=== PATIENT | female | born 1970 | race Caucasian/White ===

== ENCOUNTER → 2018-02-13 08:02 | Outpatient (CLI) | payer OTHER, SELFPAY ==
[2018-02-13 09:04] LABS: Hemoglobin A1C% w Est Avg Glu 6.7 % (4.0-6.0)
[2018-02-13 09:41] LABS: Alanine Aminotransferase 33 IU/L (9-52); Albumin 3.9 g/dL (3.5-5.0); Albumin Globulin Ratio 1.5 (1.0-2.8); Alkaline Phosphatase 71 U/L (38-126); Aspartate Aminotransferase 13 IU/L (14-36); BUN Creatinine Ratio 11.4 (6-22); Bilirubin Total 0.3 mg/dL (0.2-1.3); Blood Urea Nitrogen 8 mg/dL (7-17); Calcium 8.8 mg/dL (8.4-10.2); Carbon Dioxide 26 mmol/L (22-32); Chloride 103 mmol/L (98-107); Cholesterol 135 mg/dL (140-199); Estimated Glomerular Filt Rate > 60.0 mL/min (>60); Globulin 2.6 g/dL (1.7-4.1); Glucose 113 mg/dL (70-100); HDL Cholesterol 36 mg/dL (40-60); HEMOLYSIS < 15 (0-50); LDL Cholesterol Calculated 66 mg/dL (<100); Potassium 4.6 mmol/L (3.4-5.1); Sodium 140 mmol/L (137-145); Total Protein 6.5 g/dL (6.3-8.2); Triglycerides 165 mg/dL (35-150)
== END ==
PROVIDERS: PCP Family Medicine; Visit Provider Family Medicine
DX: E78.5 Hyperlipidemia, unspecified (principal); R73.9 Hyperglycemia, unspecified; Z51.81 Encounter for therapeutic drug level monitoring
CPT/HCPCS: 36415; 80053; 80061; 83036

== ENCOUNTER → 2018-04-19 08:21 | Outpatient (CLI) | payer OTHER, SELFPAY ==
[2018-04-19 08:53] LABS: Add Manual Diff / Slide Review NO; Basophils Percent Auto 0.7 % (0-2); Eosinophils Percent Auto 2.3 % (2-4); Hematocrit 43.9 % (36-46); Hemoglobin 14.7 g/dL (12.0-16.0); Lymphocytes Percent Auto 18.1 % (25-40); Mean Corpuscular HGB Conc 33.4 % (30-36); Mean Corpuscular Hemoglobin 30.3 PG (26-34); Mean Corpuscular Volume 90.8 fL (80-100); Monocytes Percent Auto 6.9 % (3-14); Neutrophils Absolute Auto 9100 /uL (1500-7000); Platelet Count 307 X10^3/uL (150-400); Red Blood Cell Count 4.83 X10^6/uL (4.0-5.2); Red Cell Distribution Width 13.3 % (11.6-14.8); White Blood Cell Count 12.6 X10^3/uL (4.5-11.0)
[2018-04-19 09:05] LABS: BUN Creatinine Ratio 11.4 (6-22); Blood Urea Nitrogen 8 mg/dL (7-17); Carbon Dioxide 24 mmol/L (22-32); Chloride 104 mmol/L (98-107); Cholesterol 145 mg/dL (140-199); Estimated Glomerular Filt Rate > 60.0 mL/min (>60); Glucose 120 mg/dL (70-100); HDL Cholesterol 35 mg/dL (40-60); HEMOLYSIS < 15 (0-50); LDL Cholesterol Calculated 84 mg/dL (<100); Potassium 4.3 mmol/L (3.4-5.1); Sodium 140 mmol/L (137-145); Triglycerides 129 mg/dL (35-150)
[2018-04-19 09:44] LABS: Lithium 0.3 mmol/L (0.6-1.2)
[2018-04-19 10:21] LABS: Thyroid Stimulating Hormone 3.17 uIU/mL (0.47-4.68)
== END ==
PROVIDERS: PCP Family Medicine; Visit Provider Psychiatry & Neurology Psychiatry
DX: Z79.899 Other long term (current) drug therapy (principal)
CPT/HCPCS: 36415; 80051; 80061; 80178; 82565; 82947; 84443; 84520; 85025

== ENCOUNTER → 2018-05-21 13:26 | Outpatient (CLI) | payer OTHER, SELFPAY ==
--- NOTE | 2018-05-21 | DI.MG.S_ITS ---
BILATERAL DIGITAL SCREENING MAMMOGRAM 3D/2D WITH CAD: 05/21/2018 CLINICAL: Routine screening. Comparison is made to exams dated: 04/13/2017 mammogram and 03/28/2016 mammogram - [facility]. There are scattered fibroglandular elements in both breasts. Current study was also evaluated with a Computer Aided Detection (CAD) system. There are benign calcifications in both breasts. No significant masses, calcifications, or other findings are seen in either breast. There has been no significant interval change. IMPRESSION: There is no mammographic evidence of malignancy. A 1 year screening mammogram is recommended. This exam was interpreted at Station ID: [id number]. NOTE: For mammograms, a report in lay terms will be sent to the patient. Approximately 15% of breast malignancies will not be visualized mammographically. In the management of a palpable breast mass, a negative mammogram must not discourage biopsy of a clinically suspicious lesion. Electronically Signed By: Cody alicea/geoffrey:05/21/2018 13:55:59 letter sent: Normal Exam ACR BI-RADS Category 2: Benign Finding(s) 3342F
== END ==
PROVIDERS: PCP Family Medicine; Visit Provider Family Medicine
DX: Z12.31 Encounter for screening mammogram for malignant neoplasm of breast (principal)
CPT/HCPCS: 77063; 77067

== ENCOUNTER → 2018-11-16 07:11 | Outpatient (CLI) | payer SELFPAY ==
[2018-11-16 07:47] LABS: Hemoglobin A1C% w Est Avg Glu 6.1 % (4.0-6.0)
[2018-11-16 08:31] LABS: Alanine Aminotransferase 17 IU/L (9-52); Albumin 4.1 g/dL (3.5-5.0); Albumin Globulin Ratio 1.6 (1.0-2.8); Alkaline Phosphatase 63 U/L (38-126); Aspartate Aminotransferase 13 IU/L (14-36); BUN Creatinine Ratio 11.4 (6-22); Bilirubin Total 0.6 mg/dL (0.2-1.3); Blood Urea Nitrogen 8 mg/dL (7-17); Calcium 9.3 mg/dL (8.4-10.2); Carbon Dioxide 24 mmol/L (22-32); Chloride 104 mmol/L (98-107); Cholesterol 136 mg/dL (140-199); Estimated Glomerular Filt Rate > 60.0 mL/min (>60); Globulin 2.6 g/dL (1.7-4.1); Glucose 103 mg/dL (70-100); HDL Cholesterol 33 mg/dL (40-60); HEMOLYSIS < 15 (0-50); LDL Cholesterol Calculated 81 mg/dL (<100); Potassium 4.5 mmol/L (3.4-5.1); Sodium 136 mmol/L (137-145); Total Protein 6.7 g/dL (6.3-8.2); Triglycerides 109 mg/dL (35-150)
== END ==
PROVIDERS: PCP Family Medicine; Visit Provider Family Medicine
DX: I10 Essential (primary) hypertension (principal); Z51.81 Encounter for therapeutic drug level monitoring
CPT/HCPCS: 36415; 80053; 80061; 83036

== ENCOUNTER → 2019-05-30 11:23 | Outpatient (CLI) | payer OTHER, SELFPAY ==
--- NOTE | 2019-05-30 11:42 | DI.MG.S_ITS ---
Patient Name: NAZ WELLER date: 1970 Sex: F Attending Physician: Hood Indications: Date: 05/30/2019 11:42 At the request of: MARYLIN CARRION Procedure: MM screening mammo BI BILATERAL DIGITAL SCREENING MAMMOGRAM 3D/2D WITH CAD: 05/30/2019 CLINICAL: Routine screening. Comparison is made to exams dated: 05/21/2018 mammogram, 04/13/2017 mammogram, and 03/28/2016 mammogram - [facility]. The tissue of both breasts is heterogeneously dense. This may lower the sensitivity of mammography. Current study was also evaluated with a Computer Aided Detection (CAD) system. No significant masses, calcifications, or other findings are seen in either breast. There has been no significant interval change. IMPRESSION: NEGATIVE There is no mammographic evidence of malignancy. A 1 year screening mammogram is recommended. This exam was interpreted at Station ID: [id number]. NOTE: For mammograms, a report in lay terms will be sent to the patient. Approximately 15% of breast malignancies will not be visualized mammographically. In the management of a palpable breast mass, a negative mammogram must not discourage biopsy of a clinically suspicious lesion. Electronically Signed By: George crawford/geoffrey:05/30/2019 18:29:35 letter sent: Normal Exam ACR BI-RADS Category 1: Negative 3341F
== END ==
PROVIDERS: PCP Family Medicine; Referring Provider Family Medicine; Visit Provider Family Medicine
DX: Z12.31 Encounter for screening mammogram for malignant neoplasm of breast (principal)
CPT/HCPCS: 77063; 77067

== ENCOUNTER → 2019-06-20 07:21 | Outpatient (CLI) | payer OTHER, SELFPAY ==
[2019-06-20 08:52] LABS: Add Manual Diff / Slide Review NO; Basophils Absolute Auto 100 /uL (0-100); Basophils Percent Auto 0.7 % (0-2); Eosinophils Absolute Auto 200 /uL (0-450); Eosinophils Percent Auto 2.2 % (2-4); Hematocrit 44.2 % (36-46); Hemoglobin 15.2 g/dL (12.0-16.0); Lymphocytes Absolute Auto 1900 /uL (1100-4500); Mean Corpuscular HGB Conc 34.4 % (30-36); Mean Corpuscular Hemoglobin 31.5 PG (26-34); Mean Corpuscular Volume 91.7 fL (80-100); Monocytes Absolute Auto 700 /uL (0-900); Monocytes Percent Auto 6.8 % (3-14); Neutrophils Absolute Auto 6900 /uL (1500-7000); Neutrophils Percent Auto 70.3 % (50-75); Platelet Count 298 X10^3/uL (150-400); Red Blood Cell Count 4.82 X10^6/uL (4.0-5.2); Red Cell Distribution Width 12.8 % (11.6-14.8); White Blood Cell Count 9.7 X10^3/uL (4.5-11.0)
[2019-06-20 09:24] LABS: Alanine Aminotransferase 21 IU/L (<35); Albumin 4.2 g/dL (3.5-5.0); Albumin Globulin Ratio 1.4 (1.0-2.8); Alkaline Phosphatase 68 U/L (38-126); Aspartate Aminotransferase 20 IU/L (14-36); Bilirubin Total 0.3 mg/dL (0.2-1.3); Blood Urea Nitrogen 15 mg/dL (7-17); Calcium 8.8 mg/dL (8.4-10.2); Carbon Dioxide 22 mmol/L (22-32); Chloride 105 mmol/L (98-107); Cholesterol 146 mg/dL (140-199); Estimated Glomerular Filt Rate > 60.0 mL/min (>60); Globulin 2.9 g/dL (1.7-4.1); Glucose 129 mg/dL (70-100); HDL Cholesterol 31 mg/dL (40-60); HEMOLYSIS < 15 (0-50); LDL Cholesterol Calculated 83 mg/dL (<100); Potassium 4.3 mmol/L (3.4-5.1); Sodium 137 mmol/L (137-145); Total Protein 7.1 g/dL (6.3-8.2); Triglycerides 161 mg/dL (35-150)
[2019-06-21 11:14] LABS: Hemoglobin A1C% w Est Avg Glu 6.4 % (4.0-6.0)
== END ==
PROVIDERS: Nurse Practitioner Family; Referring Provider Family Medicine; Visit Provider Family Medicine
DX: E78.5 Hyperlipidemia, unspecified (principal); G47.00 Insomnia, unspecified; I10 Essential (primary) hypertension; F43.10 Post-traumatic stress disorder, unspecified
CPT/HCPCS: 36415; 80053; 80061; 83036; 85025

== ENCOUNTER → 2019-08-09 07:13 | Outpatient (CLI) | payer OTHER, SELFPAY ==
[2019-08-09 08:04] LABS: Add Manual Diff / Slide Review NO; Basophils Absolute Auto 100 /uL (0-100); Basophils Percent Auto 0.8 % (0-2); Eosinophils Absolute Auto 200 /uL (0-450); Eosinophils Percent Auto 2.3 % (2-4); Hematocrit 44.6 % (36-46); Lymphocytes Absolute Auto 2200 /uL (1100-4500); Lymphocytes Percent Auto 26.2 % (25-40); Mean Corpuscular HGB Conc 33.6 % (30-36); Mean Corpuscular Hemoglobin 31.2 PG (26-34); Mean Corpuscular Volume 92.8 fL (80-100); Monocytes Absolute Auto 700 /uL (0-900); Monocytes Percent Auto 7.9 % (3-14); Neutrophils Absolute Auto 5300 /uL (1500-7000); Neutrophils Percent Auto 62.8 % (50-75); Platelet Count 325 X10^3/uL (150-400); Red Blood Cell Count 4.81 X10^6/uL (4.0-5.2); Red Cell Distribution Width 12.9 % (11.6-14.8); White Blood Cell Count 8.4 X10^3/uL (4.5-11.0)
[2019-08-09 08:17] LABS: Alanine Aminotransferase 20 IU/L (<35); Albumin 4.3 g/dL (3.5-5.0); Albumin Globulin Ratio 1.4 (1.0-2.8); Alkaline Phosphatase 62 U/L (38-126); Aspartate Aminotransferase 19 IU/L (14-36); BUN Creatinine Ratio 18.5 (6-22); Bilirubin Total 0.3 mg/dL (0.2-1.3); Blood Urea Nitrogen 12 mg/dL (7-17); Calcium 8.7 mg/dL (8.4-10.2); Carbon Dioxide 25 mmol/L (22-32); Chloride 107 mmol/L (98-107); Cholesterol 167 mg/dL (140-199); Estimated Glomerular Filt Rate > 60.0 mL/min (>60); Glucose 121 mg/dL (70-100); HDL Cholesterol 32 mg/dL (40-60); HEMOLYSIS < 15 (0-50); LDL Cholesterol Calculated 98 mg/dL (<100); Potassium 4.2 mmol/L (3.4-5.1); Sodium 138 mmol/L (137-145); Total Protein 7.3 g/dL (6.3-8.2); Triglycerides 185 mg/dL (35-150)
[2019-08-09 08:21] LABS: Lithium 0.5 mmol/L (0.6-1.2)
[2019-08-09 08:24] LABS: Hemoglobin A1C% w Est Avg Glu 6.6 % (4.0-6.0)
== END ==
PROVIDERS: Referring Provider Psychiatry & Neurology Psychiatry; Visit Provider Psychiatry & Neurology Psychiatry
DX: Z13.1 Encounter for screening for diabetes mellitus (principal); Z13.228 Encounter for screening for other metabolic disorders; Z79.899 Other long term (current) drug therapy
CPT/HCPCS: 36415; 80053; 80061; 80178; 83036; 84443; 85025

== ENCOUNTER → 2019-10-04 07:07 | Outpatient (CLI) | payer OTHER, SELFPAY ==
[2019-10-04 08:21] LABS: Hemoglobin A1C% w Est Avg Glu 6.5 % (4.0-6.0)
[2019-10-04 08:24] LABS: Blood Urea Nitrogen 11 mg/dL (7-17); Calcium 8.8 mg/dL (8.4-10.2); Carbon Dioxide 24 mmol/L (22-32); Chloride 106 mmol/L (98-107); Estimated Glomerular Filt Rate > 60.0 mL/min (>60); Glucose 112 mg/dL (70-100); HEMOLYSIS < 15 (0-50); Potassium 4.6 mmol/L (3.4-5.1); Sodium 134 mmol/L (137-145)
[2019-10-04 10:42] LABS: Creatinine Urine Random 48.2 mg/dL
[2019-10-04 10:45] LABS: Microalbumi Creatinin Ratio Ur 45.6 ug/mg CR (<30); Microalbumin Urine Random 2.2 mg/dL (0-1.6)
== END ==
PROVIDERS: PCP Nurse Practitioner Family; Referring Provider Nurse Practitioner Family; Visit Provider Nurse Practitioner Family
DX: E11.9 Type 2 diabetes mellitus without complications (principal)
CPT/HCPCS: 36415; 80048; 82043; 82570; 83036

== ENCOUNTER → 2020-04-03 07:13 | Outpatient (CLI) | payer OTHER, SELFPAY ==
[2020-04-03 08:21] LABS: Hemoglobin A1C% w Est Avg Glu 6.7 % (4.0-6.0)
[2020-04-03 08:28] LABS: BUN Creatinine Ratio 17.9 (6-22); Blood Urea Nitrogen 10 mg/dL (7-17); Calcium 8.9 mg/dL (8.4-10.2); Carbon Dioxide 28 mmol/L (22-32); Chloride 105 mmol/L (98-107); Estimated Glomerular Filt Rate > 60.0 mL/min (>60); Glucose 120 mg/dL (70-100); HEMOLYSIS < 15 (0-50); Potassium 4.5 mmol/L (3.4-5.1); Sodium 136 mmol/L (137-145)
== END ==
PROVIDERS: PCP Nurse Practitioner Family; Referring Provider Nurse Practitioner Family; Visit Provider Nurse Practitioner Family
DX: E11.9 Type 2 diabetes mellitus without complications (principal)
CPT/HCPCS: 36415; 80048; 83036

== ENCOUNTER → 2020-06-03 15:38 | Outpatient (CLI) | payer OTHER, SELFPAY ==
--- NOTE | 2020-06-03 | DI.MG.S_ITS ---
BILATERAL DIGITAL SCREENING MAMMOGRAM 3D/2D WITH CAD: 06/03/2020 CLINICAL: Routine screening. Comparison is made to exams dated: 05/30/2019 mammogram, 05/21/2018 mammogram, and 04/13/2017 mammogram - [facility]. The tissue of both breasts is heterogeneously dense. This may lower the sensitivity of mammography. Current study was also evaluated with a Computer Aided Detection (CAD) system. No significant masses, calcifications, or other findings are seen in either breast. There has been no significant interval change. IMPRESSION: NEGATIVE There is no mammographic evidence of malignancy. A 1 year screening mammogram is recommended. This exam was interpreted at Station ID: [id number]. NOTE: For mammograms, a report in lay terms will be sent to the patient. Approximately 15% of breast malignancies will not be visualized mammographically. In the management of a palpable breast mass, a negative mammogram must not discourage biopsy of a clinically suspicious lesion. Electronically Signed By: Kevin Alvarenga acr/penrad:06/03/2020 16:59:15 letter sent: Normal Exam ACR BI-RADS Category 1: Negative 3341F
== END ==
PROVIDERS: PCP Nurse Practitioner Family; Referring Provider Nurse Practitioner Family; Visit Provider Nurse Practitioner Family
DX: Z12.31 Encounter for screening mammogram for malignant neoplasm of breast (principal)
CPT/HCPCS: 77063; 77067

== ENCOUNTER 2020-06-07 18:02 | Emergency (ER) | payer OTHER, SELFPAY ==
[2020-06-07 18:19] VITALS: BP 122/58; PULSE 77; RESP 16; TEMP 36.8; O2SAT 97; BMI 26.5
--- NOTE | 2020-06-07 18:30 | ED.BACK ---
HPI - Back Pain/Injury General Chief Complaint: Back Pain/Injury Stated Complaint: pain in lower back and hip Time Seen by Provider: 06/07/20 18:27 History of Present Illness HPI Narrative: 49-year-old woman with a history of bipolar disorder currently stable on medications including lithium, diabetes and hyperlipidemia presents with acute back pain. She has had intermittent issues with her neck and upper back due to posture, work position, sitting in computers and very large breasts complicating issues. She has not typically have problems with low back pain. Today she was standing outside she coughed and felt a slight twinge in the left side of her lower back that rapidly progressed to severe spasm to the point that she had trouble walking up to stairs. She notes that 2 or 3 days ago she was moving and debbie and and felt a slight twinge in her low back and had been noticing that that area was slightly more sensitive but it having particularly been bothering her. For pain medication she uses topical Voltaren and tries to avoid home medications to not complicate any of her lithium levels. She has had no fever or chills, there is no IV drug use, she has has no interventions or procedures to her spine. She describes no rashes, no abdominal pain, no flank pain no dysuria. No cough or palpitations. Related Data Home Medications Medication Instructions Recorded Confirmed calcium carbonate 600 mg PO QDAY #0 07/28/17 08/14/19 lurasidone [Latuda] 60 mg PO QDAY #0 07/28/17 08/14/19 lithium carbonate 600 mg capsule 600 mg PO BEDTIME 08/14/19 08/14/19 sertraline 50 mg tablet 50 mg PO DAILY 08/14/19 08/14/19 Previous Rx's Medication Instructions Recorded atorvastatin 10 mg tablet 10 mg PO HS #90 tab 11/18/19 diclofenac sodium 1 % topical gel 2 g TOPICAL QID #100 g 04/21/20 metformin 500 mg tablet,extended See Rx Instructions .ROUTE 04/21/20 release 24 hr .COMPLEX #90 tab diazepam 5 mg PO TID PRN #14 tab 06/07/20 Allergies Allergy/AdvReac Type Severity Reaction Status Date / Time codeine [CODEINE] Allergy Unknown Verified 08/14/19 12:03 Review of Systems Review of Systems ROS Unobtainable: All systems reviewed & are unremarkable except as noted in HPI and below Patient History Medical History Bipolar disorder HTN (hypertension) Hyperlipidemia Neck muscle strain Type 2 diabetes mellitus without complication (07/2019) Surgical History Status post appendectomy Status post delivery Social History Smoking Status: Current every day smoker quit status: considering quitting second hand exposure: No alcohol intake: never substance use type: marijuana (daily ) Smoking Status: Current every day smoker Exam Narrative Exam Narrative: General: Healthy appearing, in in significant pain but able to give a complete and coherent history. Well-nourished well-developed Neck: supple, no significant neck pain or decreased range of motion Respiratory: Lungs are clear to auscultation, no wheezing no rales no rhonchi. Full and symmetrical air movement Cardiac: Regular rate and rhythm no murmurs no bruits Abdomen: Soft, nontender, good bowel tones, no flank pain Skin: Warm and dry, no rashes Neurologic: Grossly neurologically intact with no obvious asymmetries or abnormalities. Symmetrical patellar reflexes and ankle jerks. No specific weakness in the lower extremities and no loss of sensation to the perineum. She is able to walk, gait is antalgic Extremities: No trauma, well perfused, straight leg lift on the left does cause an increase in the muscle spasm but she is able to fully extend. Minimal difficulties with fully extending the right leg. Psych: Cooperative, appropriate insight and affect Initial Vital Signs Initial Vital Signs: Vital Signs Temperature 98.3 F 06/07/20 18:19 Pulse Rate 77 06/07/20 18:19 Respiratory Rate 16 06/07/20 18:19 Blood Pressure 122/58 L 06/07/20 18:19 Pulse Oximetry 97 06/07/20 18:19 Course Orders Ordered: Discontinued Medications Diazepam (Diazepam 5 Mg Tablet) 5 mg PO NOW ONE Stop: 06/07/20 18:48 Last Admin: 06/07/20 19:17 Dose: 5 mg Documented by: VENESSA Ketorolac Tromethamine (Ketorolac 60 Mg/2 Ml Vial) 30 mg IM NOW ONE Stop: 06/07/20 18:48 Last Admin: 06/07/20 19:18 Dose: 30 mg Documented by: VENESSA Vital Signs Vital signs: Vital Signs - 8 hr 06/07/20 18:19 Temperature 98.3 F Pulse Rate 77 Respiratory Rate 16 Blood Pressure 122/58 L Pulse Oximetry 97 [facility] - Back Pain/Injury Medical Records Attestation: I reviewed the patient's medical records. Lab Data Attestation: I reviewed the patient's lab results. [facility] Narrative Medical decision making narrative: 49-year-old woman with acute low back strain no evidence of trauma, infection/epidural abscess or other red flags that need additional workup per imaging. She responded nicely to IM Toradol and 5 mg of oral diazepam for muscle spasm. At this point she is safe for home discharge Discharge Plan Departure Patient Disposition: Home Clinical Impression: Acute back pain Qualifiers: Back pain location: low back pain Back pain laterality: right Sciatica presence: without sciatica Qualified Code(s): M54.5 - Low back pain Instructions: DI for Back Strain or Sprain Activity Restrictions/Additional Instructions: Thank you for coming in today You have a fairly classic presentation of an acute back strain. There is no evidence of more significant disease or pathology on your exam today. You are given a shot of Toradol(similar to ibuprofen) for pain and oral diazepam to help with muscle spasm. Using 400 mg of ibuprofen (2 [id number] pills) and 1 Tylenol every 6 hours can be very helpful in controlling pain. To this you can add 5 mg of diazepam for muscle spasm up to every 8 hours. Please make sure you do remain active, walking can be helpful in getting you back to full activity sooner. I would encourage you to schedule that PT appointment that you have been putting off. If things get worse, please feel free to return to the emergency department Prescriptions: New diazepam 5 mg tablet 5 mg PO TID PRN (Reason: muscle spasm) Qty: 14 RF: 0 No Action calcium carbonate 600 MG tablet 600 mg PO QDAY Qty: 0 RF: 0 lurasidone [Latuda] 60 MG tablet 60 mg PO QDAY Qty: 0 RF: 0 atorvastatin [Lipitor] 10 mg tablet 10 mg PO HS Qty: 90 RF: 2 sertraline 50 mg tablet 50 mg PO DAILY RF: 0 lithium carbonate 600 mg capsule 600 mg PO BEDTIME RF: 0 metformin 500 mg tablet extended release 24 hr See Rx Instructions .ROUTE .COMPLEX Qty: 90 RF: 2 diclofenac sodium 1 % gel 2 g topical QID Qty: 100 RF: 0 Referrals: Murphy Woodard ARNP [Primary Care Provider] -
[2020-06-07] MEDS: diazePAM 5 MG TABLET PO (19:17)
[2020-06-07] MEDS: KETOROLAC 60 MG/2 ML VIAL 30 MG IM (19:18)
[2020-06-07 20:16] VITALS: BP 104/54; PULSE 70; RESP 16; O2SAT 98
== END 2020-06-07 20:18 | disposition home or self-care (01) ==
PROVIDERS: Emergency Provider Emergency Medicine; PCP Nurse Practitioner Family
DX: M54.5 Low back pain (principal); M62.830 Muscle spasm of back; F31.9 Bipolar disorder, unspecified; I10 Essential (primary) hypertension; E78.5 Hyperlipidemia, unspecified; E11.9 Type 2 diabetes mellitus without complications
CPT/HCPCS: 96372; 99281; 99283; J1885

== ENCOUNTER → 2020-07-06 07:22 | Outpatient (CLI) | payer OTHER, SELFPAY ==
[2020-07-06 08:10] LABS: Hematocrit 42.5 % (36-46); Hemoglobin 14.6 g/dL (12.0-16.0); Mean Corpuscular HGB Conc 34.3 % (30-36); Mean Corpuscular Hemoglobin 31.4 PG (26-34); Mean Corpuscular Volume 91.6 fL (80-100); Platelet Count 298 X10^3/uL (150-400); Red Blood Cell Count 4.63 X10^6/uL (4.0-5.2); Red Cell Distribution Width 12.9 % (11.6-14.8); White Blood Cell Count 7.8 X10^3/uL (4.5-11.0)
[2020-07-06 08:26] LABS: Hemoglobin A1C% w Est Avg Glu 6.5 % (4.0-6.0)
[2020-07-06 08:33] LABS: Alanine Aminotransferase 21 IU/L (<35); Albumin 4.2 g/dL (3.5-5.0); Albumin Globulin Ratio 1.7 (1.0-2.8); Alkaline Phosphatase 64 U/L (38-126); Aspartate Aminotransferase 20 IU/L (14-36); BUN Creatinine Ratio 17.9 (6-22); Bilirubin Total 0.2 mg/dL (0.2-1.3); Blood Urea Nitrogen 10 mg/dL (7-17); Calcium 8.7 mg/dL (8.4-10.2); Carbon Dioxide 25 mmol/L (22-32); Chloride 107 mmol/L (98-107); Cholesterol 175 mg/dL (140-199); Estimated Glomerular Filt Rate > 60.0 mL/min (>60); Globulin 2.5 g/dL (1.7-4.1); Glucose 137 mg/dL (70-100); HDL Cholesterol 39 mg/dL (40-60); HEMOLYSIS < 15 (0-50); LDL Cholesterol Calculated 104 mg/dL (<100); Potassium 4.5 mmol/L (3.4-5.1); Sodium 135 mmol/L (137-145); Total Protein 6.7 g/dL (6.3-8.2); Triglycerides 162 mg/dL (35-150)
== END ==
PROVIDERS: PCP Nurse Practitioner Family; Referring Provider Nurse Practitioner Family; Visit Provider Nurse Practitioner Family
DX: Z00.00 Encounter for general adult medical examination without abnormal findings (principal); E11.9 Type 2 diabetes mellitus without complications; E78.5 Hyperlipidemia, unspecified; I10 Essential (primary) hypertension; Z13.6 Encounter for screening for cardiovascular disorders
CPT/HCPCS: 36415; 80053; 80061; 83036; 85027

== ENCOUNTER → 2020-10-28 07:02 | Outpatient (CLI) | payer OTHER, SELFPAY ==
[2020-10-28 08:46] LABS: Hemoglobin A1C% w Est Avg Glu 6.6 % (4.0-6.0)
[2020-10-28 08:52] LABS: Alanine Aminotransferase 19 IU/L (<35); Albumin Globulin Ratio 1.5 (1.0-2.8); Alkaline Phosphatase 48 U/L (38-126); Aspartate Aminotransferase 18 IU/L (14-36); BUN Creatinine Ratio 16.1 (6-22); Bilirubin Total 0.2 mg/dL (0.2-1.3); Blood Urea Nitrogen 9 mg/dL (7-17); Calcium 8.9 mg/dL (8.4-10.2); Carbon Dioxide 24 mmol/L (22-32); Chloride 107 mmol/L (98-107); Cholesterol 152 mg/dL (140-199); Estimated Glomerular Filt Rate > 60.0 mL/min (>60); Globulin 2.6 g/dL (1.7-4.1); Glucose 130 mg/dL (70-100); HDL Cholesterol 35 mg/dL (40-60); HEMOLYSIS < 15 (0-50); LDL Cholesterol Calculated 101 mg/dL (<100); Potassium 4.3 mmol/L (3.4-5.1); Sodium 137 mmol/L (137-145); Total Protein 6.6 g/dL (6.3-8.2); Triglycerides 80 mg/dL (35-150)
== END ==
PROVIDERS: PCP Nurse Practitioner Family; Referring Provider Psychiatry & Neurology Psychiatry; Visit Provider Psychiatry & Neurology Psychiatry
DX: Z79.899 Other long term (current) drug therapy (principal); E11.9 Type 2 diabetes mellitus without complications; Z00.00 Encounter for general adult medical examination without abnormal findings; E78.2 Mixed hyperlipidemia
CPT/HCPCS: 36415; 80053; 80061; 83036

== ENCOUNTER → 2021-06-08 11:06 | Outpatient (CLI) | payer OTHER, SELFPAY ==
--- NOTE | 2021-06-08 | DI.MG.S_ITS ---
BILATERAL DIGITAL SCREENING MAMMOGRAM 3D/2D WITH CAD: 06/08/2021 CLINICAL: Routine screening. Comparison is made to exams dated: 05/30/2019 mammogram, 05/21/2018 mammogram, and 04/13/2017 mammogram - [facility]. There are scattered fibroglandular elements in both breasts. Current study was also evaluated with a Computer Aided Detection (CAD) system. No significant masses, calcifications, or other findings are seen in either breast. There has been no significant interval change. IMPRESSION: NEGATIVE There is no mammographic evidence of malignancy. A 1 year screening mammogram is recommended. This exam was interpreted at Station ID: [id number]. NOTE: For mammograms, a report in lay terms will be sent to the patient. Approximately 15% of breast malignancies will not be visualized mammographically. In the management of a palpable breast mass, a negative mammogram must not discourage biopsy of a clinically suspicious lesion. Electronically Signed By: Constanza leonard/geoffrey:06/08/2021 12:26:01 letter sent: Normal Exam ACR BI-RADS Category 1: Negative 3341F
== END ==
PROVIDERS: PCP Nurse Practitioner Family; Referring Provider Nurse Practitioner Family; Visit Provider Nurse Practitioner Family
DX: Z12.31 Encounter for screening mammogram for malignant neoplasm of breast (principal)
CPT/HCPCS: 77063; 77067

== ENCOUNTER → 2021-07-05 07:03 | Outpatient (CLI) | payer OTHER, SELFPAY ==
[2021-07-05 09:01] LABS: Hematocrit 41.2 % (36-46); Hemoglobin 14.2 g/dL (12.0-16.0); Mean Corpuscular HGB Conc 34.4 % (30-36); Mean Corpuscular Hemoglobin 30.8 PG (26-34); Mean Corpuscular Volume 89.3 fL (80-100); Platelet Count 302 X10^3/uL (150-400); Red Blood Cell Count 4.61 X10^6/uL (4.0-5.2); Red Cell Distribution Width 12.6 % (11.6-14.8); White Blood Cell Count 7.3 X10^3/uL (4.5-11.0)
[2021-07-05 09:11] LABS: Hemoglobin A1C% w Est Avg Glu 7.2 % (4.0-6.0)
[2021-07-05 09:47] LABS: Alanine Aminotransferase 24 IU/L (<35); Albumin 4.4 g/dL (3.5-5.0); Albumin Globulin Ratio 1.6 (1.0-2.8); Alkaline Phosphatase 56 U/L (38-126); Aspartate Aminotransferase 20 IU/L (14-36); BUN Creatinine Ratio 17.4 (6-22); Bilirubin Total 0.3 mg/dL (0.2-1.3); Blood Urea Nitrogen 12 mg/dL (7-17); Calcium 8.8 mg/dL (8.4-10.2); Carbon Dioxide 24 mmol/L (22-32); Chloride 107 mmol/L (98-107); Estimated Glomerular Filt Rate > 60.0 mL/min (>60); Globulin 2.7 g/dL (1.7-4.1); Glucose 137 mg/dL (70-100); HEMOLYSIS < 15 (0-50); Potassium 4.2 mmol/L (3.4-5.1); Sodium 136 mmol/L (137-145); Total Protein 7.1 g/dL (6.3-8.2)
== END ==
PROVIDERS: PCP Nurse Practitioner Family; Referring Provider Nurse Practitioner Family; Visit Provider Nurse Practitioner Family
DX: E11.9 Type 2 diabetes mellitus without complications (principal); I10 Essential (primary) hypertension; Z00.00 Encounter for general adult medical examination without abnormal findings
CPT/HCPCS: 36415; 80053; 83036; 85027

== ENCOUNTER → 2021-07-15 13:50 | Outpatient (CLI) | payer OTHER, SELFPAY ==
[2021-07-15 14:37] LABS: Appearance Urine UA CLEAR; Bilirubin Urine UA NEGATIVE (NEGATIVE); Color Urine UA YELLOW; Glucose Urine UA NEGATIVE (Negative); Ketones Urine UA NEGATIVE (NEGATIVE); Leukocyte Esterase Urine UA NEGATIVE (NEGATIVE); Nitrite Urine UA NEGATIVE (Negative); Occult Blood Urine UA NEGATIVE (Negative); Protein Urine UA NEGATIVE (Negative); Specific Gravity Urine UA <=1.005 (1.000-1.035); Urobilinogen Urine UA 0.2 E.U./dL (0.2)
[2021-07-15 14:42] LABS: pH Urine UA 5.5 (4.5-8.0)
[2021-07-15 14:47] LABS: Bacteria Urine None Seen; Culture Indicated Urine Cult Not Indicated; RBC Urine None Seen (0-5/HPF); WBC Urine None Seen (0-5/HPF)
== END ==
PROVIDERS: PCP Nurse Practitioner Family; Referring Provider Nurse Practitioner Family; Visit Provider Nurse Practitioner Family
DX: R35.0 Frequency of micturition (principal)
CPT/HCPCS: 81001

== ENCOUNTER → 2022-06-08 06:57 | Outpatient (CLI) | payer OTHER, SELFPAY ==
[2022-06-08 07:26] LABS: Add Manual Diff / Slide Review NO; Basophils Absolute Auto 100 /uL (0-100); Basophils Percent Auto 0.8 % (0-2); Eosinophils Absolute Auto 300 /uL (0-450); Eosinophils Percent Auto 3.3 % (2-4); Hematocrit 40.8 % (36-46); Lymphocytes Absolute Auto 1600 /uL (1100-4500); Lymphocytes Percent Auto 19.4 % (25-40); Mean Corpuscular HGB Conc 34.2 % (30-36); Mean Corpuscular Volume 87.5 fL (80-100); Monocytes Absolute Auto 500 /uL (0-900); Monocytes Percent Auto 5.4 % (3-14); Neutrophils Absolute Auto 6000 /uL (1500-7000); Neutrophils Percent Auto 71.1 % (50-75); Platelet Count 350 X10^3/uL (150-400); Red Blood Cell Count 4.66 X10^6/uL (4.0-5.2); Red Cell Distribution Width 13.2 % (11.6-14.8); White Blood Cell Count 8.4 X10^3/uL (4.5-11.0)
[2022-06-08 07:34] LABS: Hemoglobin A1C% w Est Avg Glu 7.2 % (4.0-6.0)
[2022-06-08 07:45] LABS: Alanine Aminotransferase 30 IU/L (<35); Albumin 4.4 g/dL (3.5-5.0); Albumin Globulin Ratio 1.6 (1.0-2.8); Alkaline Phosphatase 65 U/L (38-126); Aspartate Aminotransferase 22 IU/L (14-36); BUN Creatinine Ratio 13.8 (6-22); Bilirubin Total 0.3 mg/dL (0.2-1.3); Blood Urea Nitrogen 8 mg/dL (7-17); Calcium 8.7 mg/dL (8.4-10.2); Carbon Dioxide 25 mmol/L (22-32); Chloride 103 mmol/L (98-107); Cholesterol 160 mg/dL (140-199); Estimated Glomerular Filt Rate > 60 mL/min (>60); Globulin 2.7 g/dL (1.7-4.1); Glucose 147 mg/dL (70-100); HDL Cholesterol 44 mg/dL (40-60); HEMOLYSIS < 15 (0-50); LDL Cholesterol Calculated 85 mg/dL (<100); Potassium 4.5 mmol/L (3.4-5.1); Sodium 135 mmol/L (137-145); Total Protein 7.1 g/dL (6.3-8.2); Triglycerides 155 mg/dL (35-150)
[2022-06-08 08:01] LABS: Prolactin 8.1 ng/mL (3.0-18.6)
[2022-06-08 09:05] LABS: Iron 67 ug/dL (37-170); Lithium 0.3 mmol/L (0.6-1.2)
[2022-06-08 09:20] LABS: Vitamin D 25 Hydroxy (D3) 47.6 ng/mL (30.0-100.0)
[2022-06-08 09:34] LABS: Thyroid Stimulating Hormone 1.02 uIU/mL (0.47-4.68)
== END ==
PROVIDERS: Pediatrics; PCP Family Medicine; Referring Provider Psychiatry & Neurology Psychiatry; Visit Provider Psychiatry & Neurology Psychiatry
DX: Z79.899 Other long term (current) drug therapy (principal); E11.9 Type 2 diabetes mellitus without complications
CPT/HCPCS: 36415; 80053; 80061; 80178; 82306; 83036; 83540; 84146; 84443; 85025

== ENCOUNTER → 2022-06-27 14:44 | Outpatient (CLI) | payer OTHER, SELFPAY ==
--- NOTE | 2022-06-27 | DI.MG.S_ITS ---
BILATERAL DIGITAL SCREENING MAMMOGRAM 3D/2D WITH CAD: 06/27/2022 CLINICAL: Routine screening. Comparison is made to exams dated: 06/08/2021 mammogram, 06/03/2020 mammogram, and 05/30/2019 mammogram - [facility]. There are scattered areas of fibroglandular density in both breasts (category b / 25%-50% glandular tissue). Current study was also evaluated with a Computer Aided Detection (CAD) system. No significant masses, calcifications, or other findings are seen in either breast. There has been no significant interval change. IMPRESSION: NEGATIVE There is no mammographic evidence of malignancy. A 1 year screening mammogram is recommended. Based on the Tyrer Cuzick model (a risk assessment model) the patient's lifetime risk is 9.3% and her 10 year risk is 2.2%. According to the ACR, ACS, and NCCN guidelines, an annual breast MRI exam along with mammogram is recommended if the patient's lifetime risk is 20% or greater. This exam was interpreted at Station ID: [id number]. NOTE: For mammograms, a report in lay terms will be sent to the patient. Approximately 15% of breast malignancies will not be visualized mammographically. In the management of a palpable breast mass, a negative mammogram must not discourage biopsy of a clinically suspicious lesion. Electronically Signed By: Cameron Henderson M.D., jr/geoffrey:06/28/2022 14:05:17 letter sent: Normal Exam ACR BI-RADS Category 1: Negative 3341F
--- NOTE | 2022-06-27 15:15 | DI.DEXA.S_ITS ---
Indication: screening for osteoporosis; Referring Provider: YAMILET PAN Study: Bone densitometry was performed. Exam Date: June 27, 2022 Accession number: [id number] Bone Density: Region BMD T-score Z-score Classification AP Spine(L1, L2, L4) 1.081 0.4 1.2 Normal Femoral Neck (Left) 0.802 -0.4 0.4 Normal Total Hip (Left) 0.971 0.2 0.7 Normal Femoral Neck (Right) 0.771 -0.7 0.1 Normal Total Hip (Right) 0.985 0.4 0.9 Normal Total Hip Mean 0.978 0.3 0.8 Normal World Health Organization criteria for BMD impression classify patients as: Normal (T-score at or above -1.0), Osteopenia (T-score between -1.0 and -2.5), or Osteoporosis (T-score at or below -2.5). 10-year Fracture Risk: FRAX not reported because: Premenopausal woman All T-scores for Spine Total, Hip Total, Femoral Neck at or above -1.0 Impression: The patient's bone mass is within expected range for age, gender and ethnicity. Discussion: BONE DENSITY IS WITHIN EXPECTED LIMITS FOR AGE, SEX AND RACE. Bone density is within expected limits for age, sex and race at all sites measured. The patient should follow a healthful lifestyle (good nutrition with adequate calcium and vitamin D, and appropriate weight-bearing exercise). Follow-Up: Consider repeating this study in 5 years or sooner if there is some new clinical indication. Reported by: Natalie Elizondo M.D. on 06/27/2022 3:31:00 PM.
== END ==
PROVIDERS: PCP Family Medicine; Referring Provider Family Medicine; Visit Provider Family Medicine
DX: Z13.820 Encounter for screening for osteoporosis (principal); Z78.0 Asymptomatic menopausal state; Z12.31 Encounter for screening mammogram for malignant neoplasm of breast
CPT/HCPCS: 77063; 77067; 77080

== ENCOUNTER → 2022-07-15 13:17 | Outpatient (CLI) | payer OTHER, SELFPAY ==
[2022-07-15 13:59] LABS: Creatinine Urine Random 14.9 mg/dL
[2022-07-15 14:14] LABS: Microalbumin Urine Random < 0.6 mg/dL (0-1.6)
== END ==
PROVIDERS: PCP Family Medicine; Referring Provider Family Medicine; Visit Provider Family Medicine
DX: E11.9 Type 2 diabetes mellitus without complications (principal); I10 Essential (primary) hypertension
CPT/HCPCS: 82043; 82570

== ENCOUNTER → 2022-09-22 11:03 | Outpatient (CLI) | payer OTHER, SELFPAY ==
--- NOTE | 2022-09-06 16:41 | PT.OIE ---
Current Diagnoses Pain in right wrist (09/22/22) Postural kyphosis, site unspecified (09/22/22) Postural lordosis, site unspecified (09/22/22) Pain in right arm (09/22/22) Past Medical History Bipolar disorder Chronic neck pain (~1999) HTN (hypertension) Hyperlipidemia Type 2 diabetes mellitus without complication (07/2019) Vaping nicotine dependence, tobacco product (04/2021) Past Surgical History (Last Reviewed 05/06/22 @ 13:51 by Kirsten Banda PA-C) Status post appendectomy Status post delivery Visit Care Team Role Provider Type Jaye Hurtado DO Attending Provider Physician Family Provider Primary Care Provider Referring Provider Specialty: Medical Address: [address] [place] [address], [address], [place], [address] Email: [email or web address] Physical Therapy Initial Evaluation PT-OP-A Visit Information Start: 09/02/22 20:37 Freq: Status: Active Protocol: Document 09/06/22 08:03 LRN (Rec: 09/06/22 08:53 LRN [id number]) Out-Patient Physical Therapy Visit Information Visit Information Visit Type Initial Evaluation Visit Start Time 08:03 Visit Stop Time 08:52 Total Visit Minutes 49 Visit Number 1 Evaluation Information Evaluation Date 09/06/22 Precautions Precautions Diabetes type II, depression, neck pain 2019. PT-OP-B Current Condition Start: 09/02/22 20:37 Freq: Status: Active Protocol: Document 09/06/22 08:03 LRN (Rec: 09/06/22 08:53 LRN [id number]) Current Condition History of Current Condition Onset Date November Current Complaints Pain R UE History of Current Condition Pain goes up/down the R arm, starting at lateral elbow. Pt thought it was carpel tunnel. Took time off to have child, then returned to work and then her brother grabbed her R arm and twisted the forearm away from her body; therefore it may have caused the problem . Prior Treatments and Tests No. Future Testing and Treatments Planned Next week nerve conduction test in 9 days. Developmental History Developmental History Has 9 year old son. Had problems with the R arm previously from too much typing and while had similar problem with arm, but not sharp pain like now. Wears compression sleeve over the elbow and a separate one for the wrist. Wears brace at nighttime to keep the R wrist at a good angle. Treatment Goals Patient/Caregiver Goals Pt goals: Improve strength to hold things Decrease pain with grabbing objects the size of a jar. Open new jars using modified techniques. Pt able to work 6 hrs using computer using modified techniques and modalities to elimnate soreness at end of the day. Current Functional Impairments (Reported) Functional Limitations- ADL's Difficulty and pain grabbing and holding things with force (no problems with a cooking or using a knife), and opening jars, working 6hrs or more causes soreness in arm. Functional Limitations- Work/School Returned to work 4 yrs ago after taking time off to have baby. 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 PT-OP-C Subjective Start: 09/02/22 20:37 Freq: Status: Active Protocol: Document 09/06/22 08:03 LRN (Rec: 09/06/22 08:53 LRN [id number]) Patient Questionnaires Quick Dash- Upper Extremity Quick Dash UE Score 34 Quick Dash UE Impairment 20 to 39% Impaired (Score 20- 39) OP-PT Pain Assessment Pain Assessment Grid Paper Pain Assessment Grid Completed Yes Location Suboccipital Pain Location Details Bilateral supoccipital Intensity 6 Scale Used Numeric (0 - 10) Description Aching Description- Other After work R wrist Pain Location Details Lateral elbow to middle finger and up lateral side of arm, neck, under ear Intensity 9 Scale Used Numeric (0 - 10) Description Sharp,Shooting Other Pain Aggravating Factors Grabbing weighted object and after work. PT-OP-H Neuro Start: 09/02/22 20:37 Freq: Status: Active Protocol: Document 09/06/22 08:03 LRN (Rec: 09/06/22 08:53 N [id number]) Sensation Evaluation Gross Sensation Gross Sensation Right UE Impaired Sensation Description Tingling Comments Summary Comments Light tingle in the R hand with prolonged standing. Coordination Evaluation Upper Extremity Tests Right Finger to Nose Test R slight low to tip of nose Left Finger to Nose Test Normal Performance Deep Tendon Reflex & Clonus Assessment Deep Tendon Reflex Bilateral Brachioradialis Deep Tendon Reflex 2+ Normal Right Tricep Deep Tendon Reflex 2+ Normal Right Bicep Deep Tendon Reflex 2+ Normal Brachioradialis Deep Tendon Reflex 2+ Normal Tricep Deep Tendon Reflex 2+ Normal Left Bicep Deep Tendon Reflex 2+ Normal PT-OP-J Posture/Palpation/Skin Start: 09/02/22 20:37 Freq: Status: Active Protocol: Document 09/06/22 08:03 LRN (Rec: 09/06/22 08:53 LRN [id number]) Posture Evaluation Position Sitting Head/C-Spine Posture Side Bent Right T-Spine Posture Increased Kyphosis L-Spine Posture Increased Lordosis Scapula Posture (R) Elevated Arm Posture (L) Internally Rotated,(R) Internally Rotated Knee Posture (L) Genu Recurvatum,(R) Genu Recurvatum Palpation Assessment Location Back Palpation Location R paraspinals Palpation Details Atrophy of muscles. R wrist Palpation Location Dorsal region of mid-section of wrist and digits 2-4 Palpation Details Soreness at end of work day. PT-OP-K Range of Motion Start: 09/02/22 20:37 Freq: Status: Active Protocol: Document 09/06/22 08:03 LRN (Rec: 09/06/22 08:53 LRN [id number]) Elbow/Forearm Range of Motion Elbow/Forearm Right Active ROM Testing Position Sitting Supination (degrees) 64 Comments All motions WNL except as indicated above. Painful with supination. Left Active ROM Testing Position Sitting Supination (degrees) 68 Comments All motions WNL Wrist Goniometric Range of Motion Wrist Right Flexion Active (degrees) 70 Extension Active (degrees) 54 Ulnar Deviation Active (degrees) 28 Radial Deviation Active (degrees) 28 Left Wrist ROM WFL Yes Flexion Active (degrees) 70 Extension Active (degrees) 65 Ulnar Deviation Active (degrees) 40 Radial Deviation Active (degrees) 34 PT-OP-M Strength Start: 09/02/22 20:37 Freq: Status: Active Protocol: Document 09/06/22 08:03 LRN (Rec: 09/06/22 08:53 LRN [id number]) Wrist Strength Wrist Manual Muscle Testing Right Flexion (C7) 3+ Fair+ Extension (C6) 5 Normal Ulnar Deviation 5 Normal Radial Deviation 3 Fair Left Comments Strength is 5/5 Hand Chassis Inspector/Pinch Strength Hand Dominance Hand Dominance Right Hand Strength Right Comments Chassis Inspector strength in kgs (3 trials taken): Right: 8, 6, 6; Avg is 6.7 kgs. Left Comments Chassis Inspector strength in kgs (3 trials taken): Right: 13, 12, 14; Avg is 13 kgs. PT-OP-Q Treatments Start: 09/02/22 20:37 Freq: Status: Active Protocol: Document 09/06/22 08:03 LRN (Rec: 09/06/22 08:53 LRN [id number]) Self-Care/Home Management Treatment Education Patient Education Home Exercise Program Other Education Discussed results of evaluation, goals, and plan of care (POC). Pt agreeable to goals and POC. Activities Self-Care/Home Management Activities I/S pt in self R wrist stretch into extension, UD/RD, using other hand to assist stretch. PT-OP-T Assessment and Plan Start: 09/02/22 20:37 Freq: Status: Active Protocol: Document 09/06/22 08:03 LRN (Rec: 09/06/22 08:53 LRN [id number]) Physical Therapy Assessment Rehab Potential Rehabilitation Potential Good Evaluation Complexity Number of Personal Factors/Comorbidities 1-2 Number of Body Systems Impaired 4 or More Clinical Presentation at Evaluation Evolving Impairments Impairments Activity Tolerance,Functional Activities,Pain,Posture,ROM, Sensation,Soft Tissue Mobility ,Strength Goals Three Impairment Decreased function of R wrist Short Term Goal (STG) Decrease R UE pain with grabbing objects the size of a jar. STG Duration 10/21/22 [facility] Goal (LTG) Pt able to work 6 hrs using computer using modified techniques and modalities to elimnate soreness at end of the day. LTG Duration 11/04/22 Two Impairment Decreased R board filler strength Impairment (Initial) R Chassis Inspector strength in kgs (3 trials taken): Right: 8, 6, 6; Avg is 6.7 kgs. (Initial) L Chassis Inspector strength in kgs (3 trials taken): Right: 13, 12, 14; Avg is 13 kgs. Short Term Goal (STG) Improve strength to hold wide objects like an apple in R hand without pain. STG Duration 10/21/22 [facility] Goal (LTG) Open new jars with R hand using modified techniques. LTG Duration 11/04/22 One Impairment Lacks appropriates self care HEP. Short Term Goal (STG) Pt will be educated in a self care treatment of edema/pain management and modified gripping techniques to decrease pain with use. STG Duration 10/21/22 [facility] Goal (LTG) Pt will be educated in a self snf exer program to improve, posture, R UE mobility, strength and function. LTG Duration 11/04/22 Assessment Summary Assessment Pt is a 52 yo female who presents with possible C7 and UE neural tension (radial> medial>ulnar). Pt c/o R lateral elbow pain that radiates up her neck and down to her wrist and hand. Her forearm/wrist/hand pain appears to be in C7 dermatome and radial nerve sensory patterns. Further assessment of the neck and R shoulder will be needed for cervical and shoulder involvement. DTR response is normal bilaterally. Therapy will focus on further neck/shoulder /elbow/wrist involvement, manual therapy, flexibility & strengthening ex's, functional joint movement and functional movement training. The pt will benefit from skilled physical therapy to promote improved posture, improved R scapular stabilizer strength, and to improve R UE ROM and strength, and to work towards achieving the above stated goals. The pt's rehabilitation may be limited by her insurance limits and currently 6 visits are allowed to start. I recommend if the pt doesn't improve withing the 6 visits, further imaging to rule in/out cervical, shoulder or neck involvement would be appropriate. Physical Therapy Plan Frequency and Duration Frequency of Treatment 2x/Week Plan of Care Start Date 09/06/22 Plan of Care End Date 11/04/22 Therapeutic Interventions Therapeutic Interventions Home Exercise Program,Joint Mobilizations,Manual Therapy, Neuromuscular Re-education, Patient/Caregiver Education, Self-Care/Home Management,Soft Tissue Mobilization,Taping, Therapeutic Activities, Therapeutic Exercises Modalities Cold Pack/Ice Massage,Electric Stimulation,Hot Packs, Traction- Mechanical Next Visit Focus/Plan Next Note Type Treatment Note Next Visit Plan Special Tests (carpal tunnel, Julio C, etc...). Assess for cervical/R UE neural or shoulder involvement (ROM, strength, special tests). Check lateral pinch strength. POC: UE Neural glides, improve mobility, circulation, decrease inflammation/pain. Education: Posture & HEP, Manual therapy, STM, ROM, Strengthening, Modalities (US, Ionto, taping).
--- NOTE | 2022-09-06 16:41 | PT.OPPOC ---
Physical, Occupational & Speech Therapy At [facility] Current Diagnoses Pain in right wrist (09/22/22) Postural kyphosis, site unspecified (09/22/22) Postural lordosis, site unspecified (09/22/22) Pain in right arm (09/22/22) Visit Care Team Role Provider Type Jaye Hurtado DO Attending Provider Physician Family Provider Primary Care Provider Referring Provider Specialty: Medical Address: [address] [place] [address], [address], [place], [address] Email: [email or web address] Plan Of Care PT-OP-T Assessment and Plan Start: 09/02/22 20:37 Freq: Status: Active Protocol: Document 09/06/22 08:03 LRN (Rec: 09/06/22 08:53 LRN [id number]) Physical Therapy Assessment Rehab Potential Rehabilitation Potential Good Evaluation Complexity Number of Personal Factors/Comorbidities 1-2 Number of Body Systems Impaired 4 or More Clinical Presentation at Evaluation Evolving Impairments Impairments Activity Tolerance,Functional Activities,Pain,Posture,ROM, Sensation,Soft Tissue Mobility ,Strength Goals Three Impairment Decreased function of R wrist Short Term Goal (STG) Decrease R UE pain with grabbing objects the size of a jar. STG Duration 10/21/22 Tea Tree Farmer Goal (LTG) Pt able to work 6 hrs using computer using modified techniques and modalities to elimnate soreness at end of the day. LTG Duration 11/04/22 Two Impairment Decreased R senior loan processor strength Impairment (Initial) R Recreation Establishment Manager strength in kgs (3 trials taken): Right: 8, 6, 6; Avg is 6.7 kgs. (Initial) L Recreation Establishment Manager strength in kgs (3 trials taken): Right: 13, 12, 14; Avg is 13 kgs. Short Term Goal (STG) Improve strength to hold wide objects like an apple in R hand without pain. STG Duration 10/21/22 Tea Tree Farmer Goal (LTG) Open new jars with R hand using modified techniques. LTG Duration 11/04/22 One Impairment Lacks appropriates self care HEP. Short Term Goal (STG) Pt will be educated in a self care treatment of edema/pain management and modified gripping techniques to decrease pain with use. STG Duration 10/21/22 Shelter Goal (LTG) Pt will be educated in a self longterm exer program to improve, posture, R UE mobility, strength and function. LTG Duration 11/04/22 Assessment Summary Assessment Pt is a 52 yo female who presents with possible C7 and UE neural tension (radial> medial>ulnar). Pt c/o R lateral elbow pain that radiates up her neck and down to her wrist and hand. Her forearm/wrist/hand pain appears to be in C7 dermatome and radial nerve sensory patterns. Further assessment of the neck and R shoulder will be needed for cervical and shoulder involvement. DTR response is normal bilaterally. Therapy will focus on further neck/shoulder /elbow/wrist involvement, manual therapy, flexibility & strengthening ex's, functional joint movement and functional movement training. The pt will benefit from skilled physical therapy to promote improved posture, improved R scapular stabilizer strength, and to improve R UE ROM and strength, and to work towards achieving the above stated goals. The pt's rehabilitation may be limited by her insurance limits and currently 6 visits are allowed to start. I recommend if the pt doesn't improve withing the 6 visits, further imaging to rule in/out cervical, shoulder or neck involvement would be appropriate. Physical Therapy Plan Frequency and Duration Frequency of Treatment 2x/Week Plan of Care Start Date 09/06/22 Plan of Care End Date 11/04/22 Therapeutic Interventions Therapeutic Interventions Home Exercise Program,Joint Mobilizations,Manual Therapy, Neuromuscular Re-education, Patient/Caregiver Education, Self-Care/Home Management,Soft Tissue Mobilization,Taping, Therapeutic Activities, Therapeutic Exercises Modalities Cold Pack/Ice Massage,Electric Stimulation,Hot Packs, Traction- Mechanical Next Visit Focus/Plan Next Note Type Treatment Note Next Visit Plan Special Tests (carpal tunnel, Julio C, etc...). Assess for cervical/R UE neural or shoulder involvement (ROM, strength, special tests). Check lateral pinch strength. POC: UE Neural glides, improve mobility, circulation, decrease inflammation/pain. Education: Posture & HEP, Manual therapy, STM, ROM, Strengthening, Modalities (US, Ionto, taping). Plan of Care Dates Plan of Care Start Date 09/06/22 Plan of Care End Date 11/04/22 Electronically Signed by: Sandrine Parker, PT 09/06/22 4810 If you are in agreement with this Plan of Care, please return a signed and dated copy. I have reviewed this Plan of Care and certify that the skilled therapy services above are required to meet the patient?s needs. Physician Signature Date Printed Name and Credentials Clinical Instructor Signature Printed Name and Credentials
--- NOTE | 2022-09-08 11:16 | PT.OTN ---
Current Diagnoses Pain in right wrist (09/22/22) Postural kyphosis, site unspecified (09/22/22) Postural lordosis, site unspecified (09/22/22) Pain in right arm (09/22/22) Physical Therapy Treatment Note PT-OP-A Visit Information Start: 09/02/22 20:37 Freq: Status: Active Protocol: Document 09/08/22 09:45 LRN (Rec: 09/08/22 11:16 LRN [id number]) Out-Patient Physical Therapy Visit Information Visit Information Visit Type Treatment Note Visit Start Time 09:46 Visit Stop Time 10:34 Total Visit Minutes 48 Visit Number 2 Evaluation Information Evaluation Date 09/06/22 Precautions Precautions Diabetes type II, depression, neck pain 2019. PT-OP-B Current Condition Start: 09/02/22 20:37 Freq: Status: Active Protocol: Document 09/06/22 08:03 LRN (Rec: 09/06/22 08:53 LRN [id number]) Current Condition History of Current Condition Onset Date November Current Complaints Pain R UE History of Current Condition Pain goes up/down the R arm, starting at lateral elbow. Pt thought it was carpel tunnel. Took time off to have child, then returned to work and then her brother grabbed her R arm and twisted the forearm away from her body; therefore it may have caused the problem . Prior Treatments and Tests No. Future Testing and Treatments Planned Next week nerve conduction test in 9 days. Developmental History Developmental History Has 9 year old son. Had problems with the R arm previously from too much typing and while had similar problem with arm, but not sharp pain like now. Wears compression sleeve over the elbow and a separate one for the wrist. Wears brace at nighttime to keep the R wrist at a good angle. Treatment Goals Patient/Caregiver Goals Pt goals: Improve strength to hold things Decrease pain with grabbing objects the size of a jar. Open new jars using modified techniques. Pt able to work 6 hrs using computer using modified techniques and modalities to elimnate soreness at end of the day. Current Functional Impairments (Reported) Functional Limitations- ADL's Difficulty and pain grabbing and holding things with force (no problems with a cooking or using a knife), and opening jars, working 6hrs or more causes soreness in arm. Functional Limitations- Work/School Returned to work 4 yrs ago after taking time off to have baby. 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 PT-OP-C Subjective Start: 09/02/22 20:37 Freq: Status: Active Protocol: Document 09/08/22 09:45 LRN (Rec: 09/08/22 11:16 LRN [id number]) OP-PT Subjective Patient Comments Patient Comments States she woke with R forearm throbby. Lessening of throb after treatment. PT-OP-H Neuro Start: 09/02/22 20:37 Freq: Status: Active Protocol: Document 09/06/22 08:03 LRN (Rec: 09/06/22 08:53 LRN [id number]) Sensation Evaluation Gross Sensation Gross Sensation Right UE Impaired Sensation Description Tingling Comments Summary Comments Light tingle in the R hand with prolonged standing. Coordination Evaluation Upper Extremity Tests Right Finger to Nose Test R slight low to tip of nose Left Finger to Nose Test Normal Performance Deep Tendon Reflex & Clonus Assessment Deep Tendon Reflex Bilateral Brachioradialis Deep Tendon Reflex 2+ Normal Right Tricep Deep Tendon Reflex 2+ Normal Right Bicep Deep Tendon Reflex 2+ Normal Brachioradialis Deep Tendon Reflex 2+ Normal Tricep Deep Tendon Reflex 2+ Normal Left Bicep Deep Tendon Reflex 2+ Normal PT-OP-J Posture/Palpation/Skin Start: 09/02/22 20:37 Freq: Status: Active Protocol: Document 09/06/22 08:03 LRN (Rec: 09/06/22 08:53 LRN [id number]) Posture Evaluation Position Sitting Head/C-Spine Posture Side Bent Right T-Spine Posture Increased Kyphosis L-Spine Posture Increased Lordosis Scapula Posture (R) Elevated Arm Posture (L) Internally Rotated,(R) Internally Rotated Knee Posture (L) Genu Recurvatum,(R) Genu Recurvatum Palpation Assessment Location Back Palpation Location R paraspinals Palpation Details Atrophy of muscles. R wrist Palpation Location Dorsal region of mid-section of wrist and digits 2-4 Palpation Details Soreness at end of work day. PT-OP-K Range of Motion Start: 09/02/22 20:37 Freq: Status: Active Protocol: Document 09/06/22 08:03 LRN (Rec: 09/06/22 08:53 LRN [id number]) Elbow/Forearm Range of Motion Elbow/Forearm Right Active ROM Testing Position Sitting Supination (degrees) 64 Comments All motions WNL except as indicated above. Painful with supination. Left Active ROM Testing Position Sitting Supination (degrees) 68 Comments All motions WNL Wrist Goniometric Range of Motion Wrist Right Flexion Active (degrees) 70 Extension Active (degrees) 54 Ulnar Deviation Active (degrees) 28 Radial Deviation Active (degrees) 28 Left Wrist ROM WFL Yes Flexion Active (degrees) 70 Extension Active (degrees) 65 Ulnar Deviation Active (degrees) 40 Radial Deviation Active (degrees) 34 PT-OP-L Special Tests Start: 09/02/22 20:37 Freq: Status: Active Protocol: Document 09/08/22 09:45 LRN (Rec: 09/08/22 11:16 LRN [id number]) Special Tests Cervical Spine Special Tests Vertebral Artery Test Results - bilaterally Spurling's Test Test Results + on R side compression Foraminal Compression Test Results + on R side compression Traction Test Results - response Neural Special Tests- Upper Body Tinel Sign Test Results - right Phalen's Test Results - bilaterally Ulnar Nerve Tension Test Results + right Median Nerve Tension Test Results - right Radial Nerve Tension Test Results + right Comments Little more discomfrot in foream. PT-OP-M Strength Start: 09/02/22 20:37 Freq: Status: Active Protocol: Document 09/08/22 09:45 LRN (Rec: 09/08/22 11:16 LRN [id number]) Shoulder Strength Shoulder Manual Muscle Testing Right Internal Rotation 4+ Good+ Comments STrength is 5/5 except as indicated above. Left Internal Rotation 4 Good Comments STrength is 5/5 except as indicated above. Pt had fractured humerus on L side. Elbow/Forearm Strength Elbow and Forearm Manual Muscle Testing Right Flexion (C6) 5 Normal Extension (C7) 5 Normal Pronation 5 Normal Supination 5 Normal Comments Pt shakes with MMT Left Flexion (C6) 5 Normal Extension (C7) 5 Normal Pronation 5 Normal Supination 5 Normal Comments Pt shakes with MMT Hand Hot Knife Cutter/Pinch Strength Hand Strength Right Lateral Pinch (lbs) 14 Comments 3 trials lateral pinch test ( lbs): 14, 14, 14 (Avg lateral pinch for women age 50-54 is 16.7#). Hot Knife Cutter strength avg is 6.7 kgs (Avg sandwich wrapper strength for women age 50-54 is 29.8 kgs). Left Lateral Pinch (lbs) 12 Comments 3 trials lateral pinch test ( lbs): 13, 12, 12 (Avg lateral pinch for women age 50-54 is 16.1#). Hot Knife Cutter strength avg is 13 kgs ( Avg sandwich wrapper strength for women age 50-54 is 13 kgs). PT-OP-Q Treatments Start: 09/02/22 20:37 Freq: Status: Active Protocol: Document 09/08/22 09:45 LRN (Rec: 09/08/22 11:16 LRN [id number]) Therapeutic Exercises Supine Exercises Ulnar n stretch Side right Reps/Minutes 2' Sitting Exercises Shoulder & Elbow Ronn holding Sitting Exercise Name All motions of shoulder and elbow. Side bilateral Reps/Minutes 1-2x each Comments MMT taken Median n glide Sitting Exercise Name slider glide Side right Radial n glide Sitting Exercise Name slider glide Side right Ulnar n slider glide Sitting Exercise Name Ulnar n. tension positional stretch (Owl position) Side right Reps/Minutes 2' Wrist flex/ext stretch Sitting Exercise Name Wrist flex/ext stretch Side bilateral Reps/Minutes 60 SH x 1 Comments No pain/discomfort Manual Therapy Treatment Soft Tissue Mobilization R wrist extensors Body Location R wrist extensors Mobilization Type Strumming Intensity/Depth Moderate Body Position Hooklying Manual Traction Cervical Details Axial and 30 deg's flexed Body Position Supine Reps/Duration 5' Comments No significant change in pain. PT-OP-R Modalities Start: 09/02/22 20:37 Freq: Status: Active Protocol: Document 09/08/22 09:45 LRN (Rec: 09/08/22 11:16 LRN [id number]) Ultrasound Therapy Treatment R wrist extensors at lateral elbow Treatment Duration (minutes) 8 Patient Position Supine Coupling Medium Ultrasound Gel Applicator Size (cm2) 2 Frequency Setting (mHz) 1 Mode Setting Pulsed Duty Cycle 50% Intensity Setting (w/cm2) 1.0 PT-OP-T Assessment and Plan Start: 09/02/22 20:37 Freq: Status: Active Protocol: Document 09/08/22 09:45 LRN (Rec: 09/08/22 11:16 LRN [id number]) Physical Therapy Assessment Goals Three Impairment Decreased function of R wrist Short Term Goal (STG) Decrease R UE pain with grabbing objects the size of a jar. STG Duration 10/21/22 Detention Goal (LTG) Pt able to work 6 hrs using computer using modified techniques and modalities to elimnate soreness at end of the day. LTG Duration 11/04/22 Two Impairment Decreased R sandwich wrapper strength Impairment (Initial) R Hot Knife Cutter strength in kgs (3 trials taken): Right: 8, 6, 6; Avg is 6.7 kgs. (Initial) L Hot Knife Cutter strength in kgs (3 trials taken): Right: 13, 12, 14; Avg is 13 kgs. Short Term Goal (STG) Improve strength to hold wide objects like an apple in R hand without pain. STG Duration 10/21/22 Detention Goal (LTG) Open new jars with R hand using modified techniques. LTG Duration 11/04/22 One Impairment Lacks appropriates self care HEP. Short Term Goal (STG) Pt will be educated in a self care treatment of edema/pain management and modified gripping techniques to decrease pain with use. STG Duration 10/21/22 Corrections Counselor Goal (LTG) Pt will be educated in a self long-term exer program to improve, posture, R UE mobility, strength and function. LTG Duration 11/04/22 Assessment Summary Assessment Lateral pinch test demonstrates weakness in R hand, sandwich wrapper strength dec'd 1/2 of norm for her age group. Physical Therapy Plan Frequency and Duration Frequency of Treatment 2x/Week Plan of Care Start Date 09/06/22 Plan of Care End Date 11/04/22 Next Visit Focus/Plan Next Note Type Treatment Note Next Visit Plan Special Tests (Julio C, lateral epicondylitis,...). Assess for cervical/R UE neural or shoulder involvement (ROM, strength, special tests ). Check lateral pinch strength. POC: UE Neural glides, improve mobility, circulation, decrease inflammation/pain. Education: Posture & HEP, Manual therapy, STM, ROM, Strengthening, Modalities (US, Ionto, taping).
== END ==
PROVIDERS: Family Provider Family Medicine; PCP Family Medicine; Referring Provider Family Medicine; Visit Provider Family Medicine
DX: M25.531 Pain in right wrist (principal)
CPT/HCPCS: 95886; 95909

== ENCOUNTER 2022-11-01 12:30 | Outpatient (RCR) | payer OTHER, SELFPAY ==
--- NOTE | 2022-09-06 16:41 | PT.OPPOC ---
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, site unspecified (09/08/22) Pain in right arm (09/08/22) Visit Care Team Role Provider Type Jaye Hurtado DO Attending Provider Physician Family Provider Primary Care Provider Referring Provider Specialty: Medical Address: [address] [place] [address], [address], [place], [address] Email: [email or web address] Plan Of Care PT-OP-T Assessment and Plan Start: 09/15/22 09:13 Freq: Status: Active Protocol: Document 09/06/22 08:03 LRN (Rec: 09/15/22 11:52 LRN [id number]) Physical Therapy Assessment Rehab Potential Rehabilitation Potential Good Evaluation Complexity Number of Personal Factors/Comorbidities 1-2 Number of Body Systems Impaired 4 or More Clinical Presentation at Evaluation Evolving Impairments Impairments Activity Tolerance,Functional Activities,Pain,Posture,ROM, Sensation,Soft Tissue Mobility ,Strength Goals Three Impairment Decreased function of R wrist Short Term Goal (STG) Decrease R UE pain with grabbing objects the size of a jar. STG Duration 10/21/22 Senior Care Goal (LTG) Pt able to work 6 hrs using computer using modified techniques and modalities to elimnate soreness at end of the day. LTG Duration 11/04/22 Two Impairment Decreased R chaplain strength Impairment (Initial) R Cotton Breeder strength in kgs (3 trials taken): Right: 8, 6, 6; Avg is 6.7 kgs. (Initial) L Cotton Breeder strength in kgs (3 trials taken): Right: 13, 12, 14; Avg is 13 kgs. Short Term Goal (STG) Improve strength to hold wide objects like an apple in R hand without pain. STG Duration 10/21/22 Senior Care Goal (LTG) Open new jars with R hand using modified techniques. LTG Duration 11/04/22 One Impairment Lacks appropriates self care HEP. Short Term Goal (STG) Pt will be educated in a self care treatment of edema/pain management and modified gripping techniques to decrease pain with use. STG Duration 10/21/22 Senior Care Goal (LTG) Pt will be educated in a self assisted exer program to improve, posture, R UE mobility, strength and function. LTG Duration 11/04/22 Assessment Summary Assessment Pt is a 52 yo female who presents with possible C7 and UE neural tension (radial> medial>ulnar). Pt c/o R lateral elbow pain that radiates up her neck and down to her wrist and hand. Her forearm/wrist/hand pain appears to be in C7 dermatome and radial nerve sensory patterns. Further assessment of the neck and R shoulder will be needed for cervical and shoulder involvement. DTR response is normal bilaterally. Therapy will focus on further neck/shoulder /elbow/wrist involvement, manual therapy, flexibility & strengthening ex's, functional joint movement and functional movement training. The pt will benefit from skilled physical therapy to promote improved posture, improved R scapular stabilizer strength, and to improve R UE ROM and strength, and to work towards achieving the above stated goals. The pt's rehabilitation may be limited by her insurance limits and currently 6 visits are allowed to start. I recommend if the pt doesn't improve withing the 6 visits, further imaging to rule in/out cervical, shoulder or neck involvement would be appropriate. Physical Therapy Plan Frequency and Duration Frequency of Treatment 2x/Week Plan of Care Start Date 09/06/22 Plan of Care End Date 11/04/22 Therapeutic Interventions Therapeutic Interventions Home Exercise Program,Joint Mobilizations,Manual Therapy, Neuromuscular Re-education, Patient/Caregiver Education, Self-Care/Home Management, Taping,Therapeutic Activities, Therapeutic Exercises Modalities Cold Pack/Ice Massage,Electric Stimulation,Hot Packs, Traction- Mechanical Next Visit Focus/Plan Next Note Type Treatment Note Next Visit Plan Special Tests (carpal tunnel, Julio C, etc...). Assess for cervical/R UE neural or shoulder involvement (ROM, strength, special tests). Check lateral pinch strength. POC: UE Neural glides, improve mobility, circulation, decrease inflammation/pain. Education: Posture & HEP, Manual therapy, STM, ROM, Strengthening, Modalities (US, Ionto, taping). Plan of Care Dates Plan of Care Start Date 09/06/22 Plan of Care End Date 11/04/22 Electronically Signed by: Sandrine Parker, PT 09/15/22 1210 If you are in agreement with this Plan of Care, please return a signed and dated copy. I have reviewed this Plan of Care and certify that the skilled therapy services above are required to meet the patient?s needs. Physician Signature Date Printed Name and Credentials Clinical Instructor Signature Printed Name and Credentials
--- NOTE | 2022-09-06 16:41 | PT.OPPOC ---
Addendum entered and electronically signed by Sandrine Parker, PT 09/15/22 12:01: resending POC Original Note: Physical, Occupational & Speech Therapy At [facility] Current Diagnoses Pain in right elbow (09/08/22) Visit Care Team Role Provider Type Jaye Hurtado DO Attending Provider Physician Family Provider Primary Care Provider Referring Provider Specialty: Medical Address: [address] [place] [address], [address], [place], [address] Email: [email or web address] Plan Of Care PT-OP-T Assessment and Plan Start: 09/15/22 09:13 Freq: Status: Active Protocol: Document 09/06/22 08:03 LRN (Rec: 09/15/22 11:52 LRN [id number]) Physical Therapy Assessment Rehab Potential Rehabilitation Potential Good Evaluation Complexity Number of Personal Factors/Comorbidities 1-2 Number of Body Systems Impaired 4 or More Clinical Presentation at Evaluation Evolving Impairments Impairments Activity Tolerance,Functional Activities,Pain,Posture,ROM, Sensation,Soft Tissue Mobility ,Strength Goals Three Impairment Decreased function of R wrist Short Term Goal (STG) Decrease R UE pain with grabbing objects the size of a jar. STG Duration 10/21/22 Skilled Nursing Goal (LTG) Pt able to work 6 hrs using computer using modified techniques and modalities to elimnate soreness at end of the day. 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 (Initial) L [employer]illar Tractor Operator strength in kgs (3 trials taken): Right: 13, 12, 14; Avg is 13 kgs. Short Term Goal (STG) Improve strength to hold wide objects like an apple in R hand without pain. STG Duration 10/21/22 Skilled Nursing Goal (LTG) Open new jars with R hand using modified techniques. LTG Duration 11/04/22 One Impairment Lacks appropriates self care HEP. Short Term Goal (STG) Pt will be educated in a self care treatment of edema/pain management and modified gripping techniques to decrease pain with use. STG Duration 10/21/22 Skilled Nursing Goal (LTG) Pt will be educated in a self snf exer program to improve, posture, R UE mobility, strength and function. LTG Duration 11/04/22 Assessment Summary Assessment Pt is a 52 yo female who presents with possible C7 and UE neural tension (radial> medial>ulnar). Pt c/o R lateral elbow pain that radiates up her neck and down to her wrist and hand. Her forearm/wrist/hand pain appears to be in C7 dermatome and radial nerve sensory patterns. Further assessment of the neck and R shoulder will be needed for cervical and shoulder involvement. DTR response is normal bilaterally. Therapy will focus on further neck/shoulder /elbow/wrist involvement, manual therapy, flexibility & strengthening ex's, functional joint movement and functional movement training. The pt will benefit from skilled physical therapy to promote improved posture, improved R scapular stabilizer strength, and to improve R UE ROM and strength, and to work towards achieving the above stated goals. The pt's rehabilitation may be limited by her insurance limits and currently 6 visits are allowed to start. I recommend if the pt doesn't improve withing the 6 visits, further imaging to rule in/out cervical, shoulder or neck involvement would be appropriate. Physical Therapy Plan Frequency and Duration Frequency of Treatment 2x/Week Plan of Care Start Date 09/06/22 Plan of Care End Date 11/04/22 Therapeutic Interventions Therapeutic Interventions Home Exercise Program,Joint Mobilizations,Manual Therapy, Neuromuscular Re-education, Patient/Caregiver Education, Self-Care/Home Management, Taping,Therapeutic Activities, Therapeutic Exercises Modalities Cold Pack/Ice Massage,Electric Stimulation,Hot Packs, Traction- Mechanical Next Visit Focus/Plan Next Note Type Treatment Note Next Visit Plan Special Tests (carpal tunnel, Julio C, etc...). Assess for cervical/R UE neural or shoulder involvement (ROM, strength, special tests). Check lateral pinch strength. POC: UE Neural glides, improve mobility, circulation, decrease inflammation/pain. Education: Posture & HEP, Manual therapy, STM, ROM, Strengthening, Modalities (US, Ionto, taping). Plan of Care Dates Plan of Care Start Date 09/06/22 Plan of Care End Date 11/04/22 Electronically Signed by: Sandrine Parker, PT 09/15/22 1200 If you are in agreement with this Plan of Care, please return a signed and dated copy. I have reviewed this Plan of Care and certify that the skilled therapy services above are required to meet the patient?s needs. Physician Signature Date Printed Name and Credentials Clinical Instructor Signature Printed Name and Credentials
--- NOTE | 2022-09-06 16:41 | PT.OIE ---
Current Diagnoses Pain in right elbow (09/08/22) Past Medical History Bipolar disorder Chronic neck pain (~1999) HTN (hypertension) Hyperlipidemia Type 2 diabetes mellitus without complication (07/2019) Vaping nicotine dependence, tobacco product (04/2021) Past Surgical History (Last Reviewed 05/06/22 @ 13:51 by Kirsten Banda PA-C) Status post appendectomy Status post delivery Visit Care Team Role Provider Type Jaye Hurtado DO Attending Provider Physician Family Provider Primary Care Provider Referring Provider Specialty: Medical Address: [address] [place] [address], [address], [address] Email: [email or web address] Physical Therapy Initial Evaluation PT-OP-A Visit Information Start: 09/15/22 09:13 Freq: Status: Active Protocol: Document 09/06/22 08:03 LRN (Rec: 09/15/22 09:31 LRN [id number]) Out-Patient Physical Therapy Visit Information Visit Information Visit Type Initial Evaluation Visit Start Time 08:03 Visit Stop Time 08:52 Total Visit Minutes 49 Visit Number 1 Evaluation Information Evaluation Date 09/06/22 Precautions Precautions Diabetes type II, depression, neck pain 2019. PT-OP-B Current Condition Start: 09/15/22 09:13 Freq: Status: Active Protocol: Document 09/06/22 08:03 LRN (Rec: 09/15/22 09:31 LRN [id number]) Current Condition History of Current Condition Onset Date Nov 2019 Current Complaints Pain R UE History of Current Condition Pain goes up/down the R arm, starting at lateral elbow. Pt thought it was carpel tunnel. Took time off to have child, then returned to work and then her brother grabbed her R arm and twisted the forearm away from her body; therefore it may have caused the problem . Prior Treatments and Tests No Future Testing and Treatments Planned Next week nerve conduction test in 9 days. Developmental History Developmental History Has 9 year old son. Had problems with the R arm previously from too much typing and while had similar problem with arm, but not sharp pain like now. Wears compression sleeve over the elbow and a separate one for the wrist. Wears brace at nighttime to keep the R wrist at a good angle. Treatment Goals Patient/Caregiver Goals Pt goals: Improve strength to hold things Decrease pain with grabbing objects the size of a jar. Open new jars using modified techniques. Pt able to work 6 hrs using computer using modified techniques and modalities to elimnate soreness at end of the day. Current Functional Impairments (Reported) Functional Limitations- ADL's Difficulty and pain grabbing and holding things with force (no problems with a cooking or using a knife), and opening jars, working 6hrs or more causes soreness in arm. Functional Limitations- Mobility/Gait Returned to work 4 yrs ago after taking time off to have baby. 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 Functional Limitations- Recreation/ Difficulty and pain grabbing Hobbies and holding things with force (no problems with a cooking or using a knife), and opening jars, working 6hrs or more causes soreness in arm. Functional Limitations- Other Returned to work 4 yrs ago after taking time off to have baby. 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 PT-OP-C Subjective Start: 09/15/22 09:13 Freq: Status: Active Protocol: Document 09/06/22 08:03 LRN (Rec: 09/15/22 09:31 LRN [id number]) Patient Questionnaires Quick Dash- Upper Extremity Quick Dash UE Score 34 Quick Dash UE Impairment 20 to 39% Impaired (Score 20- 39) OP-PT Pain Assessment Pain Assessment Grid Paper Pain Assessment Grid Completed Yes Location R wrist Pain Location Details Lateral elbow to middle finger and up lateral side of arm, neck, under ear Intensity 9 Description Sharp,Shooting Other Pain Aggravating Factors Grabbing weighted object and after work. Suboccipital Pain Location Details Bilateral supoccipital Intensity 6 Scale Used Numeric (0 - 10) Description Aching Description- Other After work PT-OP-H Neuro Start: 09/15/22 09:13 Freq: Status: Active Protocol: Document 09/06/22 08:03 LRN (Rec: 09/15/22 09:31 LRN [id number]) Sensation Evaluation Gross Sensation Gross Sensation Right UE Impaired Sensation Description Tingling Coordination Evaluation Upper Extremity Tests Left Finger to Nose Test Normal Performance Right Finger to Nose Test R slight low to tip of nose Deep Tendon Reflex & Clonus Assessment Deep Tendon Reflex Left Bicep Deep Tendon Reflex 2+ Normal Tricep Deep Tendon Reflex 2+ Normal Brachioradialis Deep Tendon Reflex 2+ Normal Right Bicep Deep Tendon Reflex 2+ Normal Right Tricep Deep Tendon Reflex 2+ Normal Bilateral Brachioradialis Deep Tendon Reflex 2+ Normal PT-OP-J Posture/Palpation/Skin Start: 09/15/22 09:13 Freq: Status: Active Protocol: Document 09/06/22 08:03 LRN (Rec: 09/15/22 09:31 LRN [id number]) Posture Evaluation Position Sitting Head/C-Spine Posture Side Bent Right T-Spine Posture Increased Kyphosis L-Spine Posture Increased Lordosis Scapula Posture (R) Elevated Arm Posture (L) Internally Rotated,(R) Internally Rotated Knee Posture (L) Genu Recurvatum,(R) Genu Recurvatum Palpation Assessment Location R lateral elbow Palpation Location Lateral epicondyle of humerus Palpation Findings Tenderness Palpation Details Causes mild tingling in the forearm. R wrist Palpation Location Dorsal region of mid-section of wrist and digits 2-4 Palpation Details Soreness at end of work day. Back Palpation Location R Paraspinals Palpation Details Atrophy of muscles PT-OP-K Range of Motion Start: 09/15/22 09:13 Freq: Status: Active Protocol: Document 09/06/22 08:03 LRN (Rec: 09/15/22 11:55 LRN [id number]) Elbow/Forearm Range of Motion Elbow/Forearm Left Active ROM Testing Position Sitting Supination (degrees) 68 Comments All motions WNL Right Active ROM Testing Position Sitting Supination (degrees) 64 Comments All motions WNL except as indicated above. Painful with supination. Wrist Goniometric Range of Motion Wrist Left Wrist ROM WFL Yes Flexion Active (degrees) 70 Extension Active (degrees) 65 Ulnar Deviation Active (degrees) 40 Radial Deviation Active (degrees) 34 Right Flexion Active (degrees) 70 Extension Active (degrees) 54 Ulnar Deviation Active (degrees) 28 Radial Deviation Active (degrees) 28 PT-OP-M Strength Start: 09/15/22 09:13 Freq: Status: Active Protocol: Document 09/06/22 08:03 LRN (Rec: 09/15/22 09:31 LRN [id number]) Wrist Strength Wrist Manual Muscle Testing Right Flexion (C7) 3+ Fair+ Extension (C6) 5 Normal Ulnar Deviation 5 Normal Radial Deviation 3 Fair Left Comments Strength is 5/5 PT-OP-Q Treatments Start: 09/15/22 09:13 Freq: Status: Active Protocol: Document 09/06/22 08:03 LRN (Rec: 09/15/22 11:52 LRN [id number]) Self-Care/Home Management Treatment Education Patient Education Home Exercise Program Other Education Discussed results of evaluation, goals, and plan of care (POC). Pt agreeable to goals and POC. Activities Self-Care/Home Management Activities I/S pt in self R wrist stretch into extension, UD/RD, using other hand to assist stretch. PT-OP-T Assessment and Plan Start: 09/15/22 09:13 Freq: Status: Active Protocol: Document 09/06/22 08:03 LRN (Rec: 09/15/22 11:52 LRN [id number]) Physical Therapy Assessment Rehab Potential Rehabilitation Potential Good Evaluation Complexity Number of Personal Factors/Comorbidities 1-2 Number of Body Systems Impaired 4 or More Clinical Presentation at Evaluation Evolving Impairments Impairments Activity Tolerance,Functional Activities,Pain,Posture,ROM, Sensation,Soft Tissue Mobility ,Strength Goals Three Impairment Decreased function of R wrist Short Term Goal (STG) Decrease R UE pain with grabbing objects the size of a jar. STG Duration 10/21/22 Jail Goal (LTG) Pt able to work 6 hrs using computer using modified techniques and modalities to elimnate soreness at end of the day. LTG Duration 11/04/22 Two Impairment Decreased R knowledge analyst strength Impairment (Initial) R Game Bird Farmer strength in kgs (3 trials taken): Right: 8, 6, 6; Avg is 6.7 kgs. (Initial) L Game Bird Farmer strength in kgs (3 trials taken): Right: 13, 12, 14; Avg is 13 kgs. Short Term Goal (STG) Improve strength to hold wide objects like an apple in R hand without pain. STG Duration 10/21/22 Jail Goal (LTG) Open new jars with R hand using modified techniques. LTG Duration 11/04/22 One Impairment Lacks appropriates self care HEP. Short Term Goal (STG) Pt will be educated in a self care treatment of edema/pain management and modified gripping techniques to decrease pain with use. STG Duration 10/21/22 [employer] Goal (LTG) Pt will be educated in a self long term exer program to improve, posture, R UE mobility, strength and function. LTG Duration 11/04/22 Assessment Summary Assessment Pt is a 52 yo female who presents with possible C7 and UE neural tension (radial> medial>ulnar). Pt c/o R lateral elbow pain that radiates up her neck and down to her wrist and hand. Her forearm/wrist/hand pain appears to be in C7 dermatome and radial nerve sensory patterns. Further assessment of the neck and R shoulder will be needed for cervical and shoulder involvement. DTR response is normal bilaterally. Therapy will focus on further neck/shoulder /elbow/wrist involvement, manual therapy, flexibility & strengthening ex's, functional joint movement and functional movement training. The pt will benefit from skilled physical therapy to promote improved posture, improved R scapular stabilizer strength, and to improve R UE ROM and strength, and to work towards achieving the above stated goals. The pt's rehabilitation may be limited by her insurance limits and currently 6 visits are allowed to start. I recommend if the pt doesn't improve withing the 6 visits, further imaging to rule in/out cervical, shoulder or neck involvement would be appropriate. Physical Therapy Plan Frequency and Duration Frequency of Treatment 2x/Week Plan of Care Start Date 09/06/22 Plan of Care End Date 11/04/22 Therapeutic Interventions Therapeutic Interventions Home Exercise Program,Joint Mobilizations,Manual Therapy, Neuromuscular Re-education, Patient/Caregiver Education, Self-Care/Home Management, Taping,Therapeutic Activities, Therapeutic Exercises Modalities Cold Pack/Ice Massage,Electric Stimulation,Hot Packs, Traction- Mechanical Next Visit Focus/Plan Next Note Type Treatment Note Next Visit Plan Special Tests (carpal tunnel, Julio C, etc...). Assess for cervical/R UE neural or shoulder involvement (ROM, strength, special tests). Check lateral pinch strength. POC: UE Neural glides, improve mobility, circulation, decrease inflammation/pain. Education: Posture & HEP, Manual therapy, STM, ROM, Strengthening, Modalities (US, Ionto, taping).
--- NOTE | 2022-09-08 11:16 | PT.OTN ---
Current Diagnoses Pain in right elbow (09/08/22) Pain in right wrist (09/08/22) Postural kyphosis, site unspecified (09/08/22) Postural lordosis, site unspecified (09/08/22) Pain in right arm (09/08/22) Physical Therapy Treatment Note PT-OP-A Visit Information Start: 09/15/22 09:13 Freq: Status: Active Protocol: Document 09/08/22 09:45 LRN (Rec: 09/15/22 12:25 LRN [id number]) Out-Patient Physical Therapy Visit Information Visit Information Visit Type Treatment Note Visit Start Time 09:46 Visit Stop Time 10:34 Total Visit Minutes 48 Visit Number 2 Evaluation Information Evaluation Date 09/06/22 Precautions Precautions Diabetes type II, depression, neck pain 2019. PT-OP-B Current Condition Start: 09/15/22 09:13 Freq: Status: Active Protocol: Document 09/06/22 08:03 LRN (Rec: 09/15/22 09:31 LRN [id number]) Current Condition History of Current Condition Onset Date Nov 2019 Current Complaints Pain R UE History of Current Condition Pain goes up/down the R arm, starting at lateral elbow. Pt thought it was carpel tunnel. Took time off to have child, then returned to work and then her brother grabbed her R arm and twisted the forearm away from her body; therefore it may have caused the problem . Prior Treatments and Tests No Future Testing and Treatments Planned Next week nerve conduction test in 9 days. Developmental History Developmental History Has 9 year old son. Had problems with the R arm previously from too much typing and while had similar problem with arm, but not sharp pain like now. Wears compression sleeve over the elbow and a separate one for the wrist. Wears brace at nighttime to keep the R wrist at a good angle. Treatment Goals Patient/Caregiver Goals Pt goals: Improve strength to hold things Decrease pain with grabbing objects the size of a jar. Open new jars using modified techniques. Pt able to work 6 hrs using computer using modified techniques and modalities to elimnate soreness at end of the day. Current Functional Impairments (Reported) Functional Limitations- ADL's Difficulty and pain grabbing and holding things with force (no problems with a cooking or using a knife), and opening jars, working 6hrs or more causes soreness in arm. Functional Limitations- Mobility/Gait Returned to work 4 yrs ago after taking time off to have baby. 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 Functional Limitations- Recreation/ Difficulty and pain grabbing Hobbies and holding things with force (no problems with a cooking or using a knife), and opening jars, working 6hrs or more causes soreness in arm. Functional Limitations- Other Returned to work 4 yrs ago after taking time off to have baby. 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 PT-OP-C Subjective Start: 09/15/22 09:13 Freq: Status: Active Protocol: Document 09/08/22 09:45 LRN (Rec: 09/15/22 12:25 LRN [id number]) OP-PT Subjective Patient Comments Patient Comments States she woke with R forearm throbby. Lessening of throb after treatment. PT-OP-H Neuro Start: 09/15/22 09:13 Freq: Status: Active Protocol: Document 09/06/22 08:03 LRN (Rec: 09/15/22 09:31 LRN [id number]) Sensation Evaluation Gross Sensation Gross Sensation Right UE Impaired Sensation Description Tingling Coordination Evaluation Upper Extremity Tests Left Finger to Nose Test Normal Performance Right Finger to Nose Test R slight low to tip of nose Deep Tendon Reflex & Clonus Assessment Deep Tendon Reflex Left Bicep Deep Tendon Reflex 2+ Normal Tricep Deep Tendon Reflex 2+ Normal Brachioradialis Deep Tendon Reflex 2+ Normal Right Bicep Deep Tendon Reflex 2+ Normal Right Tricep Deep Tendon Reflex 2+ Normal Bilateral Brachioradialis Deep Tendon Reflex 2+ Normal PT-OP-J Posture/Palpation/Skin Start: 09/15/22 09:13 Freq: Status: Active Protocol: Document 09/06/22 08:03 LRN (Rec: 09/15/22 09:31 LRN [id number]) Posture Evaluation Position Sitting Head/C-Spine Posture Side Bent Right T-Spine Posture Increased Kyphosis L-Spine Posture Increased Lordosis Scapula Posture (R) Elevated Arm Posture (L) Internally Rotated,(R) Internally Rotated Knee Posture (L) Genu Recurvatum,(R) Genu Recurvatum Palpation Assessment Location R lateral elbow Palpation Location Lateral epicondyle of humerus Palpation Findings Tenderness Palpation Details Causes mild tingling in the forearm. R wrist Palpation Location Dorsal region of mid-section of wrist and digits 2-4 Palpation Details Soreness at end of work day. Back Palpation Location R Paraspinals Palpation Details Atrophy of muscles PT-OP-K Range of Motion Start: 09/15/22 09:13 Freq: Status: Active Protocol: Document 09/06/22 08:03 LRN (Rec: 09/15/22 11:55 LRN [id number]) Elbow/Forearm Range of Motion Elbow/Forearm Left Active ROM Testing Position Sitting Supination (degrees) 68 Comments All motions WNL Right Active ROM Testing Position Sitting Supination (degrees) 64 Comments All motions WNL except as indicated above. Painful with supination. Wrist Goniometric Range of Motion Wrist Left Wrist ROM WFL Yes Flexion Active (degrees) 70 Extension Active (degrees) 65 Ulnar Deviation Active (degrees) 40 Radial Deviation Active (degrees) 34 Right Flexion Active (degrees) 70 Extension Active (degrees) 54 Ulnar Deviation Active (degrees) 28 Radial Deviation Active (degrees) 28 PT-OP-L Special Tests Start: 09/15/22 09:13 Freq: Status: Active Protocol: Document 09/08/22 09:45 LRN (Rec: 09/15/22 12:25 LRN [id number]) Special Tests Cervical Spine Special Tests Traction Test Results - response Foraminal Compression Test Results + on R side compression Spurling's Test Test Results + on R side compression Vertebral Artery Test Results - bilaterally Neural Special Tests- Upper Body Radial Nerve Tension Test Results + right Comments Little more discomfrot in foream. Median Nerve Tension Test Results - right Ulnar Nerve Tension Test Results + right Phalen's Test Results - bilaterally Tinel Sign Test Results - right PT-OP-M Strength Start: 09/15/22 09:13 Freq: Status: Active Protocol: Document 09/08/22 09:45 LRN (Rec: 09/15/22 12:25 LRN [id number]) Shoulder Strength Shoulder Manual Muscle Testing Left Internal Rotation 4 Good Comments STrength is 5/5 except as indicated above. Pt had fractured humerus on L side. Right Internal Rotation 4+ Good+ Comments STrength is 5/5 except as indicated above. Elbow/Forearm Strength Elbow and Forearm Manual Muscle Testing Left Flexion (C6) 5 Normal Extension (C7) 5 Normal Pronation 5 Normal Supination 5 Normal Comments Pt shakes with MMT Right Flexion (C6) 5 Normal Extension (C7) 5 Normal Pronation 5 Normal Supination 5 Normal Comments Pt shakes with MMT5 Hand Sewer Cleaner/Pinch Strength Hand Strength Left Lateral Pinch (lbs) 12 Comments 3 trials lateral pinch test ( lbs): 13, 12, 12 (Avg lateral pinch for women age 50-54 is 16.1#). Sewer Cleaner strength avg is 13 kgs ( Avg personal development educator strength for women age 50-54 is 13 kgs). Right Lateral Pinch (lbs) 14 Comments 3 trials lateral pinch test ( lbs): 14, 14, 14 (Avg lateral pinch for women age 50-54 is 16.7#). Sewer Cleaner strength avg is 6.7 kgs (Avg personal development educator strength for women age 50-54 is 29.8 kgs). PT-OP-Q Treatments Start: 09/15/22 09:13 Freq: Status: Active Protocol: Document 09/08/22 09:45 LRN (Rec: 09/15/22 12:25 LRN [id number]) Therapeutic Exercises Supine Exercises Ulnar n stretch Side right Reps/Minutes 2' Sitting Exercises Wrist flex/ext stretch Sitting Exercise Name Wrist flex/ext stretch Side bilateral Reps/Minutes 60 SH x 1 Comments No pain/discomfort Ulnar n slider glide Sitting Exercise Name Ulnar n. tension positional stretch (Owl position) Side right Reps/Minutes 2' Radial n glide Sitting Exercise Name slider glide Side right Median n glide Sitting Exercise Name slider glide Side right Shoulder & Elbow Ronn holding Sitting Exercise Name All motions of shoulder and elbow. Side bilateral Reps/Minutes 1-2x each Comments MMT taken Manual Therapy Treatment Soft Tissue Mobilization R wrist extensors Body Location R wrist extensors Mobilization Type Strumming Intensity/Depth Moderate Body Position Hooklying Manual Traction Cervical Details Axial and 30 deg's flexed Body Position Supine Reps/Duration 5' Comments No significant change in pain. PT-OP-R Modalities Start: 09/15/22 09:13 Freq: Status: Active Protocol: Document 09/08/22 09:45 LRN (Rec: 09/15/22 12:25 LRN [id number]) Ultrasound Therapy Treatment R wrist extensors at lateral elbow Treatment Duration (minutes) 8 Patient Position Supine Coupling Medium Ultrasound Gel Applicator Size (cm2) 2 Frequency Setting (mHz) 1 Mode Setting Pulsed Duty Cycle 50% Intensity Setting (w/cm2) 1.0 PT-OP-T Assessment and Plan Start: 09/15/22 09:13 Freq: Status: Active Protocol: Document 09/08/22 09:45 LRN (Rec: 09/15/22 12:25 LRN [id number]) Physical Therapy Assessment Goals Three Impairment Decreased function of R wrist Short Term Goal (STG) Decrease R UE pain with grabbing objects the size of a jar. STG Duration 10/21/22 Prison Goal (LTG) Pt able to work 6 hrs using computer using modified techniques and modalities to elimnate soreness at end of the day. LTG Duration 11/04/22 Two Impairment Decreased R personal development educator strength Impairment (Initial) R Sewer Cleaner strength in kgs (3 trials taken): Right: 8, 6, 6; Avg is 6.7 kgs. (Initial) L Sewer Cleaner strength in kgs (3 trials taken): Right: 13, 12, 14; Avg is 13 kgs. Short Term Goal (STG) Improve strength to hold wide objects like an apple in R hand without pain. STG Duration 10/21/22 Marine Equipment Engineer Goal (LTG) Open new jars with R hand using modified techniques. LTG Duration 11/04/22 One Impairment Lacks appropriates self care HEP. Short Term Goal (STG) Pt will be educated in a self care treatment of edema/pain management and modified gripping techniques to decrease pain with use. STG Duration 10/21/22 Marine Equipment Engineer Goal (LTG) Pt will be educated in a self assisted exer program to improve, posture, R UE mobility, strength and function. LTG Duration 11/04/22 Assessment Summary Assessment Lateral pinch test demonstrates weakness in R hand, personal development educator strength dec'd 1/2 of norm for her age group. Physical Therapy Plan Frequency and Duration Frequency of Treatment 2x/Week Plan of Care Start Date 09/06/22 Plan of Care End Date 11/04/22 Next Visit Focus/Plan Next Note Type Treatment Note Next Visit Plan Special Tests (Julio C, lateral epicondylitis,...). Assess for cervical/R UE neural or shoulder involvement (ROM, strength, special tests ). Check lateral pinch strength. POC: UE Neural glides, improve mobility, circulation, decrease inflammation/pain. Education: Posture & HEP, Manual therapy, STM, ROM, Strengthening, Modalities (US, Ionto, taping).
--- NOTE | 2022-09-15 16:49 | PT.OTN ---
Current Diagnoses Pain in right elbow (09/15/22) Pain in right wrist (09/15/22) Postural kyphosis, site unspecified (09/15/22) Postural lordosis, site unspecified (09/15/22) Pain in right arm (09/15/22) Physical Therapy Treatment Note PT-OP-A Visit Information Start: 09/15/22 09:13 Freq: Status: Active Protocol: Document 09/15/22 14:13 LRN (Rec: 09/15/22 15:07 LRN [id number]) Out-Patient Physical Therapy Visit Information Visit Information Visit Type Treatment Note Visit Start Time 14:13 Visit Stop Time 14:53 Total Visit Minutes 40 Visit Number 3/ Evaluation Information Evaluation Date 09/06/22 Precautions Precautions Diabetes type II, depression, neck pain 2019. PT-OP-B Current Condition Start: 09/15/22 09:13 Freq: Status: Active Protocol: Document 09/06/22 08:03 LRN (Rec: 09/15/22 09:31 LRN [id number]) Current Condition History of Current Condition Onset Date Nov 2019 Current Complaints Pain R UE History of Current Condition Pain goes up/down the R arm, starting at lateral elbow. Pt thought it was carpel tunnel. Took time off to have child, then returned to work and then her brother grabbed her R arm and twisted the forearm away from her body; therefore it may have caused the problem . Prior Treatments and Tests No Future Testing and Treatments Planned Next week nerve conduction test in 9 days. Developmental History Developmental History Has 9 year old son. Had problems with the R arm previously from too much typing and while had similar problem with arm, but not sharp pain like now. Wears compression sleeve over the elbow and a separate one for the wrist. Wears brace at nighttime to keep the R wrist at a good angle. Treatment Goals Patient/Caregiver Goals Pt goals: Improve strength to hold things Decrease pain with grabbing objects the size of a jar. Open new jars using modified techniques. Pt able to work 6 hrs using computer using modified techniques and modalities to elimnate soreness at end of the day. Current Functional Impairments (Reported) Functional Limitations- ADL's Difficulty and pain grabbing and holding things with force (no problems with a cooking or using a knife), and opening jars, working 6hrs or more causes soreness in arm. Functional Limitations- Mobility/Gait Returned to work 4 yrs ago after taking time off to have baby. 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 Functional Limitations- Recreation/ Difficulty and pain grabbing Hobbies and holding things with force (no problems with a cooking or using a knife), and opening jars, working 6hrs or more causes soreness in arm. Functional Limitations- Other Returned to work 4 yrs ago after taking time off to have baby. 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 PT-OP-C Subjective Start: 09/15/22 09:13 Freq: Status: Active Protocol: Document 09/15/22 14:13 LRN (Rec: 09/15/22 15:07 LRN [id number]) OP-PT Subjective Patient Comments Patient Comments No numbness or tingling in R arm today. Symptoms are the same, a little pain, sometimes . PT-OP-H Neuro Start: 09/15/22 09:13 Freq: Status: Active Protocol: Document 09/06/22 08:03 LRN (Rec: 09/15/22 09:31 LRN [id number]) Sensation Evaluation Gross Sensation Gross Sensation Right UE Impaired Sensation Description Tingling Coordination Evaluation Upper Extremity Tests Left Finger to Nose Test Normal Performance Right Finger to Nose Test R slight low to tip of nose Deep Tendon Reflex & Clonus Assessment Deep Tendon Reflex Left Bicep Deep Tendon Reflex 2+ Normal Tricep Deep Tendon Reflex 2+ Normal Brachioradialis Deep Tendon Reflex 2+ Normal Right Bicep Deep Tendon Reflex 2+ Normal Right Tricep Deep Tendon Reflex 2+ Normal Bilateral Brachioradialis Deep Tendon Reflex 2+ Normal PT-OP-J Posture/Palpation/Skin Start: 09/15/22 09:13 Freq: Status: Active Protocol: Document 09/06/22 08:03 LRN (Rec: 09/15/22 09:31 LRN [id number]) Posture Evaluation Position Sitting Head/C-Spine Posture Side Bent Right T-Spine Posture Increased Kyphosis L-Spine Posture Increased Lordosis Scapula Posture (R) Elevated Arm Posture (L) Internally Rotated,(R) Internally Rotated Knee Posture (L) Genu Recurvatum,(R) Genu Recurvatum Palpation Assessment Location R lateral elbow Palpation Location Lateral epicondyle of humerus Palpation Findings Tenderness Palpation Details Causes mild tingling in the forearm. R wrist Palpation Location Dorsal region of mid-section of wrist and digits 2-4 Palpation Details Soreness at end of work day. Back Palpation Location R Paraspinals Palpation Details Atrophy of muscles PT-OP-K Range of Motion Start: 09/15/22 09:13 Freq: Status: Active Protocol: Document 09/06/22 08:03 LRN (Rec: 09/15/22 11:55 LRN [id number]) Elbow/Forearm Range of Motion Elbow/Forearm Left Active ROM Testing Position Sitting Supination (degrees) 68 Comments All motions WNL Right Active ROM Testing Position Sitting Supination (degrees) 64 Comments All motions WNL except as indicated above. Painful with supination. Wrist Goniometric Range of Motion Wrist Left Wrist ROM WFL Yes Flexion Active (degrees) 70 Extension Active (degrees) 65 Ulnar Deviation Active (degrees) 40 Radial Deviation Active (degrees) 34 Right Flexion Active (degrees) 70 Extension Active (degrees) 54 Ulnar Deviation Active (degrees) 28 Radial Deviation Active (degrees) 28 PT-OP-L Special Tests Start: 09/15/22 09:13 Freq: Status: Active Protocol: Document 09/15/22 16:23 LRN (Rec: 09/15/22 16:26 LRN [id number]) Special Tests Cervical Spine Special Tests Traction Test Results - response Foraminal Compression Test Results - response Spurling's Test Test Results + bilaterally Wrist/Hand Special Tests Julio C's Test Results + right Neural Special Tests- Upper Body Radial Nerve Tension Test Results + right Comments Discomfrot in foream, wrist, fingers. Median Nerve Tension Test Results + right Comments Discomfrot in foream. Ulnar Nerve Tension Test Results + right Comments Discomfrot in foream. PT-OP-M Strength Start: 09/15/22 09:13 Freq: Status: Active Protocol: Document 09/08/22 09:45 LRN (Rec: 09/15/22 12:25 LRN [id number]) Shoulder Strength Shoulder Manual Muscle Testing Left Internal Rotation 4 Good Comments STrength is 5/5 except as indicated above. Pt had fractured humerus on L side. Right Internal Rotation 4+ Good+ Comments STrength is 5/5 except as indicated above. Elbow/Forearm Strength Elbow and Forearm Manual Muscle Testing Left Flexion (C6) 5 Normal Extension (C7) 5 Normal Pronation 5 Normal Supination 5 Normal Comments Pt shakes with MMT Right Flexion (C6) 5 Normal Extension (C7) 5 Normal Pronation 5 Normal Supination 5 Normal Comments Pt shakes with MMT5 Hand Radio Aerial Installer/Pinch Strength Hand Strength Left Lateral Pinch (lbs) 12 Comments 3 trials lateral pinch test ( lbs): 13, 12, 12 (Avg lateral pinch for women age 50-54 is 16.1#). Radio Aerial Installer strength avg is 13 kgs ( Avg principal security architect strength for women age 50-54 is 13 kgs). Right Lateral Pinch (lbs) 14 Comments 3 trials lateral pinch test ( lbs): 14, 14, 14 (Avg lateral pinch for women age 50-54 is 16.7#). Radio Aerial Installer strength avg is 6.7 kgs (Avg principal security architect strength for women age 50-54 is 29.8 kgs). PT-OP-Q Treatments Start: 09/15/22 09:13 Freq: Status: Active Protocol: Document 09/15/22 14:13 LRN (Rec: 09/15/22 15:07 LRN [id number]) Therapeutic Exercises Supine Exercises Radial n stretch Supine Exercise Name Radial n stretch Side right Reps/Minutes 2x Comments + tension Median n stretch Supine Exercise Name Slider>Tension>Slider Side right Reps/Minutes 6' Comments + tension. Extra time to determine max tolerated stretch Ulnar n stretch Supine Exercise Name Ulnar n stretch Side right Reps/Minutes 2x Comments - tension Sitting Exercises Ulnar n slider glide Sitting Exercise Name Ulnar n. slider and tensioner glides (Butterfly) Side right Reps/Minutes 2' Radial n glide Sitting Exercise Name slider > tensioner > slider glide Side bilateral Reps/Minutes 7' Comments Cuing no pain on R side w/ stretch Median n glide Sitting Exercise Name slider > tensioner > slider glide Side bilateral Reps/Minutes 7' Comments Cuing no pain on R side w/ stretch Manual Therapy Treatment Soft Tissue Mobilization R wrist extensors Body Location R UE Mobilization Type Strumming Intensity/Depth Moderate Body Position Hooklying Manual Traction Cervical Details Axial Body Position Supine Reps/Duration 2' Comments No significant change in pain. Self-Care/Home Management Treatment Education Patient Education Body Mechanics,Home Exercise Program,Posture Other Education Discussed and educated pt in proper sitting/standing posture, and proper posturing for ADLs. Activities Self-Care/Home Management Activities Issued & reviewed HEP: Ulnar, Median and Radial n glides. PT-OP-R Modalities Start: 09/15/22 09:13 Freq: Status: Active Protocol: Document 09/08/22 09:45 LRN (Rec: 09/15/22 12:25 LRN [id number]) Ultrasound Therapy Treatment R wrist extensors at lateral elbow Treatment Duration (minutes) 8 Patient Position Supine Coupling Medium Ultrasound Gel Applicator Size (cm2) 2 Frequency Setting (mHz) 1 Mode Setting Pulsed Duty Cycle 50% Intensity Setting (w/cm2) 1.0 PT-OP-T Assessment and Plan Start: 09/15/22 09:13 Freq: Status: Active Protocol: Document 09/15/22 14:13 LRN (Rec: 09/15/22 15:07 LRN [id number]) Physical Therapy Assessment Goals Three Impairment Decreased function of R wrist Short Term Goal (STG) Decrease R UE pain with grabbing objects the size of a jar. STG Duration 10/21/22 Shelter Goal (LTG) Pt able to work 6 hrs using computer using modified techniques and modalities to elimnate soreness at end of the day. LTG Duration 11/04/22 Two Impairment Decreased R principal security architect strength Impairment (Initial) R Radio Aerial Installer strength in kgs (3 trials taken): Right: 8, 6, 6; Avg is 6.7 kgs. (Initial) L Radio Aerial Installer strength in kgs (3 trials taken): Right: 13, 12, 14; Avg is 13 kgs. Short Term Goal (STG) Improve strength to hold wide objects like an apple in R hand without pain. STG Duration 10/21/22 Shelter Goal (LTG) Open new jars with R hand using modified techniques. LTG Duration 11/04/22 One Impairment Lacks appropriates self care HEP. Short Term Goal (STG) Pt will be educated in a self care treatment of edema/pain management and modified gripping techniques to decrease pain with use. STG Duration 10/21/22 Shelter Goal (LTG) Pt will be educated in a self retirement exer program to improve, posture, R UE mobility, strength and function. 09/15/22: Educated in proper sitting and standing posture. HEP: Ulnar, Median and Radial n glides. LTG Duration 11/04/22 progressed 09/15/22: Assessment Summary Assessment Pt presents with possible C7 and definitely UE neural tension (radial>medial>ulnar) and possible DeQuervain's tenosynovitis due to a + R Julio C Test. Pt had a negative cervical compression/ traction test, but + Spurlings Test (bilaterally) in supine. Pt tolerated UE nerve glides well and appears to have a good understanding of staying within limits to avoid pain with ex's. Pr receptive to postural/ADL training education. Poor sitting posture at her computer (50% of the work day) may be a big contributing factor in the pt' s onset of RUE radicular symptoms. Physical Therapy Plan Frequency and Duration Frequency of Treatment 2x/Week Plan of Care Start Date 09/06/22 Plan of Care End Date 11/04/22 Next Visit Focus/Plan Next Note Type Treatment Note Next Visit Plan Focus: Pt being placed on HEP w/in 6 visits. Assess response to STM & nerve glides. Assess further for R elbow involvement (elbow: ?lateral epicondylitis). Assess ROM, strength for cervical or shoulder involvement. POC: UE Neural glides, improve UE: mobility, circulation, decrease inflammation/pain. Education: HEP, Manual therapy, STM, ROM, Strengthening, Modalities (US, Ionto, taping).
--- NOTE | 2022-09-23 18:28 | PT.OTN ---
Current Diagnoses Pain in right elbow (09/23/22) Pain in right wrist (09/23/22) Postural kyphosis, site unspecified (09/23/22) Postural lordosis, site unspecified (09/23/22) Pain in right arm (09/23/22) Physical Therapy Treatment Note PT-OP-A Visit Information Start: 09/15/22 09:13 Freq: Status: Active Protocol: Document 09/23/22 14:05 LRN (Rec: 09/23/22 14:52 LRN [id number]) Out-Patient Physical Therapy Visit Information Visit Information Visit Type Treatment Note Visit Start Time 14:05 Visit Stop Time 14:45 Total Visit Minutes 40 Visit Number 3/ Evaluation Information Evaluation Date 09/06/22 Precautions Precautions Diabetes type II, depression, neck pain 2019. PT-OP-B Current Condition Start: 09/15/22 09:13 Freq: Status: Active Protocol: Document 09/06/22 08:03 LRN (Rec: 09/15/22 09:31 LRN [id number]) Current Condition History of Current Condition Onset Date Nov 2019 Current Complaints Pain R UE History of Current Condition Pain goes up/down the R arm, starting at lateral elbow. Pt thought it was carpel tunnel. Took time off to have child, then returned to work and then her brother grabbed her R arm and twisted the forearm away from her body; therefore it may have caused the problem . Prior Treatments and Tests No Future Testing and Treatments Planned Next week nerve conduction test in 9 days. Developmental History Developmental History Has 9 year old son. Had problems with the R arm previously from too much typing and while had similar problem with arm, but not sharp pain like now. Wears compression sleeve over the elbow and a separate one for the wrist. Wears brace at nighttime to keep the R wrist at a good angle. Treatment Goals Patient/Caregiver Goals Pt goals: Improve strength to hold things Decrease pain with grabbing objects the size of a jar. Open new jars using modified techniques. Pt able to work 6 hrs using computer using modified techniques and modalities to elimnate soreness at end of the day. Current Functional Impairments (Reported) Functional Limitations- ADL's Difficulty and pain grabbing and holding things with force (no problems with a cooking or using a knife), and opening jars, working 6hrs or more causes soreness in arm. Functional Limitations- Mobility/Gait Returned to work 4 yrs ago after taking time off to have baby. 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 Functional Limitations- Recreation/ Difficulty and pain grabbing Hobbies and holding things with force (no problems with a cooking or using a knife), and opening jars, working 6hrs or more causes soreness in arm. Functional Limitations- Other Returned to work 4 yrs ago after taking time off to have baby. 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 PT-OP-C Subjective Start: 09/15/22 09:13 Freq: Status: Active Protocol: Document 09/23/22 14:05 LRN (Rec: 09/23/22 14:52 LRN [id number]) OP-PT Subjective Patient Comments Patient Comments Feeling a little better, don't have as much pain in the R arm. No numbness or tingling and hasn't had it. Had nerve test yesterday and found no nerve damage. PT-OP-H Neuro Start: 09/15/22 09:13 Freq: Status: Active Protocol: Document 09/06/22 08:03 LRN (Rec: 09/15/22 09:31 LRN [id number]) Sensation Evaluation Gross Sensation Gross Sensation Right UE Impaired Sensation Description Tingling Coordination Evaluation Upper Extremity Tests Left Finger to Nose Test Normal Performance Right Finger to Nose Test R slight low to tip of nose Deep Tendon Reflex & Clonus Assessment Deep Tendon Reflex Left Bicep Deep Tendon Reflex 2+ Normal Tricep Deep Tendon Reflex 2+ Normal Brachioradialis Deep Tendon Reflex 2+ Normal Right Bicep Deep Tendon Reflex 2+ Normal Right Tricep Deep Tendon Reflex 2+ Normal Bilateral Brachioradialis Deep Tendon Reflex 2+ Normal PT-OP-J Posture/Palpation/Skin Start: 09/15/22 09:13 Freq: Status: Active Protocol: Document 09/06/22 08:03 LRN (Rec: 09/15/22 09:31 LRN [id number]) Posture Evaluation Position Sitting Head/C-Spine Posture Side Bent Right T-Spine Posture Increased Kyphosis L-Spine Posture Increased Lordosis Scapula Posture (R) Elevated Arm Posture (L) Internally Rotated,(R) Internally Rotated Knee Posture (L) Genu Recurvatum,(R) Genu Recurvatum Palpation Assessment Location R lateral elbow Palpation Location Lateral epicondyle of humerus Palpation Findings Tenderness Palpation Details Causes mild tingling in the forearm. R wrist Palpation Location Dorsal region of mid-section of wrist and digits 2-4 Palpation Details Soreness at end of work day. Back Palpation Location R Paraspinals Palpation Details Atrophy of muscles PT-OP-K Range of Motion Start: 09/15/22 09:13 Freq: Status: Active Protocol: Document 09/06/22 08:03 LRN (Rec: 09/15/22 11:55 [facility] [id number]) Elbow/Forearm Range of Motion Elbow/Forearm Left Active ROM Testing Position Sitting Supination (degrees) 68 Comments All motions WNL Right Active ROM Testing Position Sitting Supination (degrees) 64 Comments All motions WNL except as indicated above. Painful with supination. Wrist Goniometric Range of Motion Wrist Left Wrist ROM WFL Yes Flexion Active (degrees) 70 Extension Active (degrees) 65 Ulnar Deviation Active (degrees) 40 Radial Deviation Active (degrees) 34 Right Flexion Active (degrees) 70 Extension Active (degrees) 54 Ulnar Deviation Active (degrees) 28 Radial Deviation Active (degrees) 28 PT-OP-L Special Tests Start: 09/15/22 09:13 Freq: Status: Active Protocol: Document 09/15/22 16:23 LRN (Rec: 09/15/22 16:26 N [id number]) Special Tests Cervical Spine Special Tests Traction Test Results - response Foraminal Compression Test Results - response Spurling's Test Test Results + bilaterally Wrist/Hand Special Tests Julio C's Test Results + right Neural Special Tests- Upper Body Radial Nerve Tension Test Results + right Comments Discomfrot in foream, wrist, fingers. Median Nerve Tension Test Results + right Comments Discomfrot in foream. Ulnar Nerve Tension Test Results + right Comments Discomfrot in foream. PT-OP-M Strength Start: 09/15/22 09:13 Freq: Status: Active Protocol: Document 09/08/22 09:45 LRN (Rec: 09/15/22 12:25 LRN [id number]) Shoulder Strength Shoulder Manual Muscle Testing Left Internal Rotation 4 Good Comments STrength is 5/5 except as indicated above. Pt had fractured humerus on L side. Right Internal Rotation 4+ Good+ Comments STrength is 5/5 except as indicated above. Elbow/Forearm Strength Elbow and Forearm Manual Muscle Testing Left Flexion (C6) 5 Normal Extension (C7) 5 Normal Pronation 5 Normal Supination 5 Normal Comments Pt shakes with MMT Right Flexion (C6) 5 Normal Extension (C7) 5 Normal Pronation 5 Normal Supination 5 Normal Comments Pt shakes with MMT5 Hand Engraver Copperplate/Pinch Strength Hand Strength Left Lateral Pinch (lbs) 12 Comments 3 trials lateral pinch test ( lbs): 13, 12, 12 (Avg lateral pinch for women age 50-54 is 16.1#). Engraver Copperplate strength avg is 13 kgs ( Avg bearing machine operator strength for women age 50-54 is 13 kgs). Right Lateral Pinch (lbs) 14 Comments 3 trials lateral pinch test ( lbs): 14, 14, 14 (Avg lateral pinch for women age 50-54 is 16.7#). Engraver Copperplate strength avg is 6.7 kgs (Avg bearing machine operator strength for women age 50-54 is 29.8 kgs). PT-OP-Q Treatments Start: 09/15/22 09:13 Freq: Status: Active Protocol: Document 09/23/22 14:05 LRN (Rec: 09/23/22 14:52 [facility] [id number]) Therapeutic Exercises Supine Exercises Pec stretch Supine Exercise Name Supine on towel roll down spine for pec stretch and mob of upper T/S Reps/Minutes 3' Comments I/S pt to do as HEP. Neck Elongation Supine Exercise Name NEck Elongation Reps/Minutes 10 SH x 10 Sitting Exercises Wrist flex/ext stretch Sitting Exercise Name Stretch to wrist extensors Side right Comments No stretch or pain at lateral elbow felt Ulnar n slider glide Sitting Exercise Name Ulnar n. slider and tensioner glides (Butterfly) Side right Reps/Minutes 10x each Comments slider-SB towards, Tensioner- SB away Radial n glide Sitting Exercise Name slider > tensioner > slider glide Side bilateral Reps/Minutes 10x each head position Comments Cuing no pain on R side w/ stretch Median n glide Sitting Exercise Name slider > tensioner > slider glide: Side bilateral Reps/Minutes 10x each head position Comments Cuing no pain on R side w/ stretch Manual Therapy Treatment Soft Tissue Mobilization R wrist extensors Body Location R wrist extensors Mobilization Type Strumming Intensity/Depth Moderate Body Position Hooklying Comments No change in sensation and no pain. Joint Mobilizations Upper T/S Joint T2-T8 Direction PA, Rot Grade II Body Position Prone Reps/Duration 10 Manual Traction Cervical Details Intermittent tx targeting C7- C8 Body Position Supine Reps/Duration 13' Comments No significant change in pain. PT-OP-R Modalities Start: 09/15/22 09:13 Freq: Status: Active Protocol: Document 09/08/22 09:45 LRN (Rec: 09/15/22 12:25 LRN [id number]) Ultrasound Therapy Treatment R wrist extensors at lateral elbow Treatment Duration (minutes) 8 Patient Position Supine Coupling Medium Ultrasound Gel Applicator Size (cm2) 2 Frequency Setting (mHz) 1 Mode Setting Pulsed Duty Cycle 50% Intensity Setting (w/cm2) 1.0 PT-OP-T Assessment and Plan Start: 09/15/22 09:13 Freq: Status: Active Protocol: Document 09/23/22 14:05 LRN (Rec: 09/23/22 14:52 LRN [id number]) Physical Therapy Assessment Goals Three Impairment Decreased function of R wrist Short Term Goal (STG) Decrease R UE pain with grabbing objects the size of a jar. STG Duration 10/21/22 Skilled Nursing Goal (LTG) Pt able to work 6 hrs using computer using modified techniques and modalities to elimnate soreness at end of the day. 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 (Initial) L Engraver Copperplate strength in kgs (3 trials taken): Right: 13, 12, 14; Avg is 13 kgs. Short Term Goal (STG) Improve strength to hold wide objects like an apple in R hand without pain. STG Duration 10/21/22 Skilled Nursing Goal (LTG) Open new jars with R hand using modified techniques. LTG Duration 11/04/22 One Impairment Lacks appropriates self care HEP. Short Term Goal (STG) Pt will be educated in a self care treatment of edema/pain management and modified gripping techniques to decrease pain with use. STG Duration 10/21/22 Skilled Nursing Goal (LTG) Pt will be educated in a self prison exer program to improve, posture, R UE mobility, strength and function. 09/15/22: Educated in proper sitting and standing posture. HEP: Ulnar, Median and Radial n glides. LTG Duration 11/04/22 progressed 09/15/22: Assessment Summary Assessment Pt not familiar with UE nerve glides; therefore review needed. + response to manual cervical traction with R lateral elbow pain decreased from 3/10 to 1/10. Pt R lateral elbow pain not significantly altered by pressure/deep STM. Pt has no pain with MMT of R wrist extensors; therefore negative for lateral epicondylitis. Physical Therapy Plan Frequency and Duration Frequency of Treatment 2x/Week Plan of Care Start Date 09/06/22 Plan of Care End Date 11/04/22 Next Visit Focus/Plan Next Note Type Treatment Note Next Visit Plan Focus: Pt being placed on HEP w/in 6 visits. Assess response to STM & nerve glides. Assess ROM, strength for cervical or shoulder involvement. POC: UE Neural glides, improve UE: mobility, circulation, decrease inflammation/pain. Strengthen R elbow for stability with good cervical alignment. Education: HEP, Manual therapy, STM, ROM, Strengthening, Modalities (US, Ionto, taping).
--- NOTE | 2022-10-06 17:18 | PT.OTN ---
Current Diagnoses Pain in right elbow (10/06/22) Pain in right wrist (10/06/22) Postural kyphosis, site unspecified (10/06/22) Postural lordosis, site unspecified (10/06/22) Pain in right arm (10/06/22) Physical Therapy Treatment Note PT-OP-A Visit Information Start: 09/15/22 09:13 Freq: Status: Active Protocol: Document 10/06/22 08:01 LRN (Rec: 10/06/22 08:48 LRN [id number]) Out-Patient Physical Therapy Visit Information Visit Information Visit Type Treatment Note Visit Start Time 08:01 Visit Stop Time 08:46 Total Visit Minutes 45 Visit Number 4/6 Evaluation Information Evaluation Date 09/06/22 Precautions Precautions Diabetes type II, depression, neck pain 2019. PT-OP-B Current Condition Start: 09/15/22 09:13 Freq: Status: Active Protocol: Document 09/06/22 08:03 LRN (Rec: 09/15/22 09:31 LRN [id number]) Current Condition History of Current Condition Onset Date Nov 2019 Current Complaints Pain R UE History of Current Condition Pain goes up/down the R arm, starting at lateral elbow. Pt thought it was carpel tunnel. Took time off to have child, then returned to work and then her brother grabbed her R arm and twisted the forearm away from her body; therefore it may have caused the problem . Prior Treatments and Tests No Future Testing and Treatments Planned Next week nerve conduction test in 9 days. Developmental History Developmental History Has 9 year old son. Had problems with the R arm previously from too much typing and while had similar problem with arm, but not sharp pain like now. Wears compression sleeve over the elbow and a separate one for the wrist. Wears brace at nighttime to keep the R wrist at a good angle. Treatment Goals Patient/Caregiver Goals Pt goals: Improve strength to hold things Decrease pain with grabbing objects the size of a jar. Open new jars using modified techniques. Pt able to work 6 hrs using computer using modified techniques and modalities to elimnate soreness at end of the day. Current Functional Impairments (Reported) Functional Limitations- ADL's Difficulty and pain grabbing and holding things with force (no problems with a cooking or using a knife), and opening jars, working 6hrs or more causes soreness in arm. Functional Limitations- Mobility/Gait Returned to work 4 yrs ago after taking time off to have baby. 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 Functional Limitations- Recreation/ Difficulty and pain grabbing Hobbies and holding things with force (no problems with a cooking or using a knife), and opening jars, working 6hrs or more causes soreness in arm. Functional Limitations- Other Returned to work 4 yrs ago after taking time off to have baby. 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 PT-OP-C Subjective Start: 09/15/22 09:13 Freq: Status: Active Protocol: Document 10/06/22 08:01 LRN (Rec: 10/06/22 08:48 LRN [id number]) OP-PT Subjective Patient Comments Patient Comments Did yardwork Monday and had strange pain from neck and up/ down the R arm and was doing pruning. Iced and tried lying on towel roll and skipped ex' s, and the next day was mostly gone. PT-OP-H Neuro Start: 09/15/22 09:13 Freq: Status: Active Protocol: Document 09/06/22 08:03 LRN (Rec: 09/15/22 09:31 LRN [id number]) Sensation Evaluation Gross Sensation Gross Sensation Right UE Impaired Sensation Description Tingling Coordination Evaluation Upper Extremity Tests Left Finger to Nose Test Normal Performance Right Finger to Nose Test R slight low to tip of nose Deep Tendon Reflex & Clonus Assessment Deep Tendon Reflex Left Bicep Deep Tendon Reflex 2+ Normal Tricep Deep Tendon Reflex 2+ Normal Brachioradialis Deep Tendon Reflex 2+ Normal Right Bicep Deep Tendon Reflex 2+ Normal Right Tricep Deep Tendon Reflex 2+ Normal Bilateral Brachioradialis Deep Tendon Reflex 2+ Normal PT-OP-J Posture/Palpation/Skin Start: 09/15/22 09:13 Freq: Status: Active Protocol: Document 09/06/22 08:03 LRN (Rec: 09/15/22 09:31 LRN [id number]) Posture Evaluation Position Sitting Head/C-Spine Posture Side Bent Right T-Spine Posture Increased Kyphosis L-Spine Posture Increased Lordosis Scapula Posture (R) Elevated Arm Posture (L) Internally Rotated,(R) Internally Rotated Knee Posture (L) Genu Recurvatum,(R) Genu Recurvatum Palpation Assessment Location R lateral elbow Palpation Location Lateral epicondyle of humerus Palpation Findings Tenderness Palpation Details Causes mild tingling in the forearm. R wrist Palpation Location Dorsal region of mid-section of wrist and digits 2-4 Palpation Details Soreness at end of work day. Back Palpation Location R Paraspinals Palpation Details Atrophy of muscles PT-OP-K Range of Motion Start: 09/15/22 09:13 Freq: Status: Active Protocol: Document 09/06/22 08:03 LRN (Rec: 09/15/22 11:55 [facility] [id number]) Elbow/Forearm Range of Motion Elbow/Forearm Left Active ROM Testing Position Sitting Supination (degrees) 68 Comments All motions WNL Right Active ROM Testing Position Sitting Supination (degrees) 64 Comments All motions WNL except as indicated above. Painful with supination. Wrist Goniometric Range of Motion Wrist Left Wrist ROM WFL Yes Flexion Active (degrees) 70 Extension Active (degrees) 65 Ulnar Deviation Active (degrees) 40 Radial Deviation Active (degrees) 34 Right Flexion Active (degrees) 70 Extension Active (degrees) 54 Ulnar Deviation Active (degrees) 28 Radial Deviation Active (degrees) 28 PT-OP-L Special Tests Start: 09/15/22 09:13 Freq: Status: Active Protocol: Document 09/15/22 16:23 LRN (Rec: 09/15/22 16:26 LRN [id number]) Special Tests Cervical Spine Special Tests Traction Test Results - response Foraminal Compression Test Results - response Spurling's Test Test Results + bilaterally Wrist/Hand Special Tests Julio C's Test Results + right Neural Special Tests- Upper Body Radial Nerve Tension Test Results + right Comments Discomfrot in foream, wrist, fingers. Median Nerve Tension Test Results + right Comments Discomfrot in foream. Ulnar Nerve Tension Test Results + right Comments Discomfrot in foream. PT-OP-M Strength Start: 09/15/22 09:13 Freq: Status: Active Protocol: Document 09/08/22 09:45 LRN (Rec: 09/15/22 12:25 [facility] [id number]) Shoulder Strength Shoulder Manual Muscle Testing Left Internal Rotation 4 Good Comments STrength is 5/5 except as indicated above. Pt had fractured humerus on L side. Right Internal Rotation 4+ Good+ Comments STrength is 5/5 except as indicated above. Elbow/Forearm Strength Elbow and Forearm Manual Muscle Testing Left Flexion (C6) 5 Normal Extension (C7) 5 Normal Pronation 5 Normal Supination 5 Normal Comments Pt shakes with MMT Right Flexion (C6) 5 Normal Extension (C7) 5 Normal Pronation 5 Normal Supination 5 Normal Comments Pt shakes with MMT5 Hand Cleaning Machine Operator/Pinch Strength Hand Strength Left Lateral Pinch (lbs) 12 Comments 3 trials lateral pinch test ( lbs): 13, 12, 12 (Avg lateral pinch for women age 50-54 is 16.1#). Cleaning Machine Operator strength avg is 13 kgs ( Avg embalmer assistant strength for women age 50-54 is 13 kgs). Right Lateral Pinch (lbs) 14 Comments 3 trials lateral pinch test ( lbs): 14, 14, 14 (Avg lateral pinch for women age 50-54 is 16.7#). Cleaning Machine Operator strength avg is 6.7 kgs (Avg embalmer assistant strength for women age 50-54 is 29.8 kgs). PT-OP-Q Treatments Start: 09/15/22 09:13 Freq: Status: Active Protocol: Document 10/06/22 08:01 [facility] (Rec: 10/06/22 08:48 [facility] [id number]) Therapeutic Exercises Supine Exercises Pec stretch Supine Exercise Name Supine pec stretch on small roll, Ulnar butterfly & median glides Reps/Minutes 3' Comments I/S pt to do as HEP. Neck Elongation Supine Exercise Name NEck Elongation Reps/Minutes 10 SH x 10 Sitting Exercises Wrist Ext/Flex Sitting Exercise Name Elbow by side, lift to ceiling , palm up/palm down Side right Reps/Minutes 15x each Comments No R elbow pain. Elbow flex Sitting Exercise Name Elbow flex strengthening w/ palm up and down Side bilateral Reps/Minutes 10x each Comments No pain at R elbow Wrist flex/ext stretch Sitting Exercise Name Stretch to wrist extensors Side right Comments No stretch or pain at lateral elbow felt Ulnar n slider glide Sitting Exercise Name Ulnar n. slider and tensioner glides (Butterfly) Side right Reps/Minutes 5x each Comments slider-SB towards, Tensioner- SB away Radial n glide Sitting Exercise Name slider > tensioner > slider glide Side bilateral Reps/Minutes 5x each head position Comments Cuing no pain on R side w/ stretch Median n glide Sitting Exercise Name slider > tensioner > slider glide: Side bilateral Reps/Minutes 5x each head position Comments Cuing no pain on R side w/ stretch Standing Exercises Shoulder IR Standing Exercise Name Should IR strengthening Side bilateral Equipment Used Lev 2 TB ([place]) Reps/Minutes 15x Comments pt c/o R forearm pain with R ex w/too much resistance. Self-Care/Home Management Treatment Education Patient Education Home Exercise Program Activities Self-Care/Home Management Activities I/S HEP: L Wrist ext and elbow flexion strengthening, and issued Lev 2 TBand (orange ). PT-OP-R Modalities Start: 09/15/22 09:13 Freq: Status: Active Protocol: Document 10/06/22 08:01 LRBrooke (Rec: 10/06/22 17:06 [facility] [id number]) Ultrasound Therapy Treatment R wrist extensors at lateral elbow Treatment Duration (minutes) 8 Patient Position Supine Coupling Medium Ultrasound Gel Applicator Size (cm2) 2 Frequency Setting (mHz) 1 Mode Setting Pulsed Duty Cycle 50% Intensity Setting (w/cm2) 1.0 PT-OP-T Assessment and Plan Start: 09/15/22 09:13 Freq: Status: Active Protocol: Document 10/06/22 08:01 LRN (Rec: 10/06/22 08:48 [facility] [id number]) Physical Therapy Assessment Goals Three Impairment Decreased function of R wrist Short Term Goal (STG) Decrease R UE pain with grabbing objects the size of a jar. STG Duration 10/21/22 Residential Goal (LTG) Pt able to work 6 hrs using computer using modified techniques and modalities to elimnate soreness at end of the day. LTG Duration 11/04/22 Two Impairment Decreased R embalmer assistant strength Impairment (Initial) R Cleaning Machine Operator strength in kgs (3 trials taken): Right: 8, 6, 6; Avg is 6.7 kgs. (Initial) L Cleaning Machine Operator strength in kgs (3 trials taken): Right: 13, 12, 14; Avg is 13 kgs. Short Term Goal (STG) Improve strength to hold wide objects like an apple in R hand without pain. STG Duration 10/21/22 Metal Base Blocker Goal (LTG) Open new jars with R hand using modified techniques. LTG Duration 11/04/22 One Impairment Lacks appropriates self care HEP. Short Term Goal (STG) Pt will be educated in a self care treatment of edema/pain management and modified gripping techniques to decrease pain with use. STG Duration 10/21/22 Metal Base Blocker Goal (LTG) Pt will be educated in a self usp exer program to improve, posture, R UE mobility, strength and function. 09/15/22: Educated in proper sitting and standing posture. HEP: Ulnar, Median and Radial n glides. LTG Duration 11/04/22 progressed 09/15/22: Assessment Summary Assessment + response to STM, nerve glides, and US. Pt has had no numbness/tingling, but R UE pain during pruning. No R elbow pain with ex, only R forearm pain with shoulder IR strengthening. Pt had tenderness at lateral epicondyle to palpation that decreased greatly with ultrasound. Physical Therapy Plan Frequency and Duration Frequency of Treatment 2x/Week Plan of Care Start Date 09/06/22 Plan of Care End Date 11/04/22 Next Visit Focus/Plan Next Note Type Treatment Note Next Visit Plan Focus: Pt being placed on HEP w/in 2 more visits. Try K- taping for inflammation at lateral epicondyle or Ionto and add T/S JMT (manual and open book). Cervical and shoulder: Assess ROM, strength. Strengthen R elbow for stability with good cervical alignment. Education: HEP, Manual therapy T/S, ROM, Strengthening, Modalities ( Ionto, taping). POC: UE Neural glides, improve UE mobility, circulation, decrease inflammation/pain.
--- NOTE | 2022-10-13 18:26 | PT.OTN ---
Current Diagnoses Pain in right elbow (10/13/22) Pain in right wrist (10/13/22) Postural kyphosis, site unspecified (10/13/22) Postural lordosis, site unspecified (10/13/22) Pain in right arm (10/13/22) Physical Therapy Treatment Note PT-OP-A Visit Information Start: 09/15/22 09:13 Freq: Status: Active Protocol: Document 10/13/22 12:38 LRN (Rec: 10/13/22 13:26 LRN [id number]) Out-Patient Physical Therapy Visit Information Visit Information Visit Type Progress Note Visit Start Time 12:38 Visit Stop Time 13:24 Total Visit Minutes 46 Visit Number 5/6 Evaluation Information Evaluation Date 09/06/22 Precautions Precautions Diabetes type II, depression, neck pain 2019. Hx of L humeral head fracture. PT-OP-B Current Condition Start: 09/15/22 09:13 Freq: Status: Active Protocol: Document 09/06/22 08:03 LRN (Rec: 09/15/22 09:31 LRN [id number]) Current Condition History of Current Condition Onset Date Nov 2019 Current Complaints Pain R UE History of Current Condition Pain goes up/down the R arm, starting at lateral elbow. Pt thought it was carpel tunnel. Took time off to have child, then returned to work and then her brother grabbed her R arm and twisted the forearm away from her body; therefore it may have caused the problem . Prior Treatments and Tests No Future Testing and Treatments Planned Next week nerve conduction test in 9 days. Developmental History Developmental History Has 9 year old son. Had problems with the R arm previously from too much typing and while had similar problem with arm, but not sharp pain like now. Wears compression sleeve over the elbow and a separate one for the wrist. Wears brace at nighttime to keep the R wrist at a good angle. Treatment Goals Patient/Caregiver Goals Pt goals: Improve strength to hold things Decrease pain with grabbing objects the size of a jar. Open new jars using modified techniques. Pt able to work 6 hrs using computer using modified techniques and modalities to elimnate soreness at end of the day. Current Functional Impairments (Reported) Functional Limitations- ADL's Difficulty and pain grabbing and holding things with force (no problems with a cooking or using a knife), and opening jars, working 6hrs or more causes soreness in arm. Functional Limitations- Mobility/Gait Returned to work 4 yrs ago after taking time off to have baby. 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 Functional Limitations- Recreation/ Difficulty and pain grabbing Hobbies and holding things with force (no problems with a cooking or using a knife), and opening jars, working 6hrs or more causes soreness in arm. Functional Limitations- Other Returned to work 4 yrs ago after taking time off to have baby. 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 PT-OP-C Subjective Start: 09/15/22 09:13 Freq: Status: Active Protocol: Document 10/13/22 12:38 LRN (Rec: 10/13/22 13:26 LRN [id number]) OP-PT Subjective Patient Comments Patient Comments Pain in R wrist extensors only today. States pain has not been as bad. No longer has brachial pain. Past week jammed elbow arm causing R arm pain, but currently having only neck and elbow/forearm pain. No brachium or wrist/ hand pain/numbness/tingling. Patient Questionnaires Neck Disability Index NDI Score 16 Neck Disability Index Impairment 20 to 39% Impaired (Score 10- 19) Quick Dash- Upper Extremity Quick Dash UE Score 31.81 Quick Dash UE Impairment 20 to 39% Impaired (Score 20- 39) OP-PT Pain Assessment Pain Assessment Grid Paper Pain Assessment Grid Completed Yes Location R lateral elbow/forearm Pain Location Details R lateral elbow/forearm Intensity 3 Scale Used Numeric (0 - 10) Description Sharp,Stabbing Description- Other Sometimes radiates down to middle finger, constant low pain. Frequency Constant R lateral brachium Pain Location Details R lateral brachium Intensity 3 Scale Used Numeric (0 - 10) Description Aching,Dull Description- Other Currently no pain. Frequency Intermittent R wrist Intensity 0 Suboccipital Pain Location Details Bilateral supoccipital Intensity 6 Scale Used Numeric (0 - 10) Description Radiating,Shooting,Stabbing Description- Other Radiates down the arm Frequency Constant PT-OP-H Neuro Start: 09/15/22 09:13 Freq: Status: Active Protocol: Document 09/06/22 08:03 LRN (Rec: 09/15/22 09:31 LRN [id number]) Sensation Evaluation Gross Sensation Gross Sensation Right UE Impaired Sensation Description Tingling Coordination Evaluation Upper Extremity Tests Left Finger to Nose Test Normal Performance Right Finger to Nose Test R slight low to tip of nose Deep Tendon Reflex & Clonus Assessment Deep Tendon Reflex Left Bicep Deep Tendon Reflex 2+ Normal Tricep Deep Tendon Reflex 2+ Normal Brachioradialis Deep Tendon Reflex 2+ Normal Right Bicep Deep Tendon Reflex 2+ Normal Right Tricep Deep Tendon Reflex 2+ Normal Bilateral Brachioradialis Deep Tendon Reflex 2+ Normal PT-OP-J Posture/Palpation/Skin Start: 09/15/22 09:13 Freq: Status: Active Protocol: Document 09/06/22 08:03 LRN (Rec: 09/15/22 09:31 LRN [id number]) Posture Evaluation Position Sitting Head/C-Spine Posture Side Bent Right T-Spine Posture Increased Kyphosis L-Spine Posture Increased Lordosis Scapula Posture (R) Elevated Arm Posture (L) Internally Rotated,(R) Internally Rotated Knee Posture (L) Genu Recurvatum,(R) Genu Recurvatum Palpation Assessment Location R lateral elbow Palpation Location Lateral epicondyle of humerus Palpation Findings Tenderness Palpation Details Causes mild tingling in the forearm. R wrist Palpation Location Dorsal region of mid-section of wrist and digits 2-4 Palpation Details Soreness at end of work day. Back Palpation Location R Paraspinals Palpation Details Atrophy of muscles PT-OP-K Range of Motion Start: 09/15/22 09:13 Freq: Status: Active Protocol: Document 10/13/22 12:38 LRN (Rec: 10/13/22 13:26 LRN [id number]) Shoulder Goniometric Range of Motion Shoulder Right Passive Testing Position Supine Flexion 170 External Rotation at 90 degrees 90 Abduction Left Passive Testing Position Supine Extension 165 External Rotation at 90 degrees 85 Abduction PT-OP-L Special Tests Start: 09/15/22 09:13 Freq: Status: Active Protocol: Document 10/13/22 12:38 LRN (Rec: 10/13/22 13:26 LRN [id number]) Special Tests Cervical Spine Special Tests Traction Test Results + Foraminal Compression Test Results + Spurling's Test Test Results + Elbow Special Tests Lateral Epicondylitis Flexed Test Results - RUE PT-OP-M Strength Start: 09/15/22 09:13 Freq: Status: Active Protocol: Document 10/13/22 12:38 LRN (Rec: 10/13/22 13:26 LRN [id number]) Cervical Spine Strength Cervical Spine Manual Muscle Testing Testing Position 5 Flexion (C1-2) 5 Normal Extension 5 Normal Rotation Left 5 Normal Rotation Right 5 Normal Lateral Flexion Left (C3) 4+ Good+ Lateral Flexion Right (C3) 5 Normal Shoulder Strength Shoulder Manual Muscle Testing Left Comments MMT is 5/5 except as indicated above Right Internal Rotation 4- Good- Comments MMT is 5/5 except as indicated above PT-OP-Q Treatments Start: 09/15/22 09:13 Freq: Status: Active Protocol: Document 10/13/22 12:38 LRN (Rec: 10/13/22 13:26 LRN [id number]) Therapeutic Exercises Supine Exercises Pec stretch Supine Exercise Name Supine pec stretch on small roll, Ulnar butterfly & median glides Reps/Minutes 3' Comments I/S pt to do as HEP. Neck Elongation Supine Exercise Name Neck Elongation Reps/Minutes 10 SH x 10 Sitting Exercises Wrist Ext/Flex Sitting Exercise Name Elbow by side, lift to ceiling , palm up/palm down Side right Reps/Minutes 10x 2 each Comments No R elbow pain. Elbow flex Sitting Exercise Name Elbow flex strengthening w/ palm up and down Side bilateral Reps/Minutes 10x 2 each Comments No pain at R elbow Wrist flex/ext stretch Sitting Exercise Name Stretch to wrist extensors Side right Comments No stretch or pain at lateral elbow felt PT-OP-R Modalities Start: 09/15/22 09:13 Freq: Status: Active Protocol: Document 10/06/22 08:01 LRN (Rec: 10/06/22 17:06 LRN [id number]) Ultrasound Therapy Treatment R wrist extensors at lateral elbow Treatment Duration (minutes) 8 Patient Position Supine Coupling Medium Ultrasound Gel Applicator Size (cm2) 2 Frequency Setting (mHz) 1 Mode Setting Pulsed Duty Cycle 50% Intensity Setting (w/cm2) 1.0 PT-OP-T Assessment and Plan Start: 09/15/22 09:13 Freq: Status: Active Protocol: Document 10/13/22 12:38 LRN (Rec: 10/13/22 13:26 LRN [id number]) Physical Therapy Assessment Rehab Potential Rehabilitation Potential Good Evaluation Complexity Number of Personal Factors/Comorbidities 1-2 Number of Body Systems Impaired 4 or More Clinical Presentation at Evaluation Evolving Impairments Impairments Activity Tolerance,Functional Activities,Pain,Posture,ROM, Sensation,Soft Tissue Mobility ,Strength Goals Three Impairment Decreased function of R wrist Short Term Goal (STG) Decrease R UE pain with grabbing objects the size of a jar. 10/13/22: Pain rated 2-3/10 not too bad (intially was 4-9 /10).. STG Duration 11/04/22 progressing 10/13/22 Care Home Goal (LTG) Pt able to work 6 hrs using computer using modified techniques and modalities to elimnate soreness at end of the day. 10/13/22: Working 6-7 hrs/day, don't need to take breaks because hand isn't hurting as often. Pain less at end of day. 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 (Initial) L [employer] Supervisor strength in kgs (3 trials taken): Right: 13, 12, 14; Avg is 13 kgs. Short Term Goal (STG) Improve strength to hold wide objects like an apple in R hand without pain. 10/13/22: Not hurting as much, no increase in pain when holding apple, pain rated 2-3/ 10 in R forearm. STG Duration 11/04/22 progressing 10/13/22 Business Office Specialist Goal (LTG) Open new jars with R hand using modified techniques. LTG Duration 12/08/22 One Impairment Lacks appropriates self care HEP. Short Term Goal (STG) Pt will be educated in a self care treatment of edema/pain management and modified gripping techniques to decrease pain with use. 10/13/22: Has been educated in pain management techniques. STG Duration 11/04/22 10/13/22: Progressed Business Office Specialist Goal (LTG) Pt will be educated in a self snf exer program to improve, posture, R UE mobility, strength and function. 09/15/22: Educated in proper sitting and standing posture. HEP: Ulnar, Median and Radial n glides. LTG Duration 12/08/22 progressed 09/15/22: Assessment Summary Assessment Pt initially presented with possible C7 neural involvement and demonstrated UE neural tension (radial>medial>ulnar). She had R lateral elbow pain that radiated up her neck and down to her wrist and hand. Her forearm/wrist/hand pain appeared to be in C7 dermatome with radial nerve sensory patterns. Today she shows neural involvement with provactive testing of cervical compression and traction and a positive Spurlings Test. She has had a lessening of pain intensity and intermittent brachial pain. Her pain now is most notable in the R forearm that radiates down to the wrist. She has no R elbow pain with resisted wrist flex/Ext (negative for lateral epicondylitis), and only c/o R elbow and middle finger pain (C7) with resisted shoulder IR. The pt is working on her neck/shoulder postural positioning. The pt shows worsening of function per UE Quickdash scoring although the pt feels she is getting better. Further testing to determine neural involvement would be appropriate and continuation of physical therapy would be beneficial in further reducing the pt's pain and working towards improving the pt's UE strength and stability of the neck/shoulder. Physical Therapy Plan Frequency and Duration Frequency of Treatment 2x/Week Plan of Care Start Date 10/13/22 Plan of Care End Date 12/08/22 Therapeutic Interventions Therapeutic Interventions Home Exercise Program,Joint Mobilizations,Manual Therapy, Neuromuscular Re-education, Patient/Caregiver Education, Self-Care/Home Management, Taping,Therapeutic Activities, Therapeutic Exercises Modalities Cold Pack/Ice Massage,Electric Stimulation,Hot Packs, Traction- Mechanical Other Therapeutic Interventions Iontophoresis with 4mg/mL Dexamethasone with Sodium Phosphate. Next Visit Focus/Plan Next Note Type Treatment Note Next Visit Plan POC: Focus pt on being placed on HEP w/in 1 more visits until further insurance review , as pt will probably chose to discontinue therapy if not covered by insurance. If pt continues, try K-taping for inflammation at lateral epicondyle and add T/S JMT ( manual and open book). Assess Cervical ROM and complete shoulder ROM. Strengthen R elbow for stability with good cervical alignment. Improve UE mobility, circulation, & decr inflammation/pain. Education: HEP, Manual therapy T/S, ROM, Strengthening, Modalities ( Ionto, taping). Monitor UE Neural glides,
--- NOTE | 2022-10-13 18:26 | PT.OPPOC ---
Physical, Occupational & Speech Therapy At [facility] Current Diagnoses Pain in right elbow (10/13/22) Pain in right wrist (10/13/22) Postural kyphosis, site unspecified (10/13/22) Postural lordosis, site unspecified (10/13/22) Pain in right arm (10/13/22) Visit Care Team Role Provider Type Jaye Hurtado DO Attending Provider Physician Family Provider Primary Care Provider Referring Provider Specialty: Medical Address: [address] [place] [address], [address], [place], [address] Email: [email or web address] Plan Of Care PT-OP-T Assessment and Plan Start: 09/15/22 09:13 Freq: Status: Active Protocol: Document 10/13/22 12:38 LRN (Rec: 10/13/22 13:26 LRN [id number]) Physical Therapy Assessment Rehab Potential Rehabilitation Potential Good Evaluation Complexity Number of Personal Factors/Comorbidities 1-2 Number of Body Systems Impaired 4 or More Clinical Presentation at Evaluation Evolving Impairments Impairments Activity Tolerance,Functional Activities,Pain,Posture,ROM, Sensation,Soft Tissue Mobility ,Strength Goals Three Impairment Decreased function of R wrist Short Term Goal (STG) Decrease R UE pain with grabbing objects the size of a jar. 10/13/22: Pain rated 2-3/10 not too bad (intially was 4-9 /10).. STG Duration 11/04/22 progressing 10/13/22 Senior Living Goal (LTG) Pt able to work 6 hrs using computer using modified techniques and modalities to elimnate soreness at end of the day. 10/13/22: Working 6-7 hrs/day, don't need to take breaks because hand isn't hurting as often. Pain less at end of day. 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 (Initial) L Steel Worker strength in kgs (3 trials taken): Right: 13, 12, 14; Avg is 13 kgs. Short Term Goal (STG) Improve strength to hold wide objects like an apple in R hand without pain. 10/13/22: Not hurting as much, no increase in pain when holding apple, pain rated 2-3/ 10 in R forearm. STG Duration 11/04/22 progressing 10/13/22 Frame Trimmer Goal (LTG) Open new jars with R hand using modified techniques. LTG Duration 12/08/22 One Impairment Lacks appropriates self care HEP. Short Term Goal (STG) Pt will be educated in a self care treatment of edema/pain management and modified gripping techniques to decrease pain with use. 10/13/22: Has been educated in pain management techniques. STG Duration 11/04/22 10/13/22: Progressed Frame Trimmer Goal (LTG) Pt will be educated in a self mcc exer program to improve, posture, R UE mobility, strength and function. 09/15/22: Educated in proper sitting and standing posture. HEP: Ulnar, Median and Radial n glides. LTG Duration 12/08/22 progressed 09/15/22: Assessment Summary Assessment Pt initially presented with possible C7 neural involvement and demonstrated UE neural tension (radial>medial>ulnar). She had R lateral elbow pain that radiated up her neck and down to her wrist and hand. Her forearm/wrist/hand pain appeared to be in C7 dermatome with radial nerve sensory patterns. Today she shows neural involvement with provactive testing of cervical compression and traction and a positive Spurlings Test. She has had a lessening of pain intensity and intermittent brachial pain. Her pain now is most notable in the R forearm that radiates down to the wrist. She has no R elbow pain with resisted wrist flex/Ext (negative for lateral epicondylitis), and only c/o R elbow and middle finger pain (C7) with resisted shoulder IR. The pt is working on her neck/shoulder postural positioning. The pt shows worsening of function per UE Quickdash scoring although the pt feels she is getting better. Further testing to determine neural involvement would be appropriate and continuation of physical therapy would be beneficial in further reducing the pt's pain and working towards improving the pt's UE strength and stability of the neck/shoulder. Physical Therapy Plan Frequency and Duration Frequency of Treatment 2x/Week Plan of Care Start Date 10/13/22 Plan of Care End Date 12/08/22 Therapeutic Interventions Therapeutic Interventions Home Exercise Program,Joint Mobilizations,Manual Therapy, Neuromuscular Re-education, Patient/Caregiver Education, Self-Care/Home Management, Taping,Therapeutic Activities, Therapeutic Exercises Modalities Cold Pack/Ice Massage,Electric Stimulation,Hot Packs, Traction- Mechanical Other Therapeutic Interventions Iontophoresis with 4mg/mL Dexamethasone with Sodium Phosphate. Next Visit Focus/Plan Next Note Type Treatment Note Next Visit Plan POC: Focus pt on being placed on HEP w/in 1 more visits until further insurance review , as pt will probably chose to discontinue therapy if not covered by insurance. If pt continues, try K-taping for inflammation at lateral epicondyle and add T/S JMT ( manual and open book). Assess Cervical ROM and complete shoulder ROM. Strengthen R elbow for stability with good cervical alignment. Improve UE mobility, circulation, & decr inflammation/pain. Education: HEP, Manual therapy T/S, ROM, Strengthening, Modalities ( Ionto, taping). Monitor UE Neural glides, Plan of Care Dates Plan of Care Start Date 10/13/22 Plan of Care End Date 12/08/22 Electronically Signed by: Sandrine Parker, PT 10/13/22 6500 If you are in agreement with this Plan of Care, please return a signed and dated copy. I have reviewed this Plan of Care and certify that the skilled therapy services above are required to meet the patient?s needs. Physician Signature Date Printed Name and Credentials Clinical Instructor Signature Printed Name and Credentials
--- NOTE | 2022-11-01 17:54 | PT.OTN ---
Current Diagnoses Pain in right elbow (11/01/22) Pain in right wrist (11/01/22) Postural kyphosis, site unspecified (11/01/22) Postural lordosis, site unspecified (11/01/22) Pain in right arm (11/01/22) Physical Therapy Treatment Note PT-OP-A Visit Information Start: 09/15/22 09:13 Freq: Status: Active Protocol: Document 11/01/22 12:32 LRN (Rec: 11/01/22 13:17 LRN [id number]) Out-Patient Physical Therapy Visit Information Visit Information Visit Type Treatment Note Visit Start Time 12:32 Visit Stop Time 13:10 Total Visit Minutes 38 Visit Number 10/01 Evaluation Information Evaluation Date 09/06/22 Precautions Precautions Diabetes type II, depression, neck pain 2019. Hx of L humeral head fracture. PT-OP-B Current Condition Start: 09/15/22 09:13 Freq: Status: Active Protocol: Document 09/06/22 08:03 LRN (Rec: 09/15/22 09:31 LRN [id number]) Current Condition History of Current Condition Onset Date Nov 2019 Current Complaints Pain R UE History of Current Condition Pain goes up/down the R arm, starting at lateral elbow. Pt thought it was carpel tunnel. Took time off to have child, then returned to work and then her brother grabbed her R arm and twisted the forearm away from her body; therefore it may have caused the problem . Prior Treatments and Tests No Future Testing and Treatments Planned Next week nerve conduction test in 9 days. Developmental History Developmental History Has 9 year old son. Had problems with the R arm previously from too much typing and while had similar problem with arm, but not sharp pain like now. Wears compression sleeve over the elbow and a separate one for the wrist. Wears brace at nighttime to keep the R wrist at a good angle. Treatment Goals Patient/Caregiver Goals Pt goals: Improve strength to hold things Decrease pain with grabbing objects the size of a jar. Open new jars using modified techniques. Pt able to work 6 hrs using computer using modified techniques and modalities to elimnate soreness at end of the day. Current Functional Impairments (Reported) Functional Limitations- ADL's Difficulty and pain grabbing and holding things with force (no problems with a cooking or using a knife), and opening jars, working 6hrs or more causes soreness in arm. Functional Limitations- Mobility/Gait Returned to work 4 yrs ago after taking time off to have baby. 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 Functional Limitations- Recreation/ Difficulty and pain grabbing Hobbies and holding things with force (no problems with a cooking or using a knife), and opening jars, working 6hrs or more causes soreness in arm. Functional Limitations- Other Returned to work 4 yrs ago after taking time off to have baby. 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 PT-OP-C Subjective Start: 09/15/22 09:13 Freq: Status: Active Protocol: Document 11/01/22 12:32 LRN (Rec: 11/01/22 13:17 LRN [id number]) OP-PT Subjective Patient Comments Patient Comments Doesn't have the constant pain anymore and has been icing every now and then. If hit the tip of the index finger or the funny bone will get jolt of pain. Can hold a jar w/o problems. Still has trouble opening jars. PT-OP-H Neuro Start: 09/15/22 09:13 Freq: Status: Active Protocol: Document 09/06/22 08:03 LRN (Rec: 09/15/22 09:31 LRN [id number]) Sensation Evaluation Gross Sensation Gross Sensation Right UE Impaired Sensation Description Tingling Coordination Evaluation Upper Extremity Tests Left Finger to Nose Test Normal Performance Right Finger to Nose Test R slight low to tip of nose Deep Tendon Reflex & Clonus Assessment Deep Tendon Reflex Left Bicep Deep Tendon Reflex 2+ Normal Tricep Deep Tendon Reflex 2+ Normal Brachioradialis Deep Tendon Reflex 2+ Normal Right Bicep Deep Tendon Reflex 2+ Normal Right Tricep Deep Tendon Reflex 2+ Normal Bilateral Brachioradialis Deep Tendon Reflex 2+ Normal PT-OP-J Posture/Palpation/Skin Start: 09/15/22 09:13 Freq: Status: Active Protocol: Document 09/06/22 08:03 LRN (Rec: 09/15/22 09:31 LRN [id number]) Posture Evaluation Position Sitting Head/C-Spine Posture Side Bent Right T-Spine Posture Increased Kyphosis L-Spine Posture Increased Lordosis Scapula Posture (R) Elevated Arm Posture (L) Internally Rotated,(R) Internally Rotated Knee Posture (L) Genu Recurvatum,(R) Genu Recurvatum Palpation Assessment Location R lateral elbow Palpation Location Lateral epicondyle of humerus Palpation Findings Tenderness Palpation Details Causes mild tingling in the forearm. R wrist Palpation Location Dorsal region of mid-section of wrist and digits 2-4 Palpation Details Soreness at end of work day. Back Palpation Location R Paraspinals Palpation Details Atrophy of muscles PT-OP-K Range of Motion Start: 09/15/22 09:13 Freq: Status: Active Protocol: Document 10/13/22 12:38 LRN (Rec: 10/13/22 13:26 LRN [id number]) Shoulder Goniometric Range of Motion Shoulder Right Passive Testing Position Supine Flexion 170 External Rotation at 90 degrees 90 Abduction Left Passive Testing Position Supine Extension 165 External Rotation at 90 degrees 85 Abduction PT-OP-L Special Tests Start: 09/15/22 09:13 Freq: Status: Active Protocol: Document 10/13/22 12:38 LRN (Rec: 10/13/22 13:26 LRN [id number]) Special Tests Cervical Spine Special Tests Traction Test Results + Foraminal Compression Test Results + Spurling's Test Test Results + Elbow Special Tests Lateral Epicondylitis Flexed Test Results - RUE PT-OP-M Strength Start: 09/15/22 09:13 Freq: Status: Active Protocol: Document 10/13/22 12:38 LRN (Rec: 10/13/22 13:26 LRN [id number]) Cervical Spine Strength Cervical Spine Manual Muscle Testing Testing Position 5 Flexion (C1-2) 5 Normal Extension 5 Normal Rotation Left 5 Normal Rotation Right 5 Normal Lateral Flexion Left (C3) 4+ Good+ Lateral Flexion Right (C3) 5 Normal Shoulder Strength Shoulder Manual Muscle Testing Left Comments MMT is 5/5 except as indicated above Right Internal Rotation 4- Good- Comments MMT is 5/5 except as indicated above PT-OP-Q Treatments Start: 09/15/22 09:13 Freq: Status: Active Protocol: Document 11/01/22 12:32 LRN (Rec: 11/01/22 13:17 LRN [id number]) Therapeutic Exercises Supine Exercises Pec stretch Supine Exercise Name Supine pec stretch on small roll, Ulnar butterfly & median glides Reps/Minutes 3' Comments I/S pt to do as HEP. Sitting Exercises Ulnar n slider glide Sitting Exercise Name Ulnar n. slider and tensioner glides (Butterfly) Side right Reps/Minutes 5x each Comments slider-SB towards, Tensioner- SB away Radial n glide Sitting Exercise Name slider > tensioner > slider glide Side bilateral Reps/Minutes 5x each head position Comments Cuing no pain on R side w/ stretch Median n glide Sitting Exercise Name slider > tensioner > slider glide: Side bilateral Reps/Minutes 5x each head position Comments Cuing no pain on R side w/ stretch Self-Care/Home Management Treatment Activities Self-Care/Home Management Activities Issued & reviewed HEP stretches: Cervical L SB, shoulder Flex(AB), Sup: flex/ ER/IR. PT-OP-R Modalities Start: 09/15/22 09:13 Freq: Status: Active Protocol: Document 10/06/22 08:01 LRN (Rec: 10/06/22 17:06 [facility] [id number]) Ultrasound Therapy Treatment R wrist extensors at lateral elbow Treatment Duration (minutes) 8 Patient Position Supine Coupling Medium Ultrasound Gel Applicator Size (cm2) 2 Frequency Setting (mHz) 1 Mode Setting Pulsed Duty Cycle 50% Intensity Setting (w/cm2) 1.0 PT-OP-T Assessment and Plan Start: 09/15/22 09:13 Freq: Status: Active Protocol: Document 11/01/22 12:32 LRN (Rec: 11/01/22 13:17 [facility] [id number]) Physical Therapy Assessment Goals Three Impairment Decreased function of R wrist Short Term Goal (STG) Decrease R UE pain with grabbing objects the size of a jar. 10/13/22: Pain rated 2-3/10 not too bad (intially was 4-9 /10). 11/01/22: Now able to grab objects the size of a jar without R UE pain. STG Duration 11/04/22 (11/01/22: MET GOAL ) Shared Services Representative Goal (LTG) Pt able to work 6 hrs using computer using modified techniques and modalities to elimnate soreness at end of the day. 10/13/22: Working 6-7 hrs/day, don't need to take breaks because hand isn't hurting as often. Pain less at end of day. LTG Duration 12/08/22 progressing 10/13/22 Two Impairment Decreased R child day care provider strength Impairment (Initial) R Desktop Specialist strength in kgs (3 trials taken): Right: 8, 6, 6; Avg is 6.7 kgs. (Initial) L Desktop Specialist strength in kgs (3 trials taken): Right: 13, 12, 14; Avg is 13 kgs. Short Term Goal (STG) Improve strength to hold wide objects like an apple in R hand without pain. 10/13/22: Not hurting as much, no increase in pain when holding apple, pain rated 2-3/ 10 in R forearm. 11/01/22: Able to hold apple w /o pain. STG Duration 11/04/22 (11/01/22: MET GOAL ) Shared Services Representative Goal (LTG) Open new jars with R hand using modified techniques. 11/01/22: States she can open new jars by banging on them without jolts of pain. . LTG Duration 12/08/22 (11/01/22: MET GOAL) One Impairment Lacks appropriates self care HEP. Short Term Goal (STG) Pt will be educated in a self care treatment of edema/pain management and modified gripping techniques to decrease pain with use. 10/13/22: Has been educated in pain management techniques. STG Duration 11/04/22 10/13/22: Progressed Senior Living Goal (LTG) Pt will be educated in a self snf exer program to improve, posture, R UE mobility, strength and function. 09/15/22: Educated in proper sitting and standing posture. HEP: Ulnar, Median and Radial n glides. 11/01/22: HEP stretches: Cervical L SB, shoulder Flex( AB), Sup: flex/ER/IR. LTG Duration 12/08/22 progressed 11/01/22 (need c/s stab ex) Assessment Summary Assessment 4 visits approved for further PT. Pt has had a vacation of relaxation and rest of the R arm; therefore pain is decreased and function improved. Pt needs C/S stab ex's and review of HEP. Pt shows decreased cervical L sidebend and L shoulder mobility. Shoulder mobility due to previous injury. C/S mobility limited due to R neck tightness. Pt doing UE neural ex's without difficulty . Physical Therapy Plan Frequency and Duration Frequency of Treatment 2x/Week Plan of Care Start Date 10/13/22 Plan of Care End Date 12/08/22 Next Visit Focus/Plan Next Note Type Treatment Note Next Visit Plan POC: Focus pt on being placed on HEP in 1-4 visits. Review ex's issued. Add T/S JMT ( manual and open book). Educated in modified gripping techniques to decrease pain with use. Strengthen R elbow for stability with good cervical alignment. Education: HEP, Manual therapy T/S, ROM, Strengthening, modalities as needed for inflammation management.
--- NOTE | 2022-11-01 18:00 | PT.OTN ---
Current Diagnoses Pain in right elbow (11/01/22) Pain in right wrist (11/01/22) Postural kyphosis, site unspecified (11/01/22) Postural lordosis, site unspecified (11/01/22) Pain in right arm (11/01/22) Physical Therapy Treatment Note PT-OP-A Visit Information Start: 09/15/22 09:13 Freq: Status: Active Protocol: Document 11/01/22 12:32 LRN (Rec: 11/01/22 13:17 LRN [id number]) Out-Patient Physical Therapy Visit Information Visit Information Visit Type Treatment Note Visit Start Time 12:32 Visit Stop Time 13:10 Total Visit Minutes 38 Visit Number 10/01 Evaluation Information Evaluation Date 09/06/22 Precautions Precautions Diabetes type II, depression, neck pain 2019. Hx of L humeral head fracture. PT-OP-B Current Condition Start: 09/15/22 09:13 Freq: Status: Active Protocol: Document 09/06/22 08:03 LRN (Rec: 09/15/22 09:31 LRN [id number]) Current Condition History of Current Condition Onset Date Nov 2019 Current Complaints Pain R UE History of Current Condition Pain goes up/down the R arm, starting at lateral elbow. Pt thought it was carpel tunnel. Took time off to have child, then returned to work and then her brother grabbed her R arm and twisted the forearm away from her body; therefore it may have caused the problem . Prior Treatments and Tests No Future Testing and Treatments Planned Next week nerve conduction test in 9 days. Developmental History Developmental History Has 9 year old son. Had problems with the R arm previously from too much typing and while had similar problem with arm, but not sharp pain like now. Wears compression sleeve over the elbow and a separate one for the wrist. Wears brace at nighttime to keep the R wrist at a good angle. Treatment Goals Patient/Caregiver Goals Pt goals: Improve strength to hold things Decrease pain with grabbing objects the size of a jar. Open new jars using modified techniques. Pt able to work 6 hrs using computer using modified techniques and modalities to elimnate soreness at end of the day. Current Functional Impairments (Reported) Functional Limitations- ADL's Difficulty and pain grabbing and holding things with force (no problems with a cooking or using a knife), and opening jars, working 6hrs or more causes soreness in arm. Functional Limitations- Mobility/Gait Returned to work 4 yrs ago after taking time off to have baby. 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 Functional Limitations- Recreation/ Difficulty and pain grabbing Hobbies and holding things with force (no problems with a cooking or using a knife), and opening jars, working 6hrs or more causes soreness in arm. Functional Limitations- Other Returned to work 4 yrs ago after taking time off to have baby. 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 PT-OP-C Subjective Start: 09/15/22 09:13 Freq: Status: Active Protocol: Document 11/01/22 12:32 LRN (Rec: 11/01/22 13:17 LRN [id number]) OP-PT Subjective Patient Comments Patient Comments Doesn't have the constant pain anymore and has been icing every now and then. If hit the tip of the index finger or the funny bone will get jolt of pain. Can hold a jar w/o problems. Still has trouble opening jars. PT-OP-H Neuro Start: 09/15/22 09:13 Freq: Status: Active Protocol: Document 09/06/22 08:03 LRN (Rec: 09/15/22 09:31 LRN [id number]) Sensation Evaluation Gross Sensation Gross Sensation Right UE Impaired Sensation Description Tingling Coordination Evaluation Upper Extremity Tests Left Finger to Nose Test Normal Performance Right Finger to Nose Test R slight low to tip of nose Deep Tendon Reflex & Clonus Assessment Deep Tendon Reflex Left Bicep Deep Tendon Reflex 2+ Normal Tricep Deep Tendon Reflex 2+ Normal Brachioradialis Deep Tendon Reflex 2+ Normal Right Bicep Deep Tendon Reflex 2+ Normal Right Tricep Deep Tendon Reflex 2+ Normal Bilateral Brachioradialis Deep Tendon Reflex 2+ Normal PT-OP-J Posture/Palpation/Skin Start: 09/15/22 09:13 Freq: Status: Active Protocol: Document 09/06/22 08:03 LRN (Rec: 09/15/22 09:31 LRN [id number]) Posture Evaluation Position Sitting Head/C-Spine Posture Side Bent Right T-Spine Posture Increased Kyphosis L-Spine Posture Increased Lordosis Scapula Posture (R) Elevated Arm Posture (L) Internally Rotated,(R) Internally Rotated Knee Posture (L) Genu Recurvatum,(R) Genu Recurvatum Palpation Assessment Location R lateral elbow Palpation Location Lateral epicondyle of humerus Palpation Findings Tenderness Palpation Details Causes mild tingling in the forearm. R wrist Palpation Location Dorsal region of mid-section of wrist and digits 2-4 Palpation Details Soreness at end of work day. Back Palpation Location R Paraspinals Palpation Details Atrophy of muscles PT-OP-K Range of Motion Start: 09/15/22 09:13 Freq: Status: Active Protocol: Document 11/01/22 12:32 LRN (Rec: 11/01/22 18:00 LRN [id number]) Cervical Spine Range of Motion Cervical Spine Active Degrees Testing Position Sitting Flexion 22 Extension 67 Rotation Left 50 Rotation Right 50 Lateral Flexion Left 32 Lateral Flexion Right 40 ROM Limitations Soft Tissue Tightness Shoulder Goniometric Range of Motion Shoulder Right Passive Testing Position Sitting Flexion 157 Extension 53 Abduction 180 External Rotation at 0 degrees Abduction 53 Internal Rotation Behind Back (text) T6 Comments ER reaching behind head to T3 Left Passive Testing Position Sitting Flexion 165 Extension 53 Abduction 173 External Rotation at 0 degrees Abduction 48 Internal Rotation Behind Back (text) T6 Comments ER reaching behind head to T4 PT-OP-L Special Tests Start: 09/15/22 09:13 Freq: Status: Active Protocol: Document 10/13/22 12:38 LRN (Rec: 10/13/22 13:26 LRN [id number]) Special Tests Cervical Spine Special Tests Traction Test Results + Foraminal Compression Test Results + Spurling's Test Test Results + Elbow Special Tests Lateral Epicondylitis Flexed Test Results - RUE PT-OP-M Strength Start: 09/15/22 09:13 Freq: Status: Active Protocol: Document 10/13/22 12:38 LRN (Rec: 10/13/22 13:26 LRN [id number]) Cervical Spine Strength Cervical Spine Manual Muscle Testing Testing Position 5 Flexion (C1-2) 5 Normal Extension 5 Normal Rotation Left 5 Normal Rotation Right 5 Normal Lateral Flexion Left (C3) 4+ Good+ Lateral Flexion Right (C3) 5 Normal Shoulder Strength Shoulder Manual Muscle Testing Left Comments MMT is 5/5 except as indicated above Right Internal Rotation 4- Good- Comments MMT is 5/5 except as indicated above PT-OP-Q Treatments Start: 09/15/22 09:13 Freq: Status: Active Protocol: Document 11/01/22 12:32 LRN (Rec: 11/01/22 13:17 LRN [id number]) Therapeutic Exercises Supine Exercises Pec stretch Supine Exercise Name Supine pec stretch on small roll, Ulnar butterfly & median glides Reps/Minutes 3' Comments I/S pt to do as HEP. Sitting Exercises Ulnar n slider glide Sitting Exercise Name Ulnar n. slider and tensioner glides (Butterfly) Side right Reps/Minutes 5x each Comments slider-SB towards, Tensioner- SB away Radial n glide Sitting Exercise Name slider > tensioner > slider glide Side bilateral Reps/Minutes 5x each head position Comments Cuing no pain on R side w/ stretch Median n glide Sitting Exercise Name slider > tensioner > slider glide: Side bilateral Reps/Minutes 5x each head position Comments Cuing no pain on R side w/ stretch Self-Care/Home Management Treatment Activities Self-Care/Home Management Activities Issued & reviewed HEP stretches: Cervical L SB, shoulder Flex(AB), Sup: flex/ ER/IR. PT-OP-R Modalities Start: 09/15/22 09:13 Freq: Status: Active Protocol: Document 10/06/22 08:01 LRN (Rec: 10/06/22 17:06 LRN [id number]) Ultrasound Therapy Treatment R wrist extensors at lateral elbow Treatment Duration (minutes) 8 Patient Position Supine Coupling Medium Ultrasound Gel Applicator Size (cm2) 2 Frequency Setting (mHz) 1 Mode Setting Pulsed Duty Cycle 50% Intensity Setting (w/cm2) 1.0 PT-OP-T Assessment and Plan Start: 09/15/22 09:13 Freq: Status: Active Protocol: Document 11/01/22 12:32 LRN (Rec: 11/01/22 13:17 LRN [id number]) Physical Therapy Assessment Goals Three Impairment Decreased function of R wrist Short Term Goal (STG) Decrease R UE pain with grabbing objects the size of a jar. 10/13/22: Pain rated 2-3/10 not too bad (intially was 4-9 /10). 11/01/22: Now able to grab objects the size of a jar without R UE pain. STG Duration 11/04/22 (11/01/22: MET GOAL ) Penitentiary Goal (LTG) Pt able to work 6 hrs using computer using modified techniques and modalities to elimnate soreness at end of the day. 10/13/22: Working 6-7 hrs/day, don't need to take breaks because hand isn't hurting as often. Pain less at end of day. LTG Duration 12/08/22 progressing 10/13/22 Two Impairment Decreased R produce shipper strength Impairment (Initial) R Scrap Breaker strength in kgs (3 trials taken): Right: 8, 6, 6; Avg is 6.7 kgs. (Initial) L Scrap Breaker strength in kgs (3 trials taken): Right: 13, 12, 14; Avg is 13 kgs. Short Term Goal (STG) Improve strength to hold wide objects like an apple in R hand without pain. 10/13/22: Not hurting as much, no increase in pain when holding apple, pain rated 2-3/ 10 in R forearm. 11/01/22: Able to hold apple w /o pain. STG Duration 11/04/22 (11/01/22: MET GOAL ) Penitentiary Goal (LTG) Open new jars with R hand using modified techniques. 11/01/22: States she can open new jars by banging on them without jolts of pain. . LTG Duration 12/08/22 (11/01/22: MET GOAL) One Impairment Lacks appropriates self care HEP. Short Term Goal (STG) Pt will be educated in a self care treatment of edema/pain management and modified gripping techniques to decrease pain with use. 10/13/22: Has been educated in pain management techniques. STG Duration 11/04/22 10/13/22: Progressed Penitentiary Goal (LTG) Pt will be educated in a self long-term exer program to improve, posture, R UE mobility, strength and function. 09/15/22: Educated in proper sitting and standing posture. HEP: Ulnar, Median and Radial n glides. 11/01/22: HEP stretches: Cervical L SB, shoulder Flex( AB), Sup: flex/ER/IR. LTG Duration 12/08/22 progressed 11/01/22 (need c/s stab ex) Assessment Summary Assessment 4 visits approved for further PT. Pt has had a vacation of relaxation and rest of the R arm; therefore pain is decreased and function improved. Pt needs C/S stab ex's and review of HEP. Pt shows decreased cervical L sidebend and L shoulder mobility. Shoulder mobility due to previous injury. C/S mobility limited due to R neck tightness. Pt doing UE neural ex's without difficulty . Physical Therapy Plan Frequency and Duration Frequency of Treatment 2x/Week Plan of Care Start Date 10/13/22 Plan of Care End Date 12/08/22 Next Visit Focus/Plan Next Note Type Treatment Note Next Visit Plan POC: Focus pt on being placed on HEP in 1-4 visits. Review ex's issued. Add T/S JMT ( manual and open book). Educated in modified gripping techniques to decrease pain with use. Strengthen R elbow for stability with good cervical alignment. Education: HEP, Manual therapy T/S, ROM, Strengthening, modalities as needed for inflammation management.
--- NOTE | 2023-04-18 11:30 | PT.OPDS ---
Current Diagnoses Pain in right elbow (11/01/22) Pain in right wrist (11/01/22) Postural kyphosis, site unspecified (11/01/22) Postural lordosis, site unspecified (11/01/22) Pain in right arm (11/01/22) Visit Care Team Role Provider Type Jaye Hurtado DO Attending Provider Physician Family Provider Primary Care Provider Referring Provider Specialty: Medical Address: [address] [place] [address], [address], [place], [address] Email: [email or web address] Visit Number Visit Number 10/01 Discharge Summary PT-OP-B Current Condition Start: 09/15/22 09:13 Freq: Status: Active Protocol: Document 09/06/22 08:03 LRN (Rec: 09/15/22 09:31 LRN [id number]) Current Condition History of Current Condition Onset Date Nov 2019 Current Complaints Pain R UE History of Current Condition Pain goes up/down the R arm, starting at lateral elbow. Pt thought it was carpel tunnel. Took time off to have child, then returned to work and then her brother grabbed her R arm and twisted the forearm away from her body; therefore it may have caused the problem . Prior Treatments and Tests No Future Testing and Treatments Planned Next week nerve conduction test in 9 days. Developmental History Developmental History Has 9 year old son. Had problems with the R arm previously from too much typing and while had similar problem with arm, but not sharp pain like now. Wears compression sleeve over the elbow and a separate one for the wrist. Wears brace at nighttime to keep the R wrist at a good angle. Treatment Goals Patient/Caregiver Goals Pt goals: Improve strength to hold things Decrease pain with grabbing objects the size of a jar. Open new jars using modified techniques. Pt able to work 6 hrs using computer using modified techniques and modalities to elimnate soreness at end of the day. Current Functional Impairments (Reported) Functional Limitations- ADL's Difficulty and pain grabbing and holding things with force (no problems with a cooking or using a knife), and opening jars, working 6hrs or more causes soreness in arm. Functional Limitations- Mobility/Gait Returned to work 4 yrs ago after taking time off to have baby. 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 Functional Limitations- Recreation/ Difficulty and pain grabbing Hobbies and holding things with force (no problems with a cooking or using a knife), and opening jars, working 6hrs or more causes soreness in arm. Functional Limitations- Other Returned to work 4 yrs ago after taking time off to have baby. 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 PT-OP-C Subjective Start: 09/15/22 09:13 Freq: Status: Active Protocol: Document 11/01/22 12:32 LRN (Rec: 11/01/22 13:17 LRN [id number]) OP-PT Subjective Patient Comments Patient Comments Doesn't have the constant pain anymore and has been icing every now and then. If hit the tip of the index finger or the funny bone will get jolt of pain. Can hold a jar w/o problems. Still has trouble opening jars. PT-OP-H Neuro Start: 09/15/22 09:13 Freq: Status: Active Protocol: Document 09/06/22 08:03 LRN (Rec: 09/15/22 09:31 LRN [id number]) Sensation Evaluation Gross Sensation Gross Sensation Right UE Impaired Sensation Description Tingling Coordination Evaluation Upper Extremity Tests Left Finger to Nose Test Normal Performance Right Finger to Nose Test R slight low to tip of nose Deep Tendon Reflex & Clonus Assessment Deep Tendon Reflex Left Bicep Deep Tendon Reflex 2+ Normal Tricep Deep Tendon Reflex 2+ Normal Brachioradialis Deep Tendon Reflex 2+ Normal Right Bicep Deep Tendon Reflex 2+ Normal Right Tricep Deep Tendon Reflex 2+ Normal Bilateral Brachioradialis Deep Tendon Reflex 2+ Normal PT-OP-J Posture/Palpation/Skin Start: 09/15/22 09:13 Freq: Status: Active Protocol: Document 09/06/22 08:03 LRN (Rec: 09/15/22 09:31 LRN [id number]) Posture Evaluation Position Sitting Head/C-Spine Posture Side Bent Right T-Spine Posture Increased Kyphosis L-Spine Posture Increased Lordosis Scapula Posture (R) Elevated Arm Posture (L) Internally Rotated,(R) Internally Rotated Knee Posture (L) Genu Recurvatum,(R) Genu Recurvatum Palpation Assessment Location R lateral elbow Palpation Location Lateral epicondyle of humerus Palpation Findings Tenderness Palpation Details Causes mild tingling in the forearm. R wrist Palpation Location Dorsal region of mid-section of wrist and digits 2-4 Palpation Details Soreness at end of work day. Back Palpation Location R Paraspinals Palpation Details Atrophy of muscles PT-OP-K Range of Motion Start: 09/15/22 09:13 Freq: Status: Active Protocol: Document 11/01/22 12:32 LRN (Rec: 11/01/22 18:00 LRN [id number]) Cervical Spine Range of Motion Cervical Spine Active Degrees Testing Position Sitting Flexion 22 Extension 67 Rotation Left 50 Rotation Right 50 Lateral Flexion Left 32 Lateral Flexion Right 40 ROM Limitations Soft Tissue Tightness Shoulder Goniometric Range of Motion Shoulder Right Passive Testing Position Sitting Flexion 157 Extension 53 Abduction 180 External Rotation at 0 degrees Abduction 53 Internal Rotation Behind Back (text) T6 Comments ER reaching behind head to T3 Left Passive Testing Position Sitting Flexion 165 Extension 53 Abduction 173 External Rotation at 0 degrees Abduction 48 Internal Rotation Behind Back (text) T6 Comments ER reaching behind head to T4 PT-OP-L Special Tests Start: 09/15/22 09:13 Freq: Status: Active Protocol: Document 10/13/22 12:38 LRN (Rec: 10/13/22 13:26 LRN [id number]) Special Tests Cervical Spine Special Tests Traction Test Results + Foraminal Compression Test Results + Spurling's Test Test Results + Elbow Special Tests Lateral Epicondylitis Flexed Test Results - RUE PT-OP-M Strength Start: 09/15/22 09:13 Freq: Status: Active Protocol: Document 10/13/22 12:38 LRN (Rec: 10/13/22 13:26 LRN [id number]) Cervical Spine Strength Cervical Spine Manual Muscle Testing Testing Position 5 Flexion (C1-2) 5 Normal Extension 5 Normal Rotation Left 5 Normal Rotation Right 5 Normal Lateral Flexion Left (C3) 4+ Good+ Lateral Flexion Right (C3) 5 Normal Shoulder Strength Shoulder Manual Muscle Testing Left Comments MMT is 5/5 except as indicated above Right Internal Rotation 4- Good- Comments MMT is 5/5 except as indicated above PT-OP-T Assessment and Plan Start: 09/15/22 09:13 Freq: Status: Active Protocol: Document 04/18/23 11:19 LRN (Rec: 04/18/23 11:29 LRN [id number]) Physical Therapy Assessment Goals Three Impairment Decreased function of R wrist Short Term Goal (STG) Decrease R UE pain with grabbing objects the size of a jar. 10/13/22: Pain rated 2-3/10 not too bad (intially was 4-9 /10). 11/01/22: Now able to grab objects the size of a jar without R UE pain. STG Duration 11/04/22 (11/01/22: MET GOAL ) Jail Goal (LTG) Pt able to work 6 hrs using computer using modified techniques and modalities to elimnate soreness at end of the day. 10/13/22: Working 6-7 hrs/day, don't need to take breaks because hand isn't hurting as often. Pain less at end of day. LTG Duration 12/08/22 (04/18/23: Pt unavailable for final assess) Two Impairment Decreased R life insurance agent strength Impairment (Initial) R Health Care Legal Assistant strength in kgs (3 trials taken): Right: 8, 6, 6; Avg is 6.7 kgs. (Initial) L Health Care Legal Assistant strength in kgs (3 trials taken): Right: 13, 12, 14; Avg is 13 kgs. Short Term Goal (STG) Improve strength to hold wide objects like an apple in R hand without pain. 10/13/22: Not hurting as much, no increase in pain when holding apple, pain rated 2-3/ 10 in R forearm. 11/01/22: Able to hold apple w /o pain. STG Duration 11/04/22 (11/01/22: MET GOAL ) Jail Goal (LTG) Open new jars with R hand using modified techniques. 11/01/22: States she can open new jars by banging on them without jolts of pain. LTG Duration 12/08/22 (11/01/22: MET GOAL) One Impairment Lacks appropriates self care HEP. Short Term Goal (STG) Pt will be educated in a self care treatment of edema/pain management and modified gripping techniques to decrease pain with use. 10/13/22: Has been educated in pain management techniques. STG Duration 11/04/22 (04/18/23: Partially met goal, modified gripping educ needed) Relocation Commissioner Goal (LTG) Pt will be educated in a self fpc exer program to improve, posture, R UE mobility, strength and function. 09/15/22: Educated in proper sitting and standing posture. HEP: Ulnar, Median and Radial n glides. 11/01/22: HEP stretches: Cervical L SB, shoulder Flex( AB), Sup: flex/ER/IR. LTG Duration 12/08/22 (04/18/23: Partially met goal, c/s stab ex's needed) Assessment Summary Assessment Pt was last seen 04/18/23. She made good progress and reduction of pain with functional activities. She was last seen 11/01/22. A message was left for pt to call back to schedule more visits, but pt did not call back. Pt's plan of care 12/08/22; therefore pt will need a new referral to return to physical therapy. Pt is being discharged from therapy due to lack of attendance. Physical Therapy Plan Discharge Physical Therapy Discharge Reasons No Longer Attending PT Discharge Comments Thank you for your referral.
== END 2023-04-19 14:51 | disposition home or self-care (01) ==
LOC: PHYS 12:30
PROVIDERS: Family Provider Family Medicine; PCP Family Medicine; Referring Provider Family Medicine; Visit Provider Family Medicine
DX: M25.521 Pain in right elbow (principal); M25.531 Pain in right wrist; M79.601 Pain in right arm; M40.00 Postural kyphosis, site unspecified; M40.40 Postural lordosis, site unspecified
CPT/HCPCS: 97035; 97110; 97140; 97162; 97535; 97750

== ENCOUNTER 2023-01-06 07:52 | Day surgery (SDC) | payer OTHER, SELFPAY ==
--- NOTE | 2023-01-06 | PATH_ITS ---
[facility] Accession Number: [id number] No. of containers..04 Tissue . 01 Material submitted: . PART A: colon - CECAL POLYP PART B: colon - DESCENDING COLON POLYP X3 PART C: colon - LARGE DESCENDING COLON POLYP PART D: rectum - RECTAL POLYP . 01 Diagnosis: A. Cecal Polyp: Colonic mucosa with prominent benign lymphoid aggregate. Negative for dysplasia or malignancy. . B. Descending Colon Polyps: Tubular adenoma x1. Hyperplastic polyp x2. . C. Large Descending Colon Polyp: Tubulovillous adenoma. Negative for high-grade dysplasia or malignancy. . D. Rectal Polyp: Hyperplastic polyp. [facility] 01/12/2023 1303 Local . 01 Electronically signed: . Adrien Ramos MD, PhD, Pathologist NPI- [id number] . 01 Gross description: . Part A: CECAL POLYP: Received in formalin are 3 fragment(s) of garcia, soft tissue measuring 0.1 x 0.1 x 0.1 cm to 0.6 x 0.2 x 0.1 cm submitted entirely in 1 cassette(s) Part B: DESCENDING COLON POLYP X3: Received in formalin are 4 fragment(s) of garcia, soft tissue measuring 0.1 x 0.1 x 0.1 cm to 0.3 x 0.2 x 0.2 cm submitted entirely in 1 cassette(s) Part C: LARGE DESCENDING COLON POLYP: Received in formalin is 1 fragment(s) of garcia, soft tissue measuring 0.9 x 0.8 x 0.6 cm submitted entirely in 1 cassette(s) Part D: RECTAL POLYP: Received in formalin is 1 fragment(s) of garcia, soft tissue measuring 0.4 x 0.3 x 0.3 cm submitted entirely in 1 cassette(s) /RALF 01/10/2023 1936 Local . 01 Pathologist provided ICD-10: D12.4, K62.1 . 01 CPT . 323987, 443894, 142340, 853981 Performed at: 01 [facility] [address] [place] [address], [place], [place] [id number] MD Vance Egan MD Phone: [phone]
[2023-01-06 08:09] VITALS: BMI 28.3
[2023-01-06 08:19] VITALS: BP 121/73; PULSE 76; RESP 17; TEMP 36.5; O2SAT 96
--- NOTE | 2023-01-06 09:27 | PM.HP.1 ---
History of Present Illness History of Present Illness Date Patient Seen: 01/06/23 Time Patient Seen: 09:28 Chief complaint: Screening Colonoscopy Narrative: Ms. Phipps presents today for her 1st screening colonoscopy. Her dad does have some type of colon cancer but she is not sure exactly because she saysm it is not being treated because treatment is not needed yet.She is unclear otherwise upon the pathology or her conferred risk factor for colon cancer based on her father's medical history. She will find out more and report to her primary care physician. She has 2 siblings who have not yet had there screening colonoscopy because they are younger. She denies any symptoms of bleeding from below diarrhea constipation abdominal pain and has had a . Otherwise she has no further questions and wants to proceed with her colonoscopy today PFSH Medical History Bipolar disorder Chronic neck pain (~1999) HTN (hypertension) Hyperlipidemia Type 2 diabetes mellitus without complication (07/2019) Vaping nicotine dependence, tobacco product (04/2021) Surgical History Status post appendectomy Status post delivery Social History household members: family Smoking Status: Current every day smoker Tobacco: How many years used: 30 quit status: considering quitting second hand exposure: No alcohol intake: current substance use type: marijuana (daily ) Meds Home Medications and Allergies Home Medications Medication Instructions Recorded Confirmed Type calcium carbonate 600 mg calcium 600 mg PO QDAY ##0 07/28/17 01/06/23 History (1,500 mg) tablet lithium carbonate 600 mg capsule 900 mg PO BEDTIME 08/14/19 01/06/23 History sertraline 50 mg tablet 100 mg PO DAILY 06/23/20 01/06/23 History multivitamin-ferrous 1 tab PO DAILY 09/01/20 01/06/23 History fumarate-folic acid 18 mg-400 mcg tablet atorvastatin 20 mg tablet 20 mg PO BEDTIME #90 tabs 08/10/22 01/06/23 Rx metformin 1,000 mg tablet,extended 1,000 mg PO DAILY #90 tabs 08/10/22 01/06/23 Rx release 24hr cariprazine 1.5 mg capsule 1.5 mg PO DAILY 01/06/23 01/06/23 History (Vraylar) Allergies Allergy/AdvReac Type Severity Reaction Status Date / Time codeine [CODEINE] Allergy Unknown Rash Verified 01/06/23 08:03 Exam Vital Signs (past 8 hours): - 01/06/23 08:19 Temperature 97.7 F Pulse Rate 76 Respiratory Rate 17 Blood Pressure 121/73 Pulse Oximetry 96 Oxygen Delivery Method Room Air Oxygen Delivery Method Room Air Const General: cooperative, healthy appearing and comfortable Nutritional Appearance: overweight (BMI 28) HENMT Head: normal to inspection and normocephalic Mouth: oral mucosae normal Eyes General: appearance normal, both eyes and all related structures Resp Effort & Inspection: normal respiratory effort and able to speak in complete sentences GI Palpation: soft and No tender Assessment & Plan Assessment and plan (1) Screening for colon cancer: Status: Acute (2) Family history of colon cancer in father: Status: Acute Assessment & Plan narrative: Presents today for screening colonoscopy I discussed the risks benefits and alternatives including but not limited to perforation of the colon and an incomplete exam she fully understands these risks and would like to proceed.
[2023-01-06 10:20] VITALS: BP 90/40; PULSE 85; RESP 19; TEMP 36.7; O2SAT 95
[2023-01-06 10:21] VITALS: BP 89/51; PULSE 79
--- NOTE | 2023-01-06 10:24 | P.OP.COLON_ITS ---
Operative Date/Time/Diagnoses Date of procedure: 01/06/23 Time of procedure: 10:24 Pre-op diagnosis: Screening for colon cancer, family history of colon cancer in father Post-op diagnosis: same Procedure & Clinicians Study performed: Colonoscopy and biopsy Indications: Screening for colon cancer, family history of colon cancer father Surgeon: Eileen Blair Procedure Notes Procedure in detail: Patient was taken to the endoscopy suite and placed in a left lateral decubitus position. A time-out was performed. With the help of anesthesiologist conscious sedation was induced and monitored throughout the case. A digital rectal exam was performed and there were no masses or strictures. The colonoscope was introduced into the anal canal and advanced through to the cecum. Right at the rectosigmoid junction a very large pedunculated polyp was seen. The scope was further advanced through to the cecum. A photograph of the appendiceal orifice was obtained. There was a very small polyp near the appendiceal orifice that was biopsied with the forceps and sent for pathology. The bowel prep was good [place] bowel prep score of 2. The scope was then withdrawn for a total of 20 minutes including biopsies. In the descending colon there were 2 small polyps in close proximity they were both biopsied with forceps and sent for pathology. Next right at the rectosigmoid junction I encountered the very large pedunculated polyp that was snared. It was too large to fit down the suction canister and so was removed at the on the tip of the scope. It was least 1 cm in size. I then reinserted the scope to the point of the biopsy inspected the biopsy site. There was some clot there and some old bleeding but the site looked hemostatic. I then continued to withdraw the scope for the remainder of the colonoscopy and encountered 1 small rectal polyp that was removed with a forceps. The scope was then retroflexed and a photograph of the internal hemorrhoidal piles was obtained. Patient tolerated the procedure well and went in good condition to the postoperative care unit. Also note there were some right-sided diverticula that were photographed as well. Findings: divertiulosis and polyp(s) Specimen(s): other (1. Cecal polyp small x1 2. Descending colon polyps small x2 3. Large descending colon polyp 4. Small rectal polyp) Complications: none Post-procedure Recommendations: Colonoscopy in 3 years Plan for aftercare: I do recommend a fiber supplement for any patient with polyps. In this case the 1 large polyp that was removed will confer a 3 year recommended follow-up due to its size.
[2023-01-06 10:27] VITALS: BP 96/59; PULSE 69; RESP 16; O2SAT 95
[2023-01-06 10:32] VITALS: BP 123/69; PULSE 67; RESP 13; TEMP 36.2; O2SAT 98
[2023-01-06 10:33] VITALS: BP 126/65; PULSE 54; RESP 15; O2SAT 99
== END 2023-01-06 11:03 | disposition home or self-care (01) ==
PROVIDERS: Family Provider Family Medicine; PCP Family Medicine; Referring Provider Surgery; Visit Provider Surgery
PROC: 0DJD8ZZ Inspection of Lower Intestinal Tract, Via Natural or Artificial Opening Endoscopic (ICD-10-PCS; CPT 45378; principal; 2023-01-06 08:45)
DX: Z12.11 Encounter for screening for malignant neoplasm of colon (principal); Z80.0 Family history of malignant neoplasm of digestive organs; D12.4 Benign neoplasm of descending colon; K62.1 Rectal polyp
CPT/HCPCS: 45380; J2704

== ENCOUNTER 2023-05-10 07:42 | Emergency (ER) | payer OTHER, SELFPAY ==
[2023-05-10] VITALS (17 sets, daily range): BP systolic 94–172; BP diastolic 50–106; PULSE 55–88; RESP 12–32; TEMP 37; O2SAT 93–100; BMI 28.3
--- NOTE | 2023-05-10 07:50 | DI.RAD.S_ITS ---
PROCEDURE: XR ANKLE LT 2V INDICATIONS: SLIP ON ICE, ANKLE DEFORMITY TECHNIQUE: 2 views of the ankle were acquired. COMPARISON: [facility], , ANKLE 3 VIEWS LEFT, 10/25/2014, 13:24. FINDINGS: Bones: There is a comminuted fracture of posterior malleolus with displacement. In addition, there is a fracture of lateral malleolus with displacement. Posterior displacement of talus at the tibiotalar joint. No suspicious bony lesions. Soft tissues: No tibiotalar joint effusion. Achilles tendon appears normal. IMPRESSION: Distal tibial and fibular fractures with posterior displacement of the talus at the tibiotalar joint. Dictated by: Nova Oglesby M.D. on 05/10/2023 at 8:20 Approved by: Nova Oglesby M.D. on 05/10/2023 at 8:22
--- NOTE | 2023-05-10 07:51 | ED.LOWEXIN ---
HPI - Extremity Injury (Lower) General Chief Complaint: Extremity Injury, Lower Stated Complaint: slipped on ice poss broken leg/ankle Time Seen by Provider: 05/10/23 07:43 History of Present Illness HPI Narrative: Patient presents by private vehicle from home for left ankle injury and deformity. She slipped on ice approximately 1 hour prior to arrival. Obvious deformity to L ankle. Intact sensation and movement. Related Data Home Medications Medication Instructions Recorded Confirmed calcium carbonate 600 mg calcium 600 mg PO QDAY ##0 07/28/17 03/27/23 (1,500 mg) tablet lithium carbonate 600 mg capsule 900 mg PO BEDTIME 08/14/19 03/27/23 sertraline 50 mg tablet 100 mg PO DAILY 06/23/20 03/27/23 multivitamin-ferrous 1 tab PO DAILY 09/01/20 03/27/23 fumarate-folic acid 18 mg-400 mcg tablet cariprazine 1.5 mg capsule 1.5 mg PO DAILY 01/06/23 03/27/23 (Vraylar) omega-3 fatty acids [Fish Oil] PO 03/27/23 03/27/23 Previous Rx's Medication Instructions Recorded atorvastatin 20 mg tablet 20 mg PO BEDTIME #90 tabs 08/10/22 metformin 1,000 mg tablet,extended 1,000 mg PO DAILY #90 tabs 08/10/22 release 24hr psyllium husk (with sugar) 3.4 1 tbsp PO BID #822 grams 01/06/23 gram/7 gram oral powder (Fiber (psyllium husk-sugar)) hydrocodone 5 mg-acetaminophen 325 1 tab PO Q4-6H PRN pain #15 tabs 05/10/23 mg tablet methocarbamol 500 mg tablet 500 mg PO TID #30 tabs 05/10/23 Allergies Allergy/AdvReac Type Severity Reaction Status Date / Time codeine [CODEINE] Allergy Unknown Rash Verified 03/27/23 12:00 Review of Systems Review of Systems Narrative: Negative except as noted above Patient History Medical History Lateral epicondylitis, right elbow (~2020) Paresthesia and pain of both upper extremities (~2020) Vaping nicotine dependence, tobacco product (04/2021) Chronic neck pain (~1999) Bipolar disorder Type 2 diabetes mellitus without complication (07/2019) Hyperlipidemia Surgical History Status post delivery Status post appendectomy Social History household members: family Smoking Status: Current every day smoker Tobacco: How many years used: 30 quit status: considering quitting second hand exposure: No alcohol intake: current substance use type: marijuana (daily ) Smoking Status: Current every day smoker alcohol intake frequency: holidays/special occasions only Substance Use Type: marijuana Exam Narrative Exam Narrative: Const: Awake, alert, in pain Cardiac: regular rate, regular rhythm RESP: unlabored, clear bilaterally, no wheezing GI: Atraumatic, soft, nontender, nondistended, no rebound, no guarding MSK: Obvious deformity left ankle, able to wiggle toes, palpable DP pulses Skin: Warm, Dry, intact, no rashes Neuro: AO x3, CN II-XII grossly intact, moves all extremities Psych: Appropriate for current condition Initial Vital Signs Initial Vital Signs: Vital Signs Temperature 98.6 F 05/10/23 07:49 Pulse Rate 60 05/10/23 07:49 Respiratory Rate 20 05/10/23 07:49 Blood Pressure 117/68 05/10/23 07:49 Pulse Oximetry 96 05/10/23 07:49 Oxygen Delivery Method Room Air 05/10/23 07:49 Procedures Orthopedic Fracture Reduction Fracture #1: Time of procedure: 08:14 Time Out Performed: Yes Side: left Fracture Reduction Location: tibia and fibula Analgesia: procedural sedation Technique: direct manipulation and traction/counter-traction Post Reduction X-rays Demonstrate: acceptable reduction Post-reduction neuro exam: intact Post-reduction vascular exam: intact Splint Applied: Yes Patient Tolerated Procedure: Well and No complications Procedural Sedation Time of procedure: 08:14 Consent signed: Yes Time out performed: Yes Indication: fracture/dislocation reduction ASA Class: III Time of Last PO Intake: 18:00 Preparation: gambling monitor applied, pulse oximeter, capnometry used, supplemental O2 applied, suction/airway equipment at bedside and IV secured Ketamine: IV Ketamine dose (mg): 90 Intraservice time/total sedation time (min): 20 ED Sedation Level: Moderate (Concious) Patient Tolerated Procedure: Well and No complications Complications: none Course Orders Ordered: ED Orders 05/10/23 07:50 XR ankle LT 2V Stat 05/10/23 08:27 XR ankle LT min 3V Stat Discontinued Medications Ketamine HCl (Ketamine 500 Mg/5 Ml Inj) 100 mg IV NOW ONE Stop: 05/10/23 07:59 Last Admin: 05/10/23 08:22 Dose: 90 mg Documented By: AMV Lorazepam (Lorazepam 2 Mg/Ml Inj) 2 mg IV NOW ONE Stop: 05/10/23 08:00 Last Admin: 05/10/23 08:13 Dose: 2 mg Documented By: AMV Morphine Sulfate (Morphine 4 Mg/Ml Inj) 4 mg IV NOW ONE Stop: 05/10/23 07:51 Last Admin: 05/10/23 07:58 Dose: 4 mg Documented By: AMV Consultations Consultation #1: Dr. Hernandez -reviewed images, acceptable reduction. Will see in clinic. Vital Signs Vital signs: Vital Signs - 8 hr 05/10/23 07:49 05/10/23 08:06 05/10/23 08:11 Temperature 98.6 F Pulse Rate 60 59 L Respiratory Rate 20 Blood Pressure 117/68 105/51 L Pulse Oximetry 96 95 Oxygen Delivery Method Room Air Oxygen Flow Rate 05/10/23 08:11 05/10/23 08:17 05/10/23 08:17 Temperature Pulse Rate 56 L 79 Respiratory Rate 24 12 Blood Pressure 143/65 H Pulse Oximetry 93 95 Oxygen Delivery Method Nasal Cannula Oxygen Flow Rate 2 05/10/23 08:20 05/10/23 08:20 05/10/23 08:25 Temperature Pulse Rate 88 78 Respiratory Rate Blood Pressure 171/106 H Pulse Oximetry 98 100 Oxygen Delivery Method Nasal Cannula Oxygen Flow Rate 4 05/10/23 08:25 05/10/23 08:30 05/10/23 08:31 Temperature Pulse Rate 66 65 Respiratory Rate 27 H 32 H Blood Pressure 172/85 H Pulse Oximetry 99 100 Oxygen Delivery Method Nasal Cannula Nasal Cannula Oxygen Flow Rate 4 2 05/10/23 08:31 05/10/23 08:36 05/10/23 08:36 Temperature Pulse Rate 64 Respiratory Rate 22 Blood Pressure 147/63 H 165/67 H Pulse Oximetry 96 Oxygen Delivery Method Room Air Oxygen Flow Rate 05/10/23 08:40 Temperature Pulse Rate 65 Respiratory Rate 18 Blood Pressure Pulse Oximetry Oxygen Delivery Method Oxygen Flow Rate MDM - Extremity Injury (Lower) Differential Diagnosis Differential diagnosis: Likely ankle sprain and strain, fracture of toe and ankle fracture MDM Narrative Medical decision making narrative: Ankle fracture with dislocation. Neurovascularly intact. Confirmed with x-ray imaging. Ankle was reduced using conscious sedation with traction counter traction maneuvers. Splinted with adequate reduction of fracture fragments confirmed on x-ray imaging. Images shared with Dr. Hernandez of Orthopedic surgery, who will follow the patient in clinic. Pain medication sent to pharmacy. Patient provided crutches and cast/splint care discussed at bedside. Discharge Plan Departure Patient Disposition: Home Clinical Impression: Ankle fracture, bimalleolar, closed Qualifiers: Encounter type: initial encounter Laterality: left Qualified Code(s): S82.842A - Displaced bimalleolar fracture of left lower leg, initial encounter for closed fracture Instructions: DI for Ankle Fracture, How to Take Care of Your Splint, DI for Moderate Sedation Activity Restrictions/Additional Instructions: Call orthopedic surgery as soon as possible to schedule a follow up appointment. Pain medications and muscle relaxers have been sent to the [facility] in [place]. Be sure to take no more than 4000 mg of Tylenol per day. Keep the left leg elevated above heart level to help with swelling. If you notice numbness or stinging pain in your foot I would loosen the findings around her splint, if this does not quickly resolve her symptoms then please return to the emergency department for repeat evaluation. You are being sent home with a narcotic prescription. This may cause drowsiness or dizziness, please do not take this medication with alcohol or operate heavy machinery. These may also cause constipation, I recommended daily stool softener to avoid constipation. Prescriptions: New hydrocodone-acetaminophen 5-325 mg tablet 1 tab PO Q4-6H PRN (Reason: pain) Qty: 15 0RF methocarbamol 500 mg tablet 500 mg PO TID Qty: 30 0RF No Action calcium carbonate 600 MG tablet 600 mg PO QDAY Qty: 0 lithium carbonate 600 mg capsule 900 mg PO BEDTIME sertraline 50 mg tablet 100 mg PO DAILY dqioxcweqjkt-ormo-yqfge acid 18-400 mg-mcg tablet 1 tab PO DAILY atorvastatin 20 mg tablet 20 mg PO BEDTIME Qty: 90 3RF metformin 1,000 mg tablet extended release 24 hr 1,000 mg PO DAILY Qty: 90 3RF Rx Instructions: take one tablet daily omega-3 fatty acids [Fish Oil] PO Vraylar 1.5 mg capsule 1.5 mg PO DAILY Fiber (psyllium husk-sugar) 3.4 gram/7 gram powder 1 tbsp PO BID Qty: 822 0RF Referrals: Paresh Hernandez MD [Physician] - Jaye Hurtado DO [Primary Care Provider] - Stand Alone Forms: Patient Portal/API
[2023-05-10] MEDS: MORPHINE 4 MG/ML INJ IV (07:58)
[2023-05-10] MEDS: LORazepam 2 MG/ML INJ IV (08:13)
[2023-05-10] MEDS: KETAMINE 500 MG/5 ML INJ 100 MG IV (08:22)
--- NOTE | 2023-05-10 08:26 | PC.NURSE ---
Reduced at 0818
--- NOTE | 2023-05-10 08:27 | DI.RAD.S_ITS ---
PROCEDURE: XR ANKLE LT MIN 3V INDICATIONS: post reduction TECHNIQUE: 3 views of the ankle were acquired. COMPARISON: [facility], CR, XR ANKLE LT 2V, 05/10/2023, 7:53. [facility], , ANKLE 3 VIEWS LEFT, 10/25/2014, 13:24. FINDINGS: Bones: Interval casting and reduction, with improved alignment. Medial clear space is homogeneous at the tibiotalar articulation, mildly widened at the fibulotalar reticulation. Displaced posterior and lateral malleolus fractures are present. Soft tissues: No tibiotalar joint effusion. Achilles tendon appears normal. IMPRESSION: Interval reduction with casting, with improved alignment. Dictated by: Scott Tellez M.D. on 05/10/2023 at 8:53 Approved by: Scott Tellez M.D. on 05/10/2023 at 8:55
== END 2023-05-10 10:00 | disposition home or self-care (01) ==
PROVIDERS: Emergency Provider Emergency Medicine; Family Provider Family Medicine; PCP Family Medicine
DX: S82.842A Displaced bimalleolar fracture of left lower leg, initial encounter for closed fracture (principal); W00.0XXA Fall on same level due to ice and snow, initial encounter
CPT/HCPCS: 27752; 73600; 73610; 96374; 96375; 99152; 99284; 99285; J2060; J2270

== ENCOUNTER → 2023-07-19 13:56 | Outpatient (CLI) | payer OTHER, SELFPAY ==
--- NOTE | 2023-07-19 13:57 | DI.MG.S_ITS ---
BILATERAL DIGITAL SCREENING MAMMOGRAM 3D/2D WITH CAD: 07/19/2023 CLINICAL: Routine screening. Comparison is made to exams dated: 06/27/2022 mammogram, 06/08/2021 mammogram, 06/03/2020 mammogram, and 05/30/2019 mammogram - [facility]. There are scattered areas of fibroglandular density in both breasts (category b / 25%-50% glandular tissue). Current study was also evaluated with a Computer Aided Detection (CAD) system. No significant masses, calcifications, or other findings are seen in either breast. There has been no significant interval change. IMPRESSION: NEGATIVE There is no mammographic evidence of malignancy. A 1 year screening mammogram is recommended. Based on the Tyrer Cuzick model (a risk assessment model) the patient's lifetime risk is 9.6% and her 10 year risk is 2.3%. According to the ACR, ACS, and NCCN guidelines, an annual breast MRI exam along with mammogram is recommended if the patient's lifetime risk is 20% or greater. This exam was interpreted at Station ID: [id number]. NOTE: For mammograms, a report in lay terms will be sent to the patient. Approximately 15% of breast malignancies will not be visualized mammographically. In the management of a palpable breast mass, a negative mammogram must not discourage biopsy of a clinically suspicious lesion. Electronically Signed By: Deonte prasad/geoffrey:07/19/2023 17:22:45 letter sent: Normal Exam ACR BI-RADS Category 1: Negative [id number]
== END ==
PROVIDERS: Family Provider Family Medicine; PCP Family Medicine; Referring Provider Family Medicine; Visit Provider Family Medicine
DX: Z12.31 Encounter for screening mammogram for malignant neoplasm of breast (principal); R92.323 Mammographic fibroglandular density, bilateral breasts
CPT/HCPCS: 77063; 77067

== ENCOUNTER → 2023-07-26 06:54 | Outpatient (CLI) | payer OTHER, SELFPAY ==
[2023-07-26 08:16] LABS: Hemoglobin A1C% w Est Avg Glu 6.6 % (4.0-6.0)
[2023-07-26 08:26] LABS: Creatinine Urine Random 64.9 mg/dL
[2023-07-26 08:30] LABS: Microalbumi Creatinin Ratio Ur 12.3 ug/mg CR (<30); Microalbumin Urine Random 0.8 mg/dL (0-1.6)
[2023-07-26 08:32] LABS: BUN Creatinine Ratio 10.7 (6-22); Blood Urea Nitrogen 6 mg/dL (7-17); Calcium 9.2 mg/dL (8.4-10.2); Carbon Dioxide 28 mmol/L (22-32); Chloride 106 mmol/L (98-107); Cholesterol 165 mg/dL (140-199); Estimated Glomerular Filt Rate > 60 mL/min (>60); Glucose 145 mg/dL (70-100); HDL Cholesterol 49 mg/dL (40-60); HEMOLYSIS < 15 (0-50); LDL Cholesterol Calculated 83 mg/dL (<100); Potassium 4.4 mmol/L (3.4-5.1); Sodium 138 mmol/L (137-145); Triglycerides 163 mg/dL (35-150)
[2023-07-26 08:36] LABS: High Sensitivity CRP - Cardiac 2.8 mg/L (1.0-3.0)
== END ==
LOC: LAB 06:55
PROVIDERS: Family Provider Family Medicine; PCP Family Medicine; Referring Provider Family Medicine; Visit Provider Family Medicine
DX: E78.5 Hyperlipidemia, unspecified (principal); E11.9 Type 2 diabetes mellitus without complications; I10 Essential (primary) hypertension
CPT/HCPCS: 36415; 80048; 80061; 82043; 82570; 83036; 86140

== ENCOUNTER → 2024-05-01 06:55 | Outpatient (CLI) | payer OTHER, SELFPAY ==
[2024-05-01 08:10] LABS: Lithium 0.4 mmol/L (0.6-1.2)
[2024-05-01 08:15] LABS: Add Manual Diff / Slide Review NO; Basophils Absolute Auto 100 /uL (0-100); Basophils Percent Auto 0.8 % (0-2); Eosinophils Absolute Auto 400 /uL (0-450); Eosinophils Percent Auto 5.9 % (2-4); Hematocrit 40.7 % (36-46); Hemoglobin 13.9 g/dL (12.0-16.0); Lymphocytes Absolute Auto 1500 /uL (1100-4500); Mean Corpuscular HGB Conc 34.3 % (30-36); Mean Corpuscular Volume 87.7 fL (80-100); Monocytes Absolute Auto 500 /uL (0-900); Monocytes Percent Auto 7.2 % (3-14); Neutrophils Absolute Auto 4700 /uL (1500-7000); Neutrophils Percent Auto 65.1 % (50-75); Platelet Count 366 X10^3/uL (150-400); Red Blood Cell Count 4.64 X10^6/uL (4.0-5.2); Red Cell Distribution Width 12.8 % (11.6-14.8); White Blood Cell Count 7.3 X10^3/uL (4.5-11.0)
[2024-05-01 08:18] LABS: Alanine Aminotransferase 36 IU/L (<35); Albumin 4.5 g/dL (3.5-5.0); Alkaline Phosphatase 59 U/L (38-126); Aspartate Aminotransferase 25 IU/L (14-36); BUN Creatinine Ratio 22.1 (6-22); Bilirubin Total 0.2 mg/dL (0.2-1.3); Blood Urea Nitrogen 15 mg/dL (7-17); Carbon Dioxide 27 mmol/L (22-32); Chloride 103 mmol/L (98-107); Estimated Glomerular Filt Rate > 60 mL/min (>60); Globulin 2.3 g/dL (1.7-4.1); Glucose 143 mg/dL (70-100); HEMOLYSIS < 15 (0-50); Potassium 4.5 mmol/L (3.4-5.1); Sodium 137 mmol/L (137-145); Total Protein 6.8 g/dL (6.3-8.2)
[2024-05-01 08:32] LABS: Prolactin 21.3 ng/mL (3.0-18.6)
[2024-05-01 08:35] LABS: Vitamin D 25 Hydroxy (D3) 34.7 ng/mL (30.0-100.0)
[2024-05-01 08:44] LABS: Thyroid Stimulating Hormone 0.648 uIU/mL (0.47-4.68)
== END ==
LOC: LAB 06:58
PROVIDERS: Family Provider Family Medicine; PCP Family Medicine; Referring Provider Psychiatry & Neurology Psychiatry; Visit Provider Psychiatry & Neurology Psychiatry
DX: F31.9 Bipolar disorder, unspecified (principal); Z79.899 Other long term (current) drug therapy
CPT/HCPCS: 36415; 80053; 80178; 82306; 84146; 84443; 85025

== ENCOUNTER → 2024-07-23 15:51 | Outpatient (CLI) | payer OTHER, SELFPAY ==
--- NOTE | 2024-07-23 15:52 | DI.MG.S_ITS ---
MM screening mammo BI: 07/23/2024. BI-RADS: 1 CLINICAL: 53-year old female for bilateral screening mammogram. Tyrer-Cuzick lifetime risk of 9.4%. No personal or first-degree family history of breast cancer. PRIOR EXAMS: 07/19/2023, 06/27/2022, 06/08/2021, 06/03/2020, 05/30/2019, 05/21/2018, 04/13/2017, 03/28/2016. MAMMOGRAPHY TECHNIQUE: 2D and 3D (tomosynthesis) digital mammographic views obtained, with additional images as needed for full coverage. Current study was also evaluated with a Computer Aided Detection (CAD) system. DENSITY B. There are scattered areas of fibroglandular density. MAMMOGRAPHY FINDINGS Bilateral: No suspicious mass, asymmetry, microcalcification, or other abnormality seen. No significant change from comparison. IMPRESSION: * No evidence of malignancy. RECOMMENDATIONS Bilateral * Annual screening mammography. OVERALL ASSESSMENT CATEGORY BI-RADS-1: Negative. The [employer] recommends annual screening mammography beginning at age 40 for women with average risk of breast cancer. ELECTRONICALLY SIGNED: Ne Cantrell M.D. on 07/24/2024 at 01:01:02 PM PT Interpreting Station ID: [id number]
== END ==
PROVIDERS: Family Provider Family Medicine; PCP Family Medicine; Referring Provider Family Medicine; Visit Provider Family Medicine
DX: Z12.31 Encounter for screening mammogram for malignant neoplasm of breast (principal)
CPT/HCPCS: 77063; 77067

== ENCOUNTER → 2024-12-26 07:23 | Outpatient (CLI) | payer OTHER, SELFPAY ==
[2024-12-26 08:28] LABS: Hemoglobin A1C% w Est Avg Glu 7.0 % (4.0-6.0)
[2024-12-26 08:48] LABS: Alanine Aminotransferase 38 IU/L (<35); Albumin 4.6 g/dL (3.5-5.0); Albumin Globulin Ratio 1.8 (1.0-2.8); Alkaline Phosphatase 79 U/L (38-126); Blood Urea Nitrogen 9 mg/dL (7-17); Calcium 9.2 mg/dL (8.4-10.2); Carbon Dioxide 22 mmol/L (22-32); Chloride 102 mmol/L (98-107); Cholesterol 177 mg/dL (140-199); Estimated Glomerular Filt Rate > 60 mL/min (>60); Globulin 2.6 g/dL (1.7-4.1); Glucose 147 mg/dL (70-99); HDL Cholesterol 46 mg/dL (40-60); HEMOLYSIS < 15 (0-50); Potassium 4.6 mmol/L (3.4-5.1); Sodium 135 mmol/L (137-145); Total Protein 7.2 g/dL (6.3-8.2); Triglycerides 206 mg/dL (35-150)
[2024-12-27 03:40] LABS: CRP, High Sensitivity 2.55 mg/L (0.00-3.00)
== END ==
PROVIDERS: PCP Family Medicine; Referring Provider Family Medicine; Visit Provider Family Medicine
DX: Z00.00 Encounter for general adult medical examination without abnormal findings (principal); E11.9 Type 2 diabetes mellitus without complications; E78.5 Hyperlipidemia, unspecified
CPT/HCPCS: 36415; 80053; 80061; 83036; 86140

== ENCOUNTER → 2025-04-09 07:34 | Outpatient (CLI) | payer OTHER, SELFPAY ==
[2025-04-09 08:24] LABS: Hemoglobin A1C% w Est Avg Glu 6.3 % (4.0-6.0)
[2025-04-09 08:25] LABS: Alanine Aminotransferase 54 IU/L (<35); Albumin 4.8 g/dL (3.5-5.0); Albumin Globulin Ratio 1.9 (1.0-2.8); Alkaline Phosphatase 61 U/L (38-126); Blood Urea Nitrogen 12 mg/dL (7-17); Calcium 9.4 mg/dL (8.4-10.2); Carbon Dioxide 24 mmol/L (22-32); Chloride 105 mmol/L (98-107); Estimated Glomerular Filt Rate > 60 mL/min (>60); Globulin 2.5 g/dL (1.7-4.1); Glucose 134 mg/dL (70-99); HEMOLYSIS < 15 (0-50); Potassium 4.4 mmol/L (3.4-5.1); Sodium 139 mmol/L (137-145); Total Protein 7.3 g/dL (6.3-8.2)
== END ==
LOC: LAB 07:35
PROVIDERS: PCP Family Medicine; Referring Provider Family Medicine; Visit Provider Family Medicine
DX: E11.9 Type 2 diabetes mellitus without complications (principal); R74.8 Abnormal levels of other serum enzymes
CPT/HCPCS: 36415; 80053; 83036